=== PATIENT | female | born 1940 | race African-American/Black ===

== ENCOUNTER 2022-04-05 06:38 | Emergency (ER) | payer MEDICARE, OTHER ==
[~2022-04-05] VITALS: Ht 165.1 cm; Wt 64.0 kg
[2022-04-05] MEDS ORDERED: SODIUM CHLORIDE 0.9% 1,000 ML IV ONE (09:00)
[2022-04-05] MEDS ORDERED: NEOMYCIN-BACITRACIN-POLYM UNITDOSE PKG TOP OINT TOP ONE (09:00)
[2022-04-05] MEDS ORDERED: LIDOCAINE 2%HCL (LOCAL ANESTH.) INJ 20ML MDV ID ONE (09:00)
[2022-04-05 09:55] LABS: Basophils # (auto) 0 10 ^3/uL (0-0.2); Eosinophils # (auto) 0.2 10 ^3/uL (0-0.8); Eosinophils % (auto) 4.8 % (0.0-7.0); Hematocrit 29.6 % (36.0-46.0); Hemoglobin 9.8 g/dL (12.2-16.2); Lymphocytes # (auto) 0.9 10 ^3/uL (0.4-5.4); Lymphocytes % (auto) 20.7 % (10.0-50.0); Mean Corpuscular Hemoglobin 32.5 pg (28.0-32.0); Mean Corpuscular Hgb Conc. 33.2 g/dL (32.0-36.0); Monocytes # (auto) 0.3 10 ^3/uL (0-1.3); Monocytes % (auto) 6.9 % (0.0-12.0); Neutrophils # (auto) 2.9 10 ^3/uL (1.6-8.6); Neutrophils % (auto) 66.6 % (37.0-80.0); Nucleated Red Blood Cells % 0.4 %; Red Blood Cells 3.02 10^6/uL (4.0-5.20); Red Cell Distribution Width 16.4 % (11.8-14.3); White Blood Cell 4.4 10^3/uL (4.4-10.8)
[2022-04-05 10:26] LABS: Albumin 2.8 g/dL (3.4-5.0); Calcium 8.2 mg/dL (8.5-10.1); Magnesium 2.5 mg/dL (1.6-2.6); Potassium 4.1 mmol/L (3.5-5.1)
[2022-04-05 10:30] LABS: BUN/Creatinine Ratio 17.4; Bilirubin, Total 0.3 mg/dL (0.2-1.0); Total Protein 5.2 g/dL (6.4-8.2)
[2022-04-05 12:05] VITALS: BP 133/78
[2022-04-05 12:49] LABS: Urine Bacteria NONE SEEN /hpf (None Seen); Urine Blood Negative /uL (Negative); Urine Specific Gravity 1.014 (1.001-1.035); Urine WBC 1 /hpf (0 - 5)
== END 2022-04-05 14:28 | disposition home or self-care (01) ==
LOC: ER 06:38 → EDBD 06:38 → ER 14:13
DX: S01.81XA Laceration without foreign body of other part of head, initial encounter (principal); M47.892 Other spondylosis, cervical region; D64.9 Anemia, unspecified; I10 Essential (primary) hypertension; Z90.710 Acquired absence of both cervix and uterus; W19.XXXA Unspecified fall, initial encounter; Y93.89 Activity, other specified; Y92.89 Other specified places as the place of occurrence of the external cause; Y99.8 Other external cause status
CPT/HCPCS: 36415; 70450; 72125; 80053; 81001; 83735; 84484; 85025; 93005

== ENCOUNTER 2024-10-12 11:37 | Emergency (ER) | payer OTHER ==
[~2024-10-12] VITALS: Ht 160 cm; Wt 60.0 kg
[~2024-10-12 11:37] MED LIST: MELO7.5T7 PO
--- NOTE | 2024-10-12 12:02 | ED.PDOC ---
Tima. trauma (HPI) HPI Comments 84 y/o F, with PMHx of HTN, CALINA presents to the ED for CC of s/p fall injury. EMS reports, patient is coming from home where emergency medical services were called by her home health nurse, d/t patient suffering a ground level fall on Wednesday (10/08/24). Patient states, she accidently fell to the ground landing on her left side on Wednesday (10/11/24). Patient relays, that she has been able to bear weight onto her left leg and walk appropriately without pain. Patient comments on, being able to bend at the hips appropriately states "I was picking weeds yesterday". Patient denies pain, head injury, loss of consciousness, nausea, or vomiting. No other symptoms or modifying factors present at this t anisa. Time Seen by MD: 11:45 Primary Care Provider: GEORGIE Reviewed notes: Nurses Notes, Medications, Allergies Allergies: Coded Allergies: Memantine (Verified Allergy, Severe, 08/20/23) Home Meds Active Scripts Meloxicam (Meloxicam) 7.5 Mg Tab, 7.5 MG PO DAILY PRN, #30 TAB Prov:TATE PATEL [facility] 08/20/23 Information Source: Patient, Emergency Med Personnel Mode of Arrival: EMS Severity: Moderate Timing: Days Duration: Since onset Prehospital treatment: None Location: (L) Ankle, (L) Hip Location of laceration: None Mechanism: Fall Associated signs and symtoms: None Past Medical History PAST MEDICAL HISTORY: HTN Surgical History: Hysterectomy RESIDENTIAL FEE APPRAISER History: Denies all RESIDENTIAL FEE 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 Hx Family History Family History: Reviewed,noncontributory to illness Social History Smoker: Non-Smoker Alcohol: Denies ETOH Use Drugs: Denies Drug Use Lives In: Home Constitutional: denies: chills, diaphoresis, fatigue, fever, malaise, sweats, weakness, others EENTM: denies: blurred vision, double vision, ear bleeding, ear discharge, ear drainage, ear pain, ear ringing, eye pain, eye redness, hearing loss, mouth pain, mouth swelling, nasal discharge, nose bleeding, nose congestion, nose pain, photophobia, tearing, throat pain, throat swelling, voice changes, others Respiratory: denies: cough, hemoptysis, orthopnea, SOB at rest, shortness of breath, SOB with excertion, stridor, wheezing, others Cardiovascular: denies: chest pain, dizzy spells, diaphoresis, Dyspnea on exertion, edema, irregular heart beat, left arm pain, lightheadedness, palpitations, PND, syncope, others Gastrointestinal: denies: abdomen distended, abdominal pain, blood streaked bowels, constipated, diarrhea, dysphagia, difficulty swallowing, hematemesis, melena, nausea, poor appetite, poor fluid intake, rectal bleeding, rectal pain, vomiting, others Genitourinary: denies: abnormal vagina bleeding, burning, dyspareunia, dysuria, flank pain, frequency, hematuria, incontinence, pain, , vagina discharge, urgency, others Neurological: denies: dizziness, fainting, headache, left sided numbness, left sided weakness, numbness, paresthesia, pre-existing deficit, right sided numbness, right sided weakness, seizure, speech problems, tingling, tremors, weakness, others Musculoskeletal: reports: back pain; denies: gout, joint pain, joint swelling, muscle pain, muscle stiffness, neck pain, others Integumetry: denies: bruises, change in color, change in hair/nails, dryness, laceration, lesions, lumps, rash, wounds, others Allergic/Immunocompromised: denies: Difficulty Healing, Frequent Infections, Hives, Itching, others Hematologic/Lymphatic: denies: anemia, blood clots, easy bleeding, easy bruising, swollen glands, others Endocrine: denies: excessive hunger, excessive sweating, excessive thirst, excessive urination, flushing, intolerance to cold, intolerance to heat, unexplained weight gain, unexplained weight loss, others Psychiatric: denies: anxiety, bipolar disorder, depression, hopeless, panic disorder, schizophrenia, sleepless, suicidal, others All Other Systems: Reviewed and Negative Physical Exam General Appearance: Moderate Distress HEENT: Normal ENT Inspection, Pharynx Normal, TMs Normal Neck: Full Range of Motion, Non-Tender, Normal, Normal Inspection Respiratory: Chest Non-Tender, Lungs Clear, No Accessory Muscle Use, No Respiratory Distress, Normal Breath Sounds Cardiovascular: No Edema, No JVD, No Murmur, No Gallop, Normal Peripheral Pulses, Regular Rate/Rhythm Breast Exam: Deferred Gastrointestinal: No Organomegaly, Non Tender, No Pulsatile Mass, Normal Bowel Sounds, Soft Genitalia: Deferred Pelvic: Deferred Rectal: Deferred Extremities: No calf tenderness, Normal capillary refill, Normal inspection, Normal range of motion, Non-tender, No pedal edema Musculoskeletal : Apperance: Normal Neurologic: Alert, financial report service sales agent II-XII nml as Tested, No Motor Deficits, Normal Affect, Normal Mood, No Sensory Deficits Cerebellar Function: NOT DONE Reflexes: NOT DONE Skin: Dry, Normal Color, Warm Peripheral Pulses: 3+ Radial (R), 3+ Radial (L) Lymphatic: No Adenopathy Was a procedure done? Was a procedure done?: No Differential Diagnosis Multiple Trauma: Fractures, Spine Injury X-Ray, Labs, Meds, VS Vital Signs Date Time Temp Pulse Resp B/P (MAP) Pulse Ox O2 Delivery O2 Flow Rate FiO2 10/12/24 12:11 98.3 68 16 114/65 (81) 97 98.3 [place] [address] Ph: [phone] DIAGNOSTIC IMAGING Diagnostic Imaging Report : [id number] Signed PATIENT: KERRY BARRON ACCT: [id number] UNIT: [id number] : 1940 LOC: ER ROOM / BED: / AGE / SEX: 84 / F ADM STATUS: REG ER SERVICE 1143 ORDERING PHYSICIAN: CHAS BONILLA MD PROCEDURE(s): PELVS - PELVIS AP REASON: fall ORDER NUMBER(s): [id number], ACCESSION NUMBER(s): [id number] CLINICAL INDICATION: fall TECHNIQUE: XY PELVIS AP Comparison: CT PELVIS WO CONTRAST on DOS: 08/20/23. For reasons unknown, left hip and femur radiographs dated 09/25/2024 were not made available on the PACS system for viewing. FINDINGS/IMPRESSION: : 1. No acute fracture of the pelvis or hips. 2. Postoperative changes of left proximal femoral trochanteric nail fixation. T he femoral stem is not fully imaged here. Please correlate with left hip and left femur radiographs dated 09/25/2024, as those were not made available for my viewing at the time of this reading. 3. Advanced lower lumbar degenerative disc disease and facet arthropathy, not fully imaged here. ATED BY: SCOTTY WILLINGHAM MD DICTATED DATE/TIME: 10/12/24 1238 SIGNED BY: SCOTTY WILLINGHAM MD SIGNED DATE/TIME: 10/12/24 1238 CC: [place] [address] Ph: [phone] DIAGNOSTIC IMAGING Diagnostic Imaging Report : [id number] Signed PATIENT: KERRY BARRON ACCT: [id number] UNIT: [id number] : 1940 LOC: ER ROOM / BED: / AGE / SEX: 84 / F ADM STATUS: REG ER SERVICE 120 ORDERING PHYSICIAN: CHAS BONILLA MD PROCEDURE(s): LUMB2 - LUMBAR SPINE 3 VIEW REASON: PAIN S/P FALL ORDER NUMBER(s): [id number], ACCESSION NUMBER(s): [id number] INDICATION: PAIN S/P FALL TECHNIQUE: 4 views of the lumbar spine were obtained. COMPARISON: None FINDINGS/IMPRESSION: No acute subluxation. Grade 1 anterolisthesis of L4 on L5. Diffuse osteopenia limits sensitivity of the examination. Age indeterminate likely chronic compression fractures of L5 and L2 vertebral body. Age indeterminate compression deformity, mild of the T12 vertebral body. ATED BY: DEVON CLARK MD DICTATED DATE/TIME: 10/12/24 1248 SIGNED BY: DEVON CLARK MD SIGNED DATE/TIME: 10/12/24 1248 CC: Patient alert. Complaining of hip pain. Vitals stable. Answering questions. She did fall several days ago. Has been ambulating since then. Pristine physical examination. Explained to the patient. Was told to follow up with her primary care physician. Was told to come back if there is any problem. Time of 1ST Reevaluation: 12:15 Reevaluation 1ST: Unchanged Patient Education/Counseling: Diagnosis, Treatment Family Education/Counseling: No Family Present Departure 1 Departure Time of Disposition: 12:42 Impression: Primary Impression: Degenerative disc disease Qualified Codes: M51.369 - Other intervertebral disc degeneration, lumbar region without mention of lumbar back pain or lower extremity pain Disposition: ADMITTED INPATIENT Admit to: Med Surg Condition: Guarded Critical Care Note Critical Care Time?: No Stability Stability form required: No Heart Score Heart Score: Heart Score Response (Comments) Value History N/A 0 EKG N/A 0 Age N/A 0 Risk Factors N/A 0 Troponin N/A 0 Total 0 I personally scribed for CHAS BONILLA MD ([email or web address]) on 10/12/24 at 12:02. Electronically submitted by Marine Washington ([employer] I personally scribed for CHAS BONILLA MD ([email or web address]) on 10/12/24 at 12:09. Electronically submitted by Marine Washington ([employer]). I personally scribed for CHAS BONILLA MD ([email or web address]) on 10/12/24 at 13:39. Electronically submitted by Marine Washington ([employer]). I personally scribed for CHAS BONILLA MD ([email or web address]) on 10/12/24 at 13:40. Electronically submitted by Marine Washington ([employer]). CHAS BONILLA MD October 12, 2024 12:02
--- NOTE | 2024-10-12 12:41 | DVH ---
CLINICAL INDICATION: fall TECHNIQUE: XY PELVIS AP Comparison: CT PELVIS WO CONTRAST on DOS: 08/20/23. For reasons unknown, left hip and femur radiograph s dated 09/25/2024 were not made available on the PACS system for viewing. FINDINGS/IMPRESSION: : 1. No acute fracture of the pelvis or hips. 2. Postoperative changes of left proximal femoral trochanteric nail fixation. The femoral stem is not fully imaged here. Please correlate with left hip and left femur radiographs dated 09/25/2024, as th ose were not made available for my viewing at the time of this reading. 3. Advanced lower lumbar degenerative disc disease and facet arthropathy, not fully imaged here.
--- NOTE | 2024-10-12 12:50 | DVH ---
INDICATION: PAIN S/P FALL TECHNIQUE: 4 views of the lumbar spine were obtained. COMPARISON: None FINDINGS/IMPRESSION: No acute subluxation. Grade 1 anterolisthesis of L4 on L5. Diffuse osteopenia limits sensitivity of the examination. Age indeterminate likely chronic compression fractures of L5 and L2 vertebral body. Age indeterminate compression deformity, mild of the T12 vertebral body.
[2024-10-12 13:42] VITALS: BP 130/73; PULSE 69; RESP 18; TEMP 98.7; O2SAT 97
== END 2024-10-12 14:05 | disposition home or self-care (01) ==
LOC: EDBD 11:37 → ER 11:37 → EDUNIT# 11:37 → ER 14:05
DX: M51.369 Other intervertebral disc degeneration, lumbar region without mention of lumbar back pain or lower extremity pain (principal); I10 Essential (primary) hypertension; Z90.710 Acquired absence of both cervix and uterus; Z79.899 Other long term (current) drug therapy; Z88.8 Allergy status to other drugs, medicaments and biological substances
CPT/HCPCS: 72100; 72170

== ENCOUNTER 2024-11-13 00:01 | Inpatient (IN) | payer OTHER ==
[~2024-11-13] VITALS: Ht 157.5 cm; Wt 73.2 kg
[2024-11-13 00:31] VITALS: PULSE 68; RESP 18; O2SAT 97
[2024-11-13 00:44] LABS: Hematocrit 31.7 % (36.0-46.0); Hemoglobin 10.5 g/dL (12.2-16.2); Mean Corpuscular Hemoglobin 31.6 pg (28.0-32.0); Mean Corpuscular Volume 95.3 fL (80.0-100.0)
[2024-11-13 00:50] LABS: Potassium 4.3 mmol/L (3.5-5.1); Sodium 142 mmol/L (136-145)
[2024-11-13 00:51] LABS: Anion Gap 11 (5-15); Carbon Dioxide 24 mmol/L (20-31)
[2024-11-13 00:56] LABS: BUN/Creatinine Ratio 16.2 (10.0-20.0); Blood Urea Nitrogen 16 mg/dL (9-23); Glucose 96 mg/dL (74-106)
[2024-11-13] MEDS: fentaNYL CITRATE 100 MCG/2 ML VL IV ONE (00:58)
--- NOTE | 2024-11-13 00:58 | DVH ---
CLINICAL INDICATION: injury TECHNIQUE: XY R SHOULDER 2+ VIEW XRAY Comparison: None FINDINGS/IMPRESSION: : There is no evidence of acute fracture or dislocation. The humeral head is moderately high riding. [id number] glenohumeral joint space narrowing and m arginal osteophytosis and moderate hypertrophic acromioclavicular arthropathy and joint space narrowi ng. Soft tissues are unremarkable.
[2024-11-13 01:11] LABS: Calcium 8.7 mg/dL (8.7-10.4); Chloride 107 mmol/L (98-107)
--- NOTE | 2024-11-13 01:30 | ED.PDOC ---
History of Present Illness HPI Comments 84 y/o F is BIBA from home for c/o right hip and shoulder pain s/p mechanical fall and head injury. Per EMS report, patient's daughter called after having an unwitnessed fall. Patient reports on losing her balance, while ambulating with her walker, and falling backwards and hitting her head without lost of c onsciousness, yesterday evening at around 1700. She has a significant history of DJD, DDD, HTN, left hip repair, chronic bilateral ankle swelling - on Lasix, and frequent falls. Vitals were within normal limits. No history of blood thinner use. Patient denies any headache, weakness, dizziness, lightheadedness, additional injuries, or further associated symptoms. Chief Complaint: Fall Injury Time Seen by MD: 00:15 Primary Care Provider: UNKNOWN Reviewed Notes: Nurses Notes, Chief Bank Examiner Notes, Medications, Allergies Allergies: Coded Allergies: Memantine (Verified Allergy, Severe, 08/20/23) Home Meds Active Scripts Meloxicam (Meloxicam) 7.5 Mg Tab, 7.5 MG PO DAILY PRN, #30 TAB Prov:TATE PATEL [facility] 08/20/23 Information Source: Patient, Emergency Med Personnel Mode of Arrival: EMS Severity: Moderate Timing: Hours Duration: Since onset Prehospital treatment: 12 Lead EKG, Accucheck, Broadcast Program Director Past Medical History PAST MEDICAL HISTORY: HTN Past Medical History (Other): DDD DJD frequent falls Surgical History: Hysterectomy Surgical History (Other): left hip repair SH[employer]ILL[employer] History: Denies all [employer] Hx Family History Family History: Reviewed,noncontributory to illness Social History Smoker: Non-Smoker Alcohol: Denies ETOH Use Drugs: Denies Drug Use Lives In: Home All Other Systems: Reviewed and Negative (Comprehensive systems review obtained and negative except for what is stated in the HPI.) Physical Exam General Appearance: No Apparent Distress, Normal HEENT: Normal ENT Inspection, Pharynx Normal, TMs Normal Neck: Full Range of Motion, Non-Tender, Normal, Normal Inspection Respiratory: Chest Non-Tender, Lungs Clear, No Accessory Muscle Use, No Respiratory Distress, Normal Breath Sounds Cardiovascular: No Edema, No JVD, No Murmur, No Gallop, Normal Peripheral Pulses, Regular Rate/Rhythm Breast Exam: Deferred Gastrointestinal: No Organomegaly, Non Tender, No Pulsatile Mass, Normal Bowel Sounds, Soft Genitalia: Deferred Pelvic: Deferred Rectal: Deferred Extremities: Leg edema (3+ bilateral pedal edema ), No calf tenderness, Normal capillary refill, Normal range of motion, No pedal edema, Tender (right shoulder and proxisymal thigh tenderness ) Musculoskeletal : Location: Right Extremity Location: Shoulder, Thigh Apperance: Normal, Tenderness Neurologic: Alert, short range air defense artillery II-XII nml as Tested, No Motor Deficits, Normal Affect, Normal Mood, No Sensory Deficits Cerebellar Function: Normal Reflexes: Normal Skin: Dry, Normal Color, Warm Lymphatic: No Adenopathy Was a procedure done? Was a procedure done?: No Differential Dx Considerations may include: fractures, dislocations, contusions, bruising, closed head injury, sprain, among others X-Ray, Labs, Meds, VS Vital Signs Date Time Temp Pulse Resp B/P (MAP) Pulse Ox O2 Delivery O2 Flow Rate FiO2 11/13/24 00:58 120/78 11/13/24 00:31 98.1 74 18 119/64 (82) 97 98.1 11/13/24 00:31 68 18 97 Room Air* 0 21 11/13/24 00:10 98.4 73 20 98 98.4 Lab Test 11/13/24 00:31 Range/Units White Blood Count 13.1 H 4.4-10.8 10^3/uL Red Blood Count 3.33 L 4.0-5.20 10^6/uL Hemoglobin 10.5 L 12.2-16.2 g/dL Hematocrit 31.7 L 36.0-46.0 % Mean Corpuscular Volume 95.3 80.0-100.0 fL Mean Corpuscular Hemoglobin 31.6 28.0-32.0 pg Mean Corpuscular Hemoglobin Concent 33.2 32.0-36.0 g/dL Red Cell Distribution Width 24.0 H 11.8-14.3 % Platelet Count 383 140-450 10^3/uL Mean Platelet Volume 7.3 6.9-10.8 fL Neutrophils (%) (Auto) 37.0-80.0 % Lymphocytes (%) (Auto) 10.0-50.0 % Monocytes (%) (Auto) 0.0-12.0 % Basophils (%) (Auto) 0.0-2.0 % Neutrophils # (Auto) 1.6-8.6 10 ^3/uL Lymphocytes # (Auto) 0.4-5.4 10 ^3/uL Monocytes # (Auto) 0-1.3 10 ^3/uL Differential Total Cells Counted 100.0 100 Neutrophils % (Manual) 39 37.0-80.0 Band Neutrophils % (Manual) 0 Lymphocytes % (Manual) 36 10.0-50.0 Monocytes % (Manual) 3 0-12 Eosinophils % (Manual) 22 H 0-7 Basophils % (Manual) 0 0.0-2.0 Metamyelocytes % (manual) 0 Myelocytes % (Manual) 0 Promyelocytes % (Manual) 0 Blast Cells % (Manual) 0 Reactive Lymphocytes 0 Platelet Estimate Adequate Anisocytosis (manual) Slight Sodium Level 142 136-145 mmol/L Potassium Level 4.3 3.5-5.1 mmol/L Chloride Level 107 98-107 mmol/L Carbon Dioxide Level 24 20-31 mmol/L Anion Gap 11 5-15 Blood Urea Nitrogen 16 9-23 mg/dL Creatinine 0.99 0.550-1.02 mg/dL Glomerular Filtration Rate Calc 56 >90 mL/min BUN/Creatinine Ratio 16.2 10.0-20.0 Serum Glucose 96 74-106 mg/dL Calcium Level 8.7 8.7-10.4 mg/dL Current Medications Medications (Trade) Dose Ordered Sig/Santiago Route Start Time Stop Time Status Last Admin Fentanyl Citrate 12.5 mcg ONCE ONCE IV 11/13/24 00:30 11/13/24 00:31 DC 11/13/24 00:58 [place] [address] Ph: [phone] DIAGNOSTIC IMAGING Diagnostic Imaging Report : [id number] Signed PATIENT: KERRY BARRON ACCT: [id number] UNIT: [id number] : 1940 LOC: ER ROOM / BED: / AGE / SEX: 84 / F ADM STATUS: REG ER SERVICE 0018 ORDERING PHYSICIAN: KAYLYN ALEX MD PROCEDURE(s): RSHD2 - R SHOULDER 2+ VIEW XRAY REASON: injury ORDER NUMBER(s): [id number], ACCESSION NUMBER(s): [id number] CLINICAL INDICATION: injury TECHNIQUE: XY R SHOULDER 2+ VIEW XRAY Comparison: None FINDINGS/IMPRESSION: : There is no evidence of acute fracture or dislocation. The humeral head is moderately high riding. Xpki-[id number] glenohumeral joint space narrowing and marginal osteophytosis and moderate hypertrophic acromioclavicular arthropathy and joint space narrowing. Soft tissues are unremarkable. ATED BY: JEFF BARRERA MD DICTATED DATE/TIME: 11/13/2455 SIGNED BY: JEFF BARRERA MD SIGNED DATE/TIME: 11/13/2455 CC: Time of 1ST Reevaluation: 00:45 Reevaluation 1ST: Unchanged Time of 2ND Reevaluation: 01:36 Reevaluation 2ND: Unchanged Patient Education/Counseling: Diagnosis, Treatment, Prognosis, Need For Follow Up Family Education/Counseling: No Family Present Comments pt suffered a fall, injuring her right hip, with intractable pain, and inability to bear weight. she will be admitted for pain control and further Evaluation Additional Information Previous visits reviewed: April 05, 2022, August 20, 2023, and October 12, 2024 encounters for fall at home, fracture of finger of right hand, and degenerative disc disease, respectively The following tests were ordered, and results were reviewed by me: manual differentia, BMP, CBC, CT right hip w/o contrast, right shoulder X-ray Additional Information was gathered from interviewing the following independent historians: EMS I reviewed and agreed with the following test results read by other providers: CT right hip w/o contrast, right shoulder X-ray I discussed treatment and results with medical personnel and: patient SEPSIS Sepsis Screen Date sepsis recognized/suspect: Nov 13, 2024 Time Sepsis recognized/suspect: 003 Recent Procedure: No On Antibiotic Therapy: No Respiratory Rate >20: No Heart Rate >90: No Temp<36 C (96.8 F) or >38.3 C: No SBP <90 or MAP <65 mmHG: No New Acute Mental Status Change: No Is the patient on CPAP, BIPAP,: No Physician Orders R Shoulder 2+ View Xray (11/13/24 00:18) Ct R Hip With Out Contrast (11/13/24 00:18) Vital Signs Date Time Temp Pulse Resp B/P (MAP) Pulse Ox O2 Delivery O2 Flow Rate FiO2 11/13/24 00:58 120/78 11/13/24 00:31 98.1 74 18 119/64 (82) 97 98.1 11/13/24 00:31 68 18 97 Room Air* 0 21 11/13/24 00:10 98.4 73 20 98 98.4 Laboratory Tests Test 11/13/24 00:31 White Blood Count 13.1 10^3/uL (4.4-10.8) H Medications Medications Dose Ordered Sig/Santiago Route Start Time Stop Time Status Last Admin Dose Admin Fentanyl Citrate 12.5 mcg ONCE ONCE IV 11/13/24 00:30 11/13/24 00:31 DC 11/13/24 00:58 Departure 1 Departure Time of Disposition: 02:37 Impression: Primary Impression: Pubic ramus fracture Qualified Codes: S32.591A - Other specified fracture of right pubis, initial encounter for closed fracture Additional Impressions: Intractable pain Fall Qualified Codes: W19.XXXA - Unspecified fall, initial encounter Disposition: ADMITTED INPATIENT Admit to: Med Surg Condition: Stable Discharged With: Self Critical Care Note Critical Care Time?: Yes (45 min-critical care time only) Critical care comment: Due to concerns for patients condition deteriorating, the care required my highest level of attention and readiness to intervene. I assessed the patient, reviewed the medical records, ordered the appropriate tests and treatments, then reassessed for results and responsiveness. I communicated with medical personnel and consultants and formulated a plan of care. Total critical care time excludes any procedures Stability Stability form required: No Heart Score Heart Score: Heart Score Response (Comments) Value History N/A 0 EKG N/A 0 Age N/A 0 Risk Factors N/A 0 Troponin N/A 0 Total 0 I personally scribed for KAYLYN ALEX MD ([email or web address]) on 11/13/24 at 01:30. Electronically submitted by Primitivo Bell ([email or web address]). I personally scribed for KAYLYN ALEX MD ([email or web address]) on 11/13/24 at 02:01. Electronically submitted by Primitivo Bell ([email or web address]). KAYLYN ALEX MD Nov 13, 2024 01:30
[2024-11-13 01:45] LABS: Anisocytosis Slight; Total Cells Counted 100.0 (100)
--- NOTE | 2024-11-13 02:17 | DVH ---
INDICATION: injury COMPARISON: None TECHNIQUE: CT of the rightleft was performed without contrast. Volume transverse images were obtain ed and reconstructed in multiple planes using bone and soft tissue algorithms. Radiation Dose Information: CT Dose: CTDI volume is 16.39 mGy. Dose-length product is 480.37 mGy*cm FINDINGS: Faint irregular linear lucency within the medial aspect of the superior right pubic ramus best visual ized on image 69 of series 601 and image 70 of series 602, consistent with acute to subacute nondis placed fracture. Moderate osteoarthritic degenerative change of the right hip includes joint space narrowing, marginal osteophytosis and acetabular subchondral sclerosis. The alignment is otherwise normal. The joint spaces are normal. There is no joint effusion. The soft tissues are normal status post hysterectomy. IMPRESSION: 1. Acute to subacute nondisplaced fracture of the medial right superior pubic ramus. 2. Degenerative change of the right hip. 3. All CT scans at this medical facility are performed using dose modulation techniques as appropriat e to a performed exam including the following: Automated exposure control was utilized; adjustment of the MA and/or KV according to patient size; and use of iterative reconstruction technique.
[2024-11-13 07:30] VITALS: PULSE 82; RESP 20; O2SAT 97
--- NOTE | 2024-11-13 07:57 | DVHHP2 ---
History of Present Illness Reason for Visit: Fall with injury History of Present Illness Gabriela Lunsford is an 84-year-old female with past medical history of hypertension, and DJD who came to the hospital S/P fall. Patient ambulates with a walker. She states she was walking and her slipper slipped, she lost her footing and fell back. She complains of shoulder and hip pain. Cardiovascular: HTN Musculoskeletal: Other (DDD) Past Surgical History: Hysterectomy, Total hip replacement (left) Smoke: No ALCOHOL: none Drugs: None Lives: with Family Domestic Violence: Neg Review of Systems Constitutional: No: Fever, Chills, Sweats, Weakness, Malaise, Other Eyes: No: Pain, Vision change, Conjunctivae inflammation, Eyelid inflammation, Other, Redness ENT: No: Ear pain, Ear discharge, Nose pain, Nose discharge, Nose congestion, Mouth pain, Mouth swelling, Throat pain, Throat swelling, Other Respiratory: No: Cough, Dry, Shortness of breath, SOB with excertion, Wheezing, Hemoptysis, Pleuritic Pain, Sputum, Wheezing, Other Cardiovascular: No: Chest Pain, Palpitations, Orthopnea, Paroxysmal Noc. Dyspnea, Edema, Lt Headedness, Other Gastrointestinal: No: Nausea, Vomiting, Abdominal Pain, Diarrhea, Constipation, Melena, Hematochezia, Other Genitourinary: No Dysuria, No Frequency, No Incontinence, No Hematuria, No Retention, No Other Musculoskeletal: shoulder pain (right), leg pain (right hip); No: other, neck pain, arm pain, back pain, hand pain, foot pain Skin: No: Rash, Lesions, Jaundice, Bruising, Other Neurological: No: Weakness, Numbness, Incoordination, Change in speech, Confusion, Seizures, Other Allergies: Coded Allergies: Memantine (Verified Allergy, Severe, 08/20/23) Exam Vital Signs Vital Signs Date Time Temp Pulse Resp B/P (MAP) Pulse Ox O2 Delivery O2 Flow Rate FiO2 11/13/24 05:49 98.1 67 18 129/67 (87) 99 98.1 11/13/24 00:31 Room Air* 0 21 General Appearance: Alert, Oriented X3, Cooperative, mild distress HEENT: Atraumatic, PERRLA Respiratory: Clear to auscultation, Normal air movement Cardiovascular: Normal S1, Normal S2, Other (SB-SR) Abdominal: Normal bowel sounds, Soft, No tenderness Extremities: No clubbing, No cyanosis, Other (right shoulder pain, right hip pain) Skin: No rashes, No breakdown, No significant lesion Neuro: Normal speech, Other (Difficulty ambulation due to pain) Psych/Mental Status: Mental status NL, Mood NL Labs/Xrays Labs Test 11/13/24 00:31 Range/Units White Blood Count 13.1 H 4.4-10.8 10^3/uL Red Blood Count 3.33 L 4.0-5.20 10^6/uL Hemoglobin 10.5 L 12.2-16.2 g/dL Hematocrit 31.7 L 36.0-46.0 % Mean Corpuscular Volume 95.3 80.0-100.0 fL Mean Corpuscular Hemoglobin 31.6 28.0-32.0 pg Mean Corpuscular Hemoglobin Concent 33.2 32.0-36.0 g/dL Red Cell Distribution Width 24.0 H 11.8-14.3 % Platelet Count 383 140-450 10^3/uL Mean Platelet Volume 7.3 6.9-10.8 fL Neutrophils (%) (Auto) 37.0-80.0 % Lymphocytes (%) (Auto) 10.0-50.0 % Monocytes (%) (Auto) 0.0-12.0 % Basophils (%) (Auto) 0.0-2.0 % Neutrophils # (Auto) 1.6-8.6 10 ^3/uL Lymphocytes # (Auto) 0.4-5.4 10 ^3/uL Monocytes # (Auto) 0-1.3 10 ^3/uL Differential Total Cells Counted 100.0 100 Neutrophils % (Manual) 39 37.0-80.0 Band Neutrophils % (Manual) 0 Lymphocytes % (Manual) 36 10.0-50.0 Monocytes % (Manual) 3 0-12 Eosinophils % (Manual) 22 H 0-7 Basophils % (Manual) 0 0.0-2.0 Metamyelocytes % (manual) 0 Myelocytes % (Manual) 0 Promyelocytes % (Manual) 0 Blast Cells % (Manual) 0 Reactive Lymphocytes 0 Platelet Estimate Adequate Anisocytosis (manual) Slight Sodium Level 142 136-145 mmol/L Potassium Level 4.3 3.5-5.1 mmol/L Chloride Level 107 98-107 mmol/L Carbon Dioxide Level 24 20-31 mmol/L Anion Gap 11 5-15 Blood Urea Nitrogen 16 9-23 mg/dL Creatinine 0.99 0.550-1.02 mg/dL Glomerular Filtration Rate Calc 56 >90 mL/min BUN/Creatinine Ratio 16.2 10.0-20.0 Serum Glucose 96 74-106 mg/dL Calcium Level 8.7 8.7-10.4 mg/dL CT of the right hip was performed without contrast. FINDINGS: Faint irregular linear lucency within the medial aspect of the superior right pubic ramus best visualized on image 69 of series 601 and image 70 of series 602, consistent with acute to subacute nondisplaced fracture. Moderate osteoarthritic degenerative change of the right hip includes joint space narrowing, marginal osteophytosis and acetabular subchondral sclerosis. The alignment is otherwise normal. The joint spaces are normal. There is no joint effusion. The soft tissues are normal status post hysterectomy. IMPRESSION: 1. Acute to subacute nondisplaced fracture of the medial right superior pubic ramus. 2. Degenerative change of the right hip. Shoulder X-Ray FINDINGS/IMPRESSION: : There is no evidence of acute fracture or dislocation. The humeral head is moderately high riding. [id number] glenohumeral joint space narrowing and marginal osteophytosis and moderate hypertrophic acromioclavicular arthropathy and joint space narrowing. Soft tissues are unremarkable. Assessment/Plan Assessment/Plan Assessment: Pubic ramus fracture, Fall with injury, Hypertension, DDD, Plan: Admit to Med-Surg, Orthopedic surgery consult, Pain management, Fall precautions, Physical therapy evaluation, Home medications reconciled, Plan discussed with: Patient My Orders Orders - CLOTILDE VIDAL Procedure Category Date Status Time Admit ADMIT 11/13/24 Verified 07:53 Code Status CODE 11/13/24 Verified 07:53 2 Gm Sodium Diet DIET 11/13/24 Verified Breakfast Hydrocodone-Acet PHA 11/13/24 Verified 5/325mg Tab ([place] 08:00 Ondansetron Hcl PHA 11/13/24 Verified (Zofran) 08:00 Docusate Sodium PHA 11/13/24 Verified Capsule (Colace 08:00 Fall Risk Precautions PRAVEEN 11/13/[address] 07:53 Complete Blood Count LAB 11/14/24 Verified 04:00 Comprehensive LAB 11/14/24 Verified Metabolic Panel 04:00 Pt Request For Service PT 11/13/24 Verified 07:53 Condition: Serious PRAVEEN 11/13/24 Verified 07:53 Acetaminophen Tablet PHA 11/13/24 Verified (Tylenol Tablet) 08:00 Date of Service: Nov 13, 2024 Billing Provider: CLOTILDE VIDAL Common Visit Codes: [id number] INP/OBS CARE (MOD) CLOTILDE VIDAL Nov 13, 2024 07:57
[2024-11-13] MEDS ORDERED: DOCUSATE SOD 100 MG CAP PO PRN (08:00)
[2024-11-13] MEDS ORDERED: ONDANSETRON HCL 4 MG/2 ML VIAL IV PRN (08:00)
[2024-11-13] MEDS ORDERED: ACETAMINOPHEN 325 MG TAB PO PRN (08:00)
[2024-11-13 14:30] VITALS: BP 111/64; PULSE 76; RESP 18; TEMP 98.7; O2SAT 98
[2024-11-13 14:43] VITALS: PULSE 76; RESP 18; O2SAT 98
[2024-11-13 16:44] VITALS: BP 111/72; PULSE 77; RESP 18; TEMP 99.5; O2SAT 93
[2024-11-13] MEDS: diphenhdrAMINE HCL 50 MG/1 ML VL IV PRN (17:50)
[2024-11-13] MEDS ORDERED: BUME1TAB3 PO (18:14)
[2024-11-13] MEDS ORDERED: AMLO1TAB23 PO (18:14)
[2024-11-13] MEDS ORDERED: ALEN70TA74 PO (18:14)
[2024-11-13] MEDS ORDERED: HYDR-3682 PO (18:14)
[2024-11-13] MEDS ORDERED: PRE5T PO (18:14)
[2024-11-13] MEDS: HYDROcodone-ACET 5/325MG TAB PO PRN (19:38)
[2024-11-13] MEDS: hydrOXYzine 25 MG TAB or CAP PO SCH (21:21)
[2024-11-14] VITALS (7 sets, daily range): BP systolic 97–129; BP diastolic 60–71; PULSE 76–88; RESP 16–19; TEMP 97.7–99.3; O2SAT 92–100
[2024-11-14] MEDS: BUMETANIDE 1 MG TAB PO SCH (05:42)
[2024-11-14] MEDS ORDERED: ALENDRONATE 70 MG PO SCH (06:00)
[2024-11-14 06:10] LABS: Hematocrit 28.3 % (36.0-46.0); Hemoglobin 9.6 g/dL (12.2-16.2)
[2024-11-14 06:12] LABS: Mean Corpuscular Hemoglobin 31.9 pg (28.0-32.0); Mean Corpuscular Volume 94.6 fL (80.0-100.0)
[2024-11-14 06:39] LABS: Alkaline Phosphatase 75 U/L (46-116); BUN/Creatinine Ratio 19.8 (10.0-20.0); Bilirubin, Total 0.4 mg/dL (0.2-1.0); Blood Urea Nitrogen 17 mg/dL (9-23); Glucose 84 mg/dL (74-106); Potassium 4.0 mmol/L (3.5-5.1); Sodium 142 mmol/L (136-145)
[2024-11-14 06:55] LABS: Alanine Aminotransferase 9 U/L (7-40); Albumin 2.9 g/dL (3.2-4.8); Calcium 8.3 mg/dL (8.7-10.4); Chloride 109 mmol/L (98-107); Total Protein 4.8 g/dL (5.7-8.2)
[2024-11-14 06:58] LABS: Anion Gap 8 (5-15); Anisocytosis Slight; Carbon Dioxide 25 mmol/L (20-31); Total Cells Counted 100.0 (100)
--- NOTE | 2024-11-14 19:01 | DVHPN2 ---
Subjective Seen in bed and doing well Reviewed: H&P, Labs Changes from previous H/P or p: No Changes Eyes: No Pain, No Vision change, No Conjunctivae inflammation, No Eyelid inflammation, No Other, No Redness ENT: No Ear pain, No Ear discharge, No Nose pain, No Nose discharge, No Nose congestion, No Mouth pain, No Mouth swelling, No Throat pain, No Throat swelling, No Other Cardiovascular: No Chest Pain, No Palpitations, No Orthopnea, No Paroxysmal Noc. Dyspnea, No Edema, No Lt Headedness, No Other Respiratory: No Cough, No Dry, No Shortness of breath, No SOB with excertion, No Wheezing, No Hemoptysis, No Pleuritic Pain, No Sputum, No Other Gastrointestinal: No Nausea, No Vomiting, No Abdominal Pain, No Diarrhea, No Constipation, No Melena, No Hematochezia, No Other Genitourinary: No Dysuria, No Frequency, No Incontinence, No Hematuria, No Retention, No Other Musculoskeletal: No other, No neck pain; shoulder pain (right); No arm pain, No back pain, No hand pain; leg pain (right hip); No foot pain Skin: No Rash, No Lesions, No Jaundice, No Bruising, No Other Objective Vitals Vital Signs Date Time Temp Pulse Resp B/P (MAP) Pulse Ox O2 Delivery O2 Flow Rate FiO2 11/14/24 17:00 97.9 77 19 103/68 (80) 92 97.9 11/14/24 08:00 Room Air* 0 21 Intake/Output Intake and Output 11/14/24 07:00 Intake Total 925 ml Output Total 1250 ml Balance -325 ml Intake Oral 925 ml Output Urine Total 1250 ml General Appearance: Alert, Oriented X3 HEENT: Atraumatic Lungs: Clear to auscultation Cardiovascular: Regular rate, Normal S1, Normal S2 Abdomen: Normal bowel sounds Medications Current Medications Medications Dose Ordered Sig/[place] Route Start Time Stop Time Status Last Admin Dose Admin Acetaminophen/ Hydrocodone Bitart 1 tab Q4HP PRN PO 11/13/24 08:00 11/13/24 19:38 1 TAB Ondansetron HCl 4 mg Q4HP PRN IV 11/13/24 08:00 Docusate Sodium 100 mg BIDPRN PRN PO 11/13/24 08:00 Acetaminophen 650 mg Q6HP PRN PO 11/13/24 08:00 Diphenhydramine HCl 50 mg Q6HP PRN IV 11/13/24 17:30 11/14/24 15:23 50 MG Bumetanide 1 mg BIDD PO 11/14/24 06:00 11/14/24 09:03 1 MG Prednisone 5 mg DAILY PO 11/14/24 10:00 11/14/24 09:03 5 MG Patient Own Medication 1 tab QWEEKLY PO 11/14/24 06:00 Amlodipine Besylate 10 mg DAILY PO 11/14/24 10:00 Hydroxyzine Pamoate 25 mg HS PO 11/13/24 22:00 11/13/24 21:21 25 MG Laboratory Results Laboratory Tests 11/14/24 05:29 Chemistry Test 11/14/24 05:29 Albumin 2.9 g/dL (3.2-4.8) L Calcium Level 8.3 mg/dL (8.7-10.4) L Total Protein 4.8 g/dL (5.7-8.2) L LFT Test 11/14/24 05:29 Alanine Aminotransferase (ALT) 9 U/L (7-40) Alkaline Phosphatase 75 U/L (46-116) Aspartate Amino Transferase (AST) 18 U/L (13-40) Total Bilirubin 0.4 mg/dL (0.2-1.0) Assessment/Plan Assessment/Plan Pubic ramus fracture, Fall with injury, Hypertension, DDD, Pending ortho consult PT eval Pain control Plan discussed with: Patient My Orders Orders - HUMBERTO ALCOCER MD Procedure Category Date Status Time Pt Request For Service PT 11/14/24 Logged 18:38 Date of Service: Nov 14, 2024 Billing Provider: HUMBERTO ALCOCER MD Common Visit Codes: [id number] INP/OBS CARE(HIGH) HUMBERTO ALCOCER MD Nov 14, 2024 19:01
--- NOTE | 2024-11-14 19:32 | DVHINCON2 ---
Consult Note Consult Consult Note ORTHOPEDIC CONSULT NOTE Requesting Service: Hospitalist Team Reason for Consult: Evaluation of right hip pain following a ground-level fall --- HISTORY OF PRESENT ILLNESS The patient is an 84-year-old female admitted following a ground-level fall, evaluated by the hospitalist service for right hip pain. A CT scan of the pelvis revealed a non-displaced fracture of the right medial superior pubic ramus. The patient denies left hip pain despite a remote history of intramedullary nailing of the left hip. However, she now reports deep right hip pain, particularly with movement and weight-bearing, but no groin pain. She also reports chronic right shoulder pain without recent trauma or worsening since the fall. Uses wheel chair vs walker in daily life for ambulation per pt. --- PAST MEDICAL/SURGICAL HISTORY HTN well controlled Intramedullary nail to left hip (asymptomatic currently) Jun 2024 Chronic right shoulder pain No history of anticoagulant-related bleeding --- PHYSICAL EXAM General: Alert, cooperative, mild distress due to hip pain Right Hip: Deep tenderness with palpation Pain with passive ROM and weight-bearing No groin tenderness No visible deformity or leg-length discrepancy No ecchymosis or open wounds Grossly neurovascularly intact Right Shoulder: Forward flexion: 150, abduction: 150 mild painful, chronic, no new pain per patient Pain with overhead activity Positive Neer and Barron impingement tests Positive Domingo OBriens test for pain and mild weakness Weakness with resisted forward elevation No AC joint or clavicle tenderness Gross neurovascular status intact --- IMAGING REVIEW Pelvic CT: Non-displaced right medial superior pubic ramus fracture Right Shoulder X-ray: No acute bony abnormality, high riding humeral head, GH and AC OA --- ASSESSMENT 1. Non-displaced right medial superior pubic ramus fracture, with associated deep right hip pain, Pain with WB 2. History of left hip IM nail, currently asymptomatic 3. Chronic right shoulder pain with impingement and possible rotator cuff/labral/OA pathology --- PLAN Right Hip: Non-operative management Weight-bearing as tolerated (WBAT) with walker Pain management per hospitalist (acetaminophen, consider short-course NSAID if no contraindication) Initiate PT for safe ambulation, balance, and fall prevention DVT prophylaxis per hospitalist protocol Follow-up in orthopedic clinic in 2 weeks with repeat pelvic X-ray Continue WBAT with walker for 6 weeks unless pain worsens Right Shoulder: Continue conservative management for chronic pain If symptoms worsen or affect function, outpatient orthopedic follow-up with possible MRI to assess for rotator cuff tear or labral injury Return Precautions: Worsening pain, inability to ambulate, fever, or new neurologic deficits MEDICINE/HOSPITALIST TEAM PLEASE NOTE: RIGHT HIP AND LEFT HIP XRAY ORDERED TODAY, RIGHT HIP XRAY ORDERED FOR FUTURE FOLLOWUP XRAY COMPARISONS AND LEFT HIP XRAY ORDERED TO RULE OUT ANY WARE RDWARE(CMN) OR FRACTURE TO LEFT HIP CONCERNS, MEDICINE TEAM TO DISCHARGE PATIENT ONLY WHEN RIGHT HIP AND LEFT HIP XRAYS ARE COMPLATED AND REVIEWED, IF ANY FRACTURE OTHER THAN ABOVE MENTION RIGHT PUBIC RAMI NON DISPLACED FRACTURE IS NOTED PLEASE CONTACT ORTHOPEDICS AND DO NOT DISCHARGE PATIENT. --- All questions answered. Patient and bedside Nurse in agreement with plan Above plan was made with recommendation of oncall Ortho Surgeon Dr. Haile Plan discussed with: Patient, Other (BEDSIDE NURSE) Visit Coding Surgery Date of Service if different f: Nov 14, 2024 Billing Provider: KARSON CALABRESE Surgery Visit Codes: 86255 - INP CONSULT <55 MIN KARSON CALABRESE Nov 14, 2024 19:32
[2024-11-15] VITALS (7 sets, daily range): BP systolic 113–123; BP diastolic 69–80; PULSE 78–89; RESP 16–17; TEMP 97.6–98.9; O2SAT 91–94
--- NOTE | 2024-11-15 02:05 | DVH ---
CLINICAL INDICATION: status post fall TECHNIQUE: XY R HIP COMPLETE XRAY Comparison: None FINDINGS/IMPRESSION: : There is no evidence of acute fracture or dislocation. Mild osteoarthritic degenerative change of the right hip includes joint space narrowing, marginal ost eophytosis and acetabular and femoral subchondral sclerosis. Soft tissues are unremarkable.
--- NOTE | 2024-11-15 02:05 | DVH ---
CLINICAL INDICATION: reaasess hardware TECHNIQUE: XY L HIP COMPLETE XRAY Comparison: None FINDINGS/IMPRESSION: : There is no evidence of acute fracture or dislocation. Hardware within the proximal left femur and femoral neck without evidence of complication. Soft tissues are unremarkable.
--- NOTE | 2024-11-15 20:37 | DVHDS2 ---
Discharge Summary Date of Admission Nov 13, 2024 at 07:53 Date of Discharge: Nov 15, 2024 Labs/Diagnostic Data: Laboratory Results Test 11/14/24 05:29 White Blood Count 11.0 10^3/uL (4.4-10.8) Red Blood Count 3.00 10^6/uL (4.0-5.20) Hemoglobin 9.6 g/dL (12.2-16.2) Hematocrit 28.3 % (36.0-46.0) Mean Corpuscular Volume 94.6 fL (80.0-100.0) Mean Corpuscular Hemoglobin 31.9 pg (28.0-32.0) Mean Corpuscular Hemoglobin Concent 33.8 g/dL (32.0-36.0) Red Cell Distribution Width 23.9 % (11.8-14.3) Platelet Count 467 10^3/uL (140-450) Mean Platelet Volume 7.3 fL (6.9-10.8) Neutrophils (%) (Auto) % (37.0-80.0) Lymphocytes (%) (Auto) % (10.0-50.0) Monocytes (%) (Auto) % (0.0-12.0) Basophils (%) (Auto) % (0.0-2.0) Neutrophils # (Auto) 10 ^3/uL (1.6-8.6) Lymphocytes # (Auto) 10 ^3/uL (0.4-5.4) Monocytes # (Auto) 10 ^3/uL (0-1.3) Differential Total Cells Counted 100.0 (100) Neutrophils % (Manual) 43 (37.0-80.0) Band Neutrophils % (Manual) 0 Lymphocytes % (Manual) 23 (10.0-50.0) Monocytes % (Manual) 2 (0-12) Eosinophils % (Manual) 28 (0-7) Basophils % (Manual) 0 (0.0-2.0) Metamyelocytes % (manual) 0 Myelocytes % (Manual) 0 Promyelocytes % (Manual) 0 Blast Cells % (Manual) 4 Reactive Lymphocytes 0 Platelet Estimate Increased Anisocytosis (manual) Slight Sodium Level 142 mmol/L (136-145) Potassium Level 4.0 mmol/L (3.5-5.1) Chloride Level 109 mmol/L (98-107) Carbon Dioxide Level 25 mmol/L (20-31) Anion Gap 8 (5-15) Blood Urea Nitrogen 17 mg/dL (9-23) Creatinine 0.86 mg/dL (0.550-1.02) Glomerular Filtration Rate Calc 66 mL/min (>90) BUN/Creatinine Ratio 19.8 (10.0-20.0) Serum Glucose 84 mg/dL (74-106) Calcium Level 8.3 mg/dL (8.7-10.4) Total Bilirubin 0.4 mg/dL (0.2-1.0) Aspartate Amino Transferase (AST) 18 U/L (13-40) Alanine Aminotransferase (ALT) 9 U/L (7-40) Alkaline Phosphatase 75 U/L (46-116) Total Protein 4.8 g/dL (5.7-8.2) Albumin 2.9 g/dL (3.2-4.8) Other Laboratory Tests 11/14/24 05:29 Brief Hx & Hospital Course: 84-year-old female with past medical history of hypertension, and DJD who came to the hospital S/P fall. Patient ambulates with a walker. She states she was walking and her slipper slipped, she lost her footing and fell back. She complains of shoulder and hip pain Sustained Acute to subacute nondisplaced fracture of the medial right superior pubic ramus. Seen by ortho Follow-up in orthopedic clinic in 2 weeks with repeat pelvic X-ray Continue WBAT with walker for 6 weeks unless pain worsens Condition at Discharge: Good Final Diagnosis/Problems List PUBIC RAMI FRACTURE Discharge Disposition: Home Discharge Instruct/Medications Diet: Regular Activity: No Restrictions, As Tolerated Follow Up/Referral: PCP and ortho in 2 weeks Medications: same home medications Scheduled Alendronate Sodium (Alendronate Sodium), 1 TAB PO QWEEKLY, (Reported) Amlodipine Besylate (Amlodipine Besylate), 1 TAB PO DAILY, (Reported) Bumetanide (Bumetanide), 1 TAB PO BID, (Reported) Hydroxyzine Hcl (Hydroxyzine Hcl), 1 TAB PO HS, (Reported) Prednisone (Prednisone), 1 TAB PO DAILY, (Reported) Scheduled PRN Meloxicam (Meloxicam), 7.5 MG PO DAILY PRN Discharge Statement: "Patient was advised to return to the ER or call 911 if any headaches, dizziness, shortness of breath, chest pain, abdominal pain, bleeding, fevers, or worsening of medical condition. Patient was counseled about treatment plan, medications, possible side effects, patientverbalized understanding. All questions were answered to the best of my ability. This discharge took greater then 30 minutes in planning, reviewing documentation, counseling the patient, and discussing with other team members." DME: Diagnosis: pubic rami fracture ASSESSMENT ASSESSMENT Assessment PUBIC RAMI FRACTURE Date of Service: Nov 15, 2024 Billing Provider: HUMBERTO ALCOCER MD Common Visit Codes: [id number] DISCH DAY >30min HUMBERTO ALCOCER MD Nov 15, 2024 20:37
== END 2024-11-15 19:45 | disposition home or self-care (01) | DRG 536 ==
LOC: EDBD 00:01 → ER 00:01 → OVERFLOW 07:53 → CENTRAL 14:39
PROVIDERS: ADMIT Hospitalist; ATTEND Hospitalist
DX: S32.591A Other specified fracture of right pubis, initial encounter for closed fracture (principal); I10 Essential (primary) hypertension; G89.29 Other chronic pain; M25.472 Effusion, left ankle; M25.471 Effusion, right ankle; M25.511 Pain in right shoulder; Z96.642 Presence of left artificial hip joint; R29.6 Repeated falls; Z90.710 Acquired absence of both cervix and uterus; Z88.8 Allergy status to other drugs, medicaments and biological substances; W01.0XXA Fall on same level from slipping, tripping and stumbling without subsequent striking against object, initial encounter; Y93.89 Activity, other specified; Y99.8 Other external cause status; Y92.89 Other specified places as the place of occurrence of the external cause
CPT/HCPCS: 36415; 73030; 73502; 73700; 80048; 80053; 85007; 85027; 96374; 96375; 97110; 97116; 97163; 97530; 99291; G0378

== ENCOUNTER 2024-12-03 22:37 | Inpatient (IN) | payer OTHER ==
[~2024-12-03] VITALS: Ht 160 cm; Wt 64.0 kg
[~2024-12-03 22:37] MED LIST changes: +ALEN70TA74 PO; +AMLO1TAB23 PO; +BUME1TAB3 PO; +HYDR-3682 PO; +PRE5T PO
--- NOTE | 2024-12-03 23:38 | ED.PDOC ---
History of Present Illness HPI Comments 84 y/o F, with a history of DDD and HTN, is BIBA from private residence for c/c of back pain s/p mechanical fall and injury. Patient reports losing her balance and falling backwards from ground level when attempting to change a light fixture switch. No lost of consciousness or additional injuries endorsed. P atient states on being unable to assist herself up from the floor following fall then. Denies any weakness, numbness, tingling, headache, or further associated symptoms. Chief Complaint: Fall Injury Time Seen by MD: 23:30 Primary Care Provider: UNKNOWN Reviewed Notes: Nurses Notes, Medications, Allergies Allergies: Coded Allergies: Memantine (Verified Allergy, Severe, 08/20/23) Home Meds Active Scripts Meloxicam (Meloxicam) 7.5 Mg Tab, 7.5 MG PO DAILY PRN, #30 TAB Prov:TATE PATEL MECHANICAL METER TESTER 08/20/23 Reported Medications Amlodipine Besylate (Amlodipine Besylate) 10 Mg Tab, 1 TAB PO DAILY 11/13/24 Hydroxyzine Hcl (Hydroxyzine Hcl) 25 Mg Tab, 1 TAB PO HS 11/13/24 Bumetanide (Bumetanide) 1 Mg Tab, 1 TAB PO BID 11/13/24 Alendronate Sodium (Alendronate Sodium) 70 Mg Tab, 1 TAB PO QWEEKLY 11/13/24 Prednisone (Prednisone) 5 Mg Tab, 1 TAB PO DAILY 11/13/24 Information Source: Patient, Emergency Med Personnel Mode of Arrival: EMS Severity: Moderate Timing: Hours Duration: Since onset Prehospital treatment: 12 Lead EKG, Accucheck, Chemical Manager, Pain Meds (IV), Other (IV access) Past Medical History PAST MEDICAL HISTORY: HTN Past Medical History (Other): DDD Surgical History: Hysterectomy ELECTROMECHANICAL TECHNOLOGIST History: Denies all ELECTROMECHANICAL TECHNOLOGIST Hx Family History Family History: Reviewed,noncontributory to illness Social History Smoker: Non-Smoker Alcohol: Denies ETOH Use Drugs: Denies Drug Use Lives In: Home All Other Systems: Reviewed and Negative (Comprehensive systems review obtained and negative except for what is stated in the HPI.) Physical Exam General Appearance: No Apparent Distress, Normal HEENT: Normal ENT Inspection, Pharynx Normal, TMs Normal Neck: Full Range of Motion, Non-Tender, Normal, Normal Inspection Respiratory: Chest Non-Tender, Lungs Clear, No Accessory Muscle Use, No Respiratory Distress, Normal Breath Sounds Cardiovascular: No Edema, No JVD, No Murmur, No Gallop, Normal Peripheral Pulses, Regular Rate/Rhythm Breast Exam: Deferred Gastrointestinal: No Organomegaly, Non Tender, No Pulsatile Mass, Normal Bowel Sounds, Soft Genitalia: Deferred Pelvic: Deferred Rectal: Deferred Extremities: No calf tenderness, Normal capillary refill, Normal inspection, Normal range of motion, Non-tender, No pedal edema Musculoskeletal : Extremity Location: Back (lumbar region ) Apperance: Normal, Tenderness Neurologic: Alert, server programmer II-XII nml as Tested, No Motor Deficits, Normal Affect, Normal Mood, No Sensory Deficits Cerebellar Function: Normal Reflexes: Normal Skin: Dry, Normal Color, Warm Lymphatic: No Adenopathy Was a procedure done? Was a procedure done?: No Differential Dx Considerations may include: musculoskeletal pain, fractures, dislocations, contusions, DDD, among others X-Ray, Labs, Meds, VS Vital Signs Date Time Temp Pulse Resp B/P (MAP) Pulse Ox O2 Delivery O2 Flow Rate FiO2 12/03/24 22:44 98.6 73 20 115/71 (86) 95 98.6 [place] [address] Ph: [phone] DIAGNOSTIC IMAGING Diagnostic Imaging Report : [id number] Signed PATIENT: KERRY BARRON ACCT: [id number] UNIT: [id number] : 1940 LOC: ER ROOM / BED: / AGE / SEX: 84 / F ADM STATUS: REG ER SERVICE 2330 ORDERING PHYSICIAN: JAZ DOUGLAS MD PROCEDURE(s): PELVS - PELVIS AP REASON: fall ORDER NUMBER(s): [id number], ACCESSION NUMBER(s): [id number] CLINICAL INDICATION: fall TECHNIQUE: XY PELVIS AP Comparison: XY PELVIS AP on DOS: 10/12/24, CT PELVIS WO CONTRAST on DOS: 08/20/23 FINDINGS/IMPRESSION: : Diffuse generalized osseous demineralization. Hardware within the proximal left femur status post ORIF without evidence of complication. There is no evidence of acute fracture or dislocation. Soft tissues are unremarkable. ATED BY: JEFF BARRERA MD DICTATED DATE/TIME: 12/04/2429 SIGNED BY: JEFF BARRERA MD SIGNED DATE/TIME: 12/04/2429 CC: [place] [address] Ph: [phone] DIAGNOSTIC IMAGING Diagnostic Imaging Report : [id number] Signed PATIENT: KERRY BARRON ACCT: [id number] UNIT: [id number] : 1940 LOC: ER ROOM / BED: / AGE / SEX: 84 / F ADM STATUS: REG ER SERVICE 29 ORDERING PHYSICIAN: JAZ DOUGLAS MD PROCEDURE(s): LUMB2 - LUMBAR SPINE 3 VIEW REASON: fall ORDER NUMBER(s): [id number], ACCESSION NUMBER(s): [id number] INDICATION: fall COMPARISON: XY LUMBAR SPINE 3 VIEW on DOS: 10/12/24 TECHNIQUE: 2 views of the lumbar spine were obtained. FINDINGS: Diffuse generalized osseous demineralization. Age-indeterminate compression fracture deformities of the L1 and L3 vertebral bodies have resulted in less than 25% height loss at each level. The lumbar vertebral alignment is normal. The intervertebral disc spaces are well-maintained. No significant facet arthropathy is noted. No aggressive osseous lesions. The paravertebral soft tissues are grossly unremarkable. IMPRESSION: 1. Age-indeterminate compression fractures of the L1 and L3 vertebral bodies. 2. Diffuse generalized osseous demineralization. ATED BY: JEFF BARRERA MD DICTATED DATE/TIME: 12/04/2455 SIGNED BY: JEFF BARRERA MD SIGNED DATE/TIME: 12/04/2455 CC: [address] [address] Ph: [phone] DIAGNOSTIC IMAGING Diagnostic Imaging Report : [id number] Signed PATIENT: KERRY BARRON ACCT: [id number] UNIT: [id number] : 1940 LOC: ER ROOM / BED: / AGE / SEX: 84 / F ADM STATUS: REG ER SERVICE 29 ORDERING PHYSICIAN: JAZ DOUGLAS MD PROCEDURE(s): CXRP - CHEST PORTABLE REASON: fall ORDER NUMBER(s): [id number], ACCESSION NUMBER(s): [id number] CHEST RADIOGRAPH Indication: fall Technique: Single frontal view of the chest was obtained COMPARISON: None FINDINGS: Lines and Tubes: None Lungs: Clear Pleura: No effusion. No pneumothorax. Cardiomediastinal contours: Cardiomegaly. Bones: Unremarkable. Bilateral axillary surgical clips. IMPRESSION: 1. Cardiomegaly. No acute disease. ATED BY: JEFF BARRERA MD DICTATED DATE/TIME: 12/04/2423 SIGNED BY: JEFF BARRERA MD SIGNED DATE/TIME: 12/04/2423 CC: Time of 1ST Reevaluation: 00:00 Reevaluation 1ST: Unchanged Patient Education/Counseling: Diagnosis, Treatment Family Education/Counseling: No Family Present Additional Information Previous visits reviewed: November 13, 2024 encounter for pubic ramus fracture The following tests were ordered, and results were reviewed by me: chest, lumbar, and pelvic X-ray Additional Information was gathered from interviewing the following independent historians: EMS I reviewed and agreed with the following test results read by other providers: chest, lumbar, and pelvic X-ray I discussed treatment and results with medical personnel and: patient SEPSIS Sepsis Screen Date sepsis recognized/suspect: Dec 03, 2024 Time Sepsis recognized/suspect: 2236 Recent Procedure: No On Antibiotic Therapy: No Respiratory Rate >20: No Heart Rate >90: No Temp<36 C (96.8 F) or >38.3 C: No SBP <90 or MAP <65 mmHG: No New Acute Mental Status Change: No Is the patient on CPAP, BIPAP,: No Physician Orders Lumbar Spine 3 View (12/03/24 23:30) Chest Portable (12/03/24 23:30) Pelvis Ap (12/03/24 23:30) Basic Metabolic Panel (12/04/24 01:20) Complete Blood Count (12/04/24 01:20) Ondansetron Hcl (Zofran) (12/04/24 01:30) Morphine Sulfate Injection (12/04/24 01:30) Vital Signs Date Time Temp Pulse Resp B/P (MAP) Pulse Ox O2 Delivery O2 Flow Rate FiO2 12/03/24 22:44 98.6 73 20 115/71 (86) 95 98.6 Departure 1 Departure Time of Disposition: 01:24 (Patient with a fallen L1 and L3 fracture. Patient with intractable pain and difficulty ambulating. We will admit patient for further workup and expert consultation) Impression: Primary Impression: L1 vertebral fracture Qualified Codes: S32.018A - Other fracture of first lumbar vertebra, initial encounter for closed fracture Additional Impressions: L3 vertebral fracture Qualified Codes: S32.038A - Other fracture of third lumbar vertebra, initial encounter for closed fracture Fall Qualified Codes: W19.XXXA - Unspecified fall, initial encounter Difficulty in walking Disposition: ADMITTED INPATIENT Admit to: Med Surg Condition: Serious Critical Care Note Critical Care Time?: No Stability Stability form required: No Heart Score Heart Score: Heart Score Response (Comments) Value History N/A 0 EKG N/A 0 Age N/A 0 Risk Factors N/A 0 Troponin N/A 0 Total 0 I personally scribed for JAZ DOUGLAS MD ([email or web address]) on 12/03/24 at 23:38. Electronically submitted by Primitivo Bell ([email or web address]). I personally scribed for JAZ DOUGLAS MD ([email or web address]) on 12/04/24 at 01:22. Electronically submitted by Primitivo Bell ([email or web address]). JAZ DOUGLAS MD Dec 03, 2024 23:38
--- NOTE | 2024-12-04 00:27 | DVH ---
CHEST RADIOGRAPH Indication: fall Technique: Single frontal view of the chest was obtained COMPARISON: None FINDINGS: Lines and Tubes: None Lungs: Clear Pleura: No effusion. No pneumothorax. Cardiomediastinal contours: Cardiomegaly. Bones: Unremarkable. Bilateral axillary surgical clips. IMPRESSION: 1. Cardiomegaly. No acute disease.
--- NOTE | 2024-12-04 00:32 | DVH ---
CLINICAL INDICATION: fall TECHNIQUE: XY PELVIS AP Comparison: XY PELVIS AP on DOS: 10/12/24, CT PELVIS WO CONTRAST on DOS: 08/20/23 FINDINGS/IMPRESSION: : Diffuse generalized osseous demineralization. Hardware within the proximal left femur status post ORIF without evidence of complication. There is no evidence of acute fracture or dislocation. Soft tissues are unremarkable.
--- NOTE | 2024-12-04 00:59 | DVH ---
INDICATION: fall COMPARISON: XY LUMBAR SPINE 3 VIEW on DOS: 10/12/24 TECHNIQUE: 2 views of the lumbar spine were obtained. FINDINGS: Diffuse generalized osseous demineralization. Age-indeterminate compression fracture deformities of the L1 and L3 vertebral bodies have resulted in less than 25% height loss at each level. The lumbar vertebral alignment is normal. The intervertebral disc spaces are well-maintained. No significant facet arthropathy is noted. No aggressive osseous lesions. The paravertebral soft tissues are grossly unremarkable. IMPRESSION: 1. Age-indeterminate compression fractures of the L1 and L3 vertebral bodies. 2. Diffuse generalized osseous demineralization.
[2024-12-04 02:11] LABS: Potassium 4.7 mmol/L (3.5-5.1); Sodium 141 mmol/L (136-145)
[2024-12-04 02:12] LABS: Anion Gap 8 (5-15); Calcium 8.8 mg/dL (8.7-10.4); Carbon Dioxide 24 mmol/L (20-31)
[2024-12-04 02:17] LABS: BUN/Creatinine Ratio 23.2 (10.0-20.0); Glucose 90 mg/dL (74-106)
[2024-12-04 02:18] LABS: Blood Urea Nitrogen 23 mg/dL (9-23); Chloride 109 mmol/L (98-107)
[2024-12-04 02:46] LABS: Hematocrit 31.7 % (36.0-46.0); Hemoglobin 10.4 g/dL (12.2-16.2); Mean Corpuscular Hemoglobin 31.0 pg (28.0-32.0); Mean Corpuscular Volume 94.7 fL (80.0-100.0)
[2024-12-04 03:07] LABS: Total Cells Counted 100.0 (100)
[2024-12-04 03:09] LABS: Anisocytosis Slight
[2024-12-04] MEDS ORDERED: ACETAMINOPHEN 325 MG TAB PO PRN (04:15)
--- NOTE | 2024-12-04 04:16 | DVHHP2 ---
History of Present Illness History of Present Illness Patient is 86 years old female with a past medical history of hypertension, degenerative joint disease, recurrent fall was brought in by EMS due to status post fall. As per patient she was trying to reach out to a electric switch and she fell backward and hurt her back, denied hitting her head. Patient reported back pain is sharp, 9/10, constant, aggravated with movement, some relief with pain medication. Patient also reported her both legs are swollen for a while. Patient denied any chest pain, shortness of breath, fever, cough, diarrhea, d ysarthria or change in vision. Initial lab workup revealed leukocytosis with WBC 14.1, hemoglobin 10.4, neutrophils 29%, platelet 628, eosinophil 29. Chest x-ray cardiomegaly, x-ray lumbar [id number] compression fractures of the L1 and L3 vertebral bodies.Diffuse generalized osseous demineralization. X-ray pelvis- Diffuse generalized osseous demineralization. Hardware within the proximal left femur status post ORIF without evidence of complication. There is no evidence of acute fracture or dislocation. Past Medical History Hypertension, degenerative joint disease Past Surgical History Left hip ORIF Past Social History Denies Smoking/alcoholism/drug abuse Review of Systems Review of Systems Allergy- memantine Cardiovascular- deny acute chest pain or shortness of breath or cough or palpitation Respiratory denies cough or short of breath or wheezing Gastrointestinal- denies any rectal bleeding, nausea or vomiting Musculoskeletal-denies acute joint swelling or tenderness or redness Neurological- denies acute dysarthria, dysphagia, change in vision Psychiatry- denies depression or SI or HI Skin- denies acute rash or purpura Allergies: Coded Allergies: Memantine (Verified Allergy, Severe, 08/20/23) Exam Vital Signs Vital Signs Date Time Temp Pulse Resp B/P (MAP) Pulse Ox O2 Delivery O2 Flow Rate FiO2 12/04/24 01:55 98.4 68 16 127/75 (92) 95 98.4 Exam General examination- awake, alert, oriented HEENT- PEERLA, no acute nasal discharge Cardiovascular- S1-S2 audible, rate and rhythm regular, no murmur Respiratory- CTAB, no wheeze or rhonchi Gastrointestinal-nontender, bowel sound+. Nondistended Musculoskeletal-no acute joint swelling or tenderness or redness Lower extremity- bilateral leg edema++ Neurological- cranial nerves intact, no acute dysarthria or dysphagia Psychiatry- denies depression or SI or HI Skin- no acute rash or purpura Labs/Xrays Labs Test 12/04/24 01:42 Range/Units White Blood Count 14.1 H 4.4-10.8 10^3/uL Red Blood Count 3.35 L 4.0-5.20 10^6/uL Hemoglobin 10.4 L 12.2-16.2 g/dL Hematocrit 31.7 L 36.0-46.0 % Mean Corpuscular Volume 94.7 80.0-100.0 fL Mean Corpuscular Hemoglobin 31.0 28.0-32.0 pg Mean Corpuscular Hemoglobin Concent 32.7 32.0-36.0 g/dL Red Cell Distribution Width 23.5 H 11.8-14.3 % Platelet Count 628 H 140-450 10^3/uL Mean Platelet Volume 7.5 6.9-10.8 fL Neutrophils (%) (Auto) 37.0-80.0 % Lymphocytes (%) (Auto) 10.0-50.0 % Monocytes (%) (Auto) 0.0-12.0 % Basophils (%) (Auto) 0.0-2.0 % Neutrophils # (Auto) 1.6-8.6 10 ^3/uL Lymphocytes # (Auto) 0.4-5.4 10 ^3/uL Monocytes # (Auto) 0-1.3 10 ^3/uL Differential Total Cells Counted 100.0 100 Neutrophils % (Manual) 29 L 37.0-80.0 Band Neutrophils % (Manual) 0 Lymphocytes % (Manual) 38 10.0-50.0 Monocytes % (Manual) 4 0-12 Eosinophils % (Manual) 29 H 0-7 Basophils % (Manual) 0 0.0-2.0 Metamyelocytes % (manual) 0 Myelocytes % (Manual) 0 Promyelocytes % (Manual) 0 Blast Cells % (Manual) 0 Reactive Lymphocytes 0 Platelet Estimate Increased Anisocytosis (manual) Slight Sodium Level 141 136-145 mmol/L Potassium Level 4.7 3.5-5.1 mmol/L Chloride Level 109 H 98-107 mmol/L Carbon Dioxide Level 24 20-31 mmol/L Anion Gap 8 5-15 Blood Urea Nitrogen 23 9-23 mg/dL Creatinine 0.99 0.550-1.02 mg/dL Glomerular Filtration Rate Calc 56 >90 mL/min BUN/Creatinine Ratio 23.2 H 10.0-20.0 Serum Glucose 90 74-106 mg/dL Calcium Level 8.8 8.7-10.4 mg/dL SEPSIS Sepsis Screen Date sepsis recognized/suspect: Dec 03, 2024 Time Sepsis recognized/suspect: 2236 Recent Procedure: No On Antibiotic Therapy: No Respiratory Rate >20: No Heart Rate >90: No Temp<36 C (96.8 F) or >38.3 C: No SBP <90 or MAP <65 mmHG: No New Acute Mental Status Change: No Is the patient on CPAP, BIPAP,: No Physician Orders Lumbar Spine 3 View (12/03/24 23:30) Chest Portable (12/03/24 23:30) Pelvis Ap (12/03/24 23:30) Admit (12/04/24 04:12) Code Status (12/04/24 04:12) Enoxaparin Sodium (Lovenox) (12/04/24 10:00) Complete Blood Count (12/05/24 04:00) Comprehensive Metabolic Panel (12/05/24 04:00) Cardiac Diet-2gna,Lofat,Lochol (12/04/24 Breakfast) Acetaminophen Tablet (Tylenol Tablet) (12/04/24 04:15) Vital Signs Date Time Temp Pulse Resp B/P (MAP) Pulse Ox O2 Delivery O2 Flow Rate FiO2 12/04/24 01:55 98.4 68 16 127/75 (92) 95 98.4 12/03/24 22:44 98.6 73 20 115/71 (86) 95 98.6 Laboratory Tests Test 12/04/24 01:42 White Blood Count 14.1 10^3/uL (4.4-10.8) H Assessment/Plan Assessment/Plan # Intractable low back pain -status post fall, rule out fracture/musculoskeletal pain # fall # history of recurrent fall -x-ray lumbar [id number]-Nud-qanzohrtkqmwp compression fractures of the L1 and L3 vertebral bodies. Diffuse generalized osseous demineralization -. X-ray pelvis- Diffuse generalized osseous demineralization. Hardware within the proximal left femur status post ORIF without evidence of complication. There is no evidence of acute fracture or dislocation. -continue pain medication as prescribed # bilateral leg edema- ? Amlodipine induced, rule out DVT -Doppler study of the lower extremity- negative for DVT -discontinued amlodipine # leukocytosis under evaluation -pending urinalysis to rule out UTI # hypertension -discontinued amlodipine -continue losartan 25 mg p.o. daily -monitor blood pressure Diet-cardiac diet Goals of care, Code status full code ; discussed with >15 minutes PUD prophylaxis: Pantoprazole DVT prophylaxis: Lovenox Plan discussed with Dr. Blackwell , nursing staff, Total time spent on patient evaluation, chart review, assessment and plan, discussion discussion >35 minutes Plan discussed with: Patient, Other (RN) My Orders Orders - TEJINDER LOW Procedure Category Date Status Time Admit ADMIT 12/04/24 Verified 04:12 Code Status CODE 12/04/24 Verified 04:12 Enoxaparin Sodium PHA 12/04/24 Verified (Lovenox) 10:00 Complete Blood Count LAB 12/05/24 Verified 04:00 Comprehensive LAB 12/05/24 Verified Metabolic Panel 04:00 Cardiac DIET 12/04/24 Verified Diet-2gna,Lofat,Lochol Breakfast Acetaminophen Tablet PHA 12/04/24 Verified (Tylenol Tablet) 04:15 Date of Service: Dec 04, 2024 Billing Provider: RYAN BLACKWELL MD Common Visit Codes: [id number] INP/OBS CARE (HIGH) TEJINDER LOW RESIDENT Dec 04, 2024 04:15
[2024-12-04] MEDS ORDERED: ALENDRONATE SODIUM 70 MG PO SCH (04:30)
[2024-12-04] MEDS: ONDANSETRON HCL 4 MG/2 ML VIAL IV ONE (04:52)
[2024-12-04] MEDS: MORPHINE SULFATE 4 MG/ML SYR/VIAL IV ONE (04:53)
[2024-12-04 05:16] VITALS: RESP 18; O2SAT 97
[2024-12-04 05:38] LABS: Alanine Aminotransferase 15.0 U/L (7-40); Magnesium 2.2 mg/dL (1.6-2.6); Total Protein 6.2 g/dL (5.7-8.2)
[2024-12-04 05:39] LABS: Albumin 4.0 g/dL (3.2-4.8); Alkaline Phosphatase 117.0 U/L (46-116); Bilirubin, Direct 0.1 mg/dL (<0.3); Bilirubin, Total 0.4 mg/dL (0.2-1.0)
[2024-12-04] MEDS: PANTOPRAZOLE 40 MG TAB PO ONE (06:28)
--- NOTE | 2024-12-04 07:52 | DVH ---
Bilateral lower extremity venous duplex Clinical History: BILATERAL LEG SWELLING Comparison: None Technique: Duplex Doppler evaluation of the deep venous systems of both lower extremities from the common femora l veins to the popliteal veins including color Doppler and spectral/pulsed waveform analysis was perf ormed. Findings: RIGHT SIDE: The common femoral vein demonstrates appropriate compressibility and waveform variability. There is compressibility/patency of the great saphenous vein at the proximal thigh. The femoral vein demonstrates appropriate compressibility and waveform variability. The deep femoral vein demonstrates appropriate compressibility and waveform variability. The popliteal vein demonstrates appropriate compressibility and waveform variability. There is normal compressibility at the tibioperoneal trunk. LEFT SIDE: The common femoral vein demonstrates appropriate compressibility and waveform variability. There is compressibility/patency of the great saphenous vein at the proximal thigh. The femoral vein demonstrates appropriate compressibility and waveform variability. The deep femoral vein demonstrates appropriate compressibility and waveform variability. The popliteal vein demonstrates appropriate compressibility and waveform variability. There is normal compressibility at the tibioperoneal trunk. Impression: No right or left femoropopliteal venous thrombosis.
[2024-12-04 08:00] VITALS: PULSE 64; RESP 18; O2SAT 95
[2024-12-04 09:29] LABS: INR 1.08 (0.9-1.15); Partial Thromboplastin Time 27.9 SEC (24.5-34.5); Prothrombin Time 11.4 sec (9.3-11.8)
--- NOTE | 2024-12-04 10:00 | DVHPNRES ---
Progress Note Date Seen: Dec 04, 2024 Resident Creating Document: LILYLYNDA Pearl RESIDENT Medical Necessity Reason Pt with a Central, PICC or Fol: No Subjective Review of Systems History of Present Illness Patient is 86 years old female with a past medical history of hypertension, degenerative joint disease, recurrent fall was brought in by EMS due to status post fall. As per patient she was trying to reach out to a electric switch and she fell backward and hurt her back, denied hitting her head. Patient reported back pain is sharp, 9/10, constant, aggravated with movement, some relief with pain medication. Patient also reported her both legs are swollen for a while. Patient denied any chest pain, shortness of breath, fever, cough, diarrhea, dysarthria or change in vision. Initial lab workup revealed leukocytosis with WBC 14.1, hemoglobin 10.4, neutrophils 29%, platelet 628, eosinophil 29. Chest x-ray cardiomegaly, x-ray lumbar zvgei-Kvr-hjhxyfrhgpadx compression fractures of the L1 and L3 vertebral bodies.Diffuse generalized osseous demineralization. X-ray pelvis- Diffuse generalized osseous demineralization. Hardware within the proximal left femur status post ORIF without evidence of complication. There is no evidence of acute fracture or dislocation. She complains of a chronic low back pain for last few months, she could not specify the duration. Reports having shortness of breath while climbing stairs. Lying down does not make the breathing worse, sitting up does not improve the SOB. She is concerned about her recurrent falls, she believes it is her new slippers that is causing her to fall or when she tries to do things hurriedly. She denies any dizziness, procedures, or lightheadedness before fall. She experiences no confusion after the fall. She complains of bilateral painful leg swellings. She denies using any zdmy-ozd-uiobbpk medicines except her regular vitamin-D. She reports admitting to the hospital due to fall previously as well. Past Medical History Hypertension, degenerative joint disease Past Surgical History Left hip ORIF Past Social History Drinks socially couple of glasses of beer, her last drink was in June 2024. She denies smoking or drugs. Lives with daughter and grandchildren. 12/04 interval events: The patient was seen and examined at the bedside. Overnight events were reviewed. She complains of right lateral chest pain rating 9/10 were movement. Rest of the ROS is negative. Objective vital signs Vital Sign Date Time Temp Pulse Resp B/P (MAP) Pulse Ox O2 Delivery O2 Flow Rate FiO2 12/04/24 09:19 67 12/04/24 08:00 18 95 Room Air* 0 21 12/04/24 08:00 98.2 110/72 (85) 98.2 medications Current Medications Medications Dose Ordered Sig/Santiago Route Start Time Stop Time Status Last Admin Dose Admin Enoxaparin Sodium 40 mg DAILY SC 12/04/24 10:00 Acetaminophen 650 mg Q6HP PRN PO 12/04/24 04:15 Hydromorphone HCl 0.5 mg Q4HPRN PRN IV 12/04/24 04:30 Bumetanide 1 mg BID PO 12/04/24 10:00 Patient Own Medication 1 tab QWEEKLY PO 12/04/24 04:30 Losartan Potassium 25 mg DAILY PO 12/04/24 10:00 Pantoprazole Sodium 40 mg DAILY@0600 PO 12/05/24 06:00 Examination Pt is lying on bed General Appearance: Alert, Oriented X3, Cooperative, Mild distress HEENT: Atraumatic, Mucous membranes moist/pink Respiratory: Clear to auscultation, Normal air movement, No added sounds Cardiovascular: Regular rate, Normal S1, Normal S2, No murmurs Abdominal/ : Active bowel sounds, Soft, no distention, no tenderness Extremities: Bilateral tender leg edema, Normal pulses, No tenderness/swelling Musculoskeletal: Right lateral chest wall tenderness, spine tenderness Skin: No Significant rash, except past surgical scars Neuro: Normal speech, sensorimotor deficits none Psych/Mental Status: Mental status NL, Mood NL Nurse was there as job site supervisor during examination laboratory and microbiology Laboratory Tests 12/04/24 01:42 Test 12/04/24 01:42 Range/Units Serum Glucose 90 74-106 mg/dL Labs and/or images reviewed: Labs reviewed by me, Image(s) reviewed by me Problem List/Assessment/Plan Problem List/Assessment/Plan # Intractable low back pain -status post fall, # Compression fractures of the L1 and L3 vertebral bodies # Mechanical fall without LOC # history of recurrent falls -x-ray lumbar klopl-Daz-osaxtsllcmhcm compression fractures of the L1 and L3 vertebral bodies. Diffuse generalized osseous demineralization -X-ray pelvis- Diffuse generalized osseous demineralization. Hardware within the proximal left femur status post ORIF without evidence of complication. There is no evidence of acute fracture or dislocation. -continue pain medication as prescribed -ordered CT lumbosacral without contrast, pending -consult spine surgeon -supportive management # shortness of breaths due to questionable CHF # bilateral leg edema- ? Amlodipine induced,/rule out DVT/CHF # ruled out DVT -BNP 115 -CXR cardiomegaly -Pending echocardiogram -Currently on bumetanide -discontinued amlodipine # leukocytosis under evaluation -pending urinalysis to rule out UTI # hypertension -discontinued amlodipine -continue losartan 25 mg p.o. daily -monitor blood pressure PUD prophylaxis: Pantoprazole DVT prophylaxis: Lovenox Diet-cardiac diet Goals of care discussed with the patient for more than 27 minutes: Full code status Case discussed with Dr. Anthony , patient and RN Plan discussed with: Patient, Other (RN) My Orders My Orders Orders - LYNDA BAUTISTA RESIDENT Procedure Category Date Status Time Drug Screen LAB 12/04/24 Logged 08:28 Blood Culture MARVIN 12/04/24 In Process 08:28 Date of Service: Dec 04, 2024 Billing Provider: HOMER ANTHONY MD Common Visit Codes: [id number] INP/OBS CARE(HIGH) YLNDA BAUTISTA RESIDENT Dec 04, 2024 10:00 MANA LUX RESIDENT Dec 04, 2024 15:38 HOMER ANTHONY MD Dec 04, 2024 22:44
[2024-12-04] MEDS: BUMETANIDE 1 MG TAB PO SCH (10:46)
[2024-12-04] MEDS: LOSARTAN POTASSIUM 25 MG TAB PO SCH (10:46)
[2024-12-04] MEDS: ENOXAPARIN SOD 40 MG/0.4 ML SYRINGE SC SCH (10:46)
[2024-12-04] MEDS ORDERED: HYDROcodone-ACET 5/325MG TAB PO PRN (13:30)
[2024-12-04 15:14] LABS: Opiate Scree,Urine Neg (NEGATIVE)
[2024-12-04 15:19] LABS: Urine Protein, UAD Negative (Negative)
[2024-12-04 15:23] LABS: Amphetamine Screen, Urine Neg (NEGATIVE); Barbiturate Scree,Urine Neg (NEGATIVE); Benzodiazephine Screen, Urine Neg (NEGATIVE); Cannabinoid Screen, Urine Neg (NEGATIVE); Cocaine Screen, Urine Neg (NEGATIVE); Phencyclidine Screen, Urine Neg (NEGATIVE)
--- NOTE | 2024-12-04 16:34 | DVH ---
EXAM: CT LS SPINE WO CONTRAST HISTORY: Fracture COMPARISON: None CTDIvol 16 mGy, DLP 74 mGy*cm. TECHNIQUE: Multiple axial CT images of the spine were obtained using bone algorithm. Axial and madera l reformatting was done. Bone and soft tissue windows were reviewed. FINDINGS: No evidence of definite acute fracture, spinal dislocation, or significant appearing acute subluxatio n is seen. Diffuse osteopenia. Multilevel degenerative changes of the spine. Age indeterminate, like ly chronic mild compression deformities of L5, L2 and T12. IMPRESSION: No definite CT evidence of acute fracture or dislocation of the bony lumbar spine.
[2024-12-04 22:00] VITALS: PULSE 60; RESP 16; O2SAT 96
[2024-12-04 23:38] VITALS: BP 134/74; PULSE 70; RESP 17; RESP 18; TEMP 98.2; O2SAT 91
[2024-12-05] MEDS: PANTOPRAZOLE 40 MG TAB PO SCH (05:59)
[2024-12-05 07:17] LABS: Hemoglobin 9.8 g/dL (12.2-16.2)
[2024-12-05 07:19] LABS: Hematocrit 28.7 % (36.0-46.0); Mean Corpuscular Hemoglobin 32.2 pg (28.0-32.0); Mean Corpuscular Volume 94.6 fL (80.0-100.0)
[2024-12-05 07:42] LABS: Alanine Aminotransferase 10 U/L (7-40); Alkaline Phosphatase 95 U/L (46-116); Anion Gap 9 (5-15); BUN/Creatinine Ratio 19.4 (10.0-20.0); Blood Urea Nitrogen 20 mg/dL (9-23); Calcium 9.3 mg/dL (8.7-10.4); Carbon Dioxide 30 mmol/L (20-31); Chloride 104 mmol/L (98-107); Glucose 86 mg/dL (74-106); Potassium 3.8 mmol/L (3.5-5.1); Sodium 143 mmol/L (136-145)
[2024-12-05 07:43] LABS: Bilirubin, Total 0.4 mg/dL (0.2-1.0)
[2024-12-05 07:44] LABS: Albumin 3.2 g/dL (3.2-4.8); Total Protein 5.2 g/dL (5.7-8.2)
[2024-12-05 08:00] VITALS: PULSE 72; RESP 15; O2SAT 92
[2024-12-05 09:00] VITALS: BP 140/74; PULSE 72; RESP 15; TEMP 98.1; O2SAT 92
[2024-12-05 09:47] LABS: Total Cells Counted 100.0 (100)
[2024-12-05 09:48] LABS: Anisocytosis Slight
[2024-12-05] MEDS: HYDROmorphone HCL 2 MG/ML VL/or syr IV PRN (11:42)
[2024-12-05 12:33] VITALS: BP 118/79; PULSE 86; RESP 15; TEMP 98.3; O2SAT 95
[2024-12-05 16:39] VITALS: BP 111/67; PULSE 78; RESP 15; TEMP 97.8; O2SAT 93
--- NOTE | 2024-12-05 17:56 | DVHDSRES ---
Discharge Summary Date of Admission Resident Creating Document: LYNDA BAUTISTA Dec 04, 2024 at 04:12 Date of Discharge: Dec 05, 2024 Admitting Diagnosis Back pain followed by fall Labs/Diagnostic Data: Laboratory Results Test 12/05/24 06:20 12/04/24 09:55 12/04/24 08:40 12/04/24 08:28 White Blood Count 13.1 10^3/uL (4.4-10.8) Red Blood Count 3.04 10^6/uL (4.0-5.20) Hemoglobin 9.8 g/dL (12.2-16.2) Hematocrit 28.7 % (36.0-46.0) Mean Corpuscular Volume 94.6 fL (80.0-100.0) Mean Corpuscular Hemoglobin 32.2 pg (28.0-32.0) Mean Corpuscular Hemoglobin Concent 34.0 g/dL (32.0-36.0) Red Cell Distribution Width 23.6 % (11.8-14.3) Platelet Count 520 10^3/uL (140-450) Mean Platelet Volume 7.0 fL (6.9-10.8) Neutrophils (%) (Auto) % (37.0-80.0) Lymphocytes (%) (Auto) % (10.0-50.0) Monocytes (%) (Auto) % (0.0-12.0) Eosinophils (%) (Auto) % (0.0-7.0) Basophils (%) (Auto) % (0.0-2.0) Neutrophils # (Auto) 10 ^3/uL (1.6-8.6) Lymphocytes # (Auto) 10 ^3/uL (0.4-5.4) Monocytes # (Auto) 10 ^3/uL (0-1.3) Differential Total Cells Counted 100.0 (100) Neutrophils % (Manual) 36 (37.0-80.0) Band Neutrophils % (Manual) 0 Lymphocytes % (Manual) 14 (10.0-50.0) Monocytes % (Manual) 8 (0-12) Eosinophils % (Manual) 42 (0-7) Basophils % (Manual) 0 (0.0-2.0) Metamyelocytes % (manual) 0 Myelocytes % (Manual) 0 Promyelocytes % (Manual) 0 Blast Cells % (Manual) 0 Reactive Lymphocytes 0 Platelet Estimate Increased Anisocytosis (manual) Slight Sodium Level 143 mmol/L (136-145) Potassium Level 3.8 mmol/L (3.5-5.1) Chloride Level 104 mmol/L (98-107) Carbon Dioxide Level 30 mmol/L (20-31) Anion Gap 9 (5-15) Blood Urea Nitrogen 20 mg/dL (9-23) Creatinine 1.03 mg/dL (0.550-1.02) Glomerular Filtration Rate Calc 53 mL/min (>90) BUN/Creatinine Ratio 19.4 (10.0-20.0) Serum Glucose 86 mg/dL (74-106) Calcium Level 9.3 mg/dL (8.7-10.4) Total Bilirubin 0.4 mg/dL (0.2-1.0) Aspartate Amino Transferase (AST) 21 U/L (13-40) Alanine Aminotransferase (ALT) 10 U/L (7-40) Alkaline Phosphatase 95 U/L (46-116) Total Protein 5.2 g/dL (5.7-8.2) Albumin 3.2 g/dL (3.2-4.8) Urine Color Colorless (Yellow) Urine Clarity Clear (Clear) Urine pH 5.0 (5.0-9.0) Urine Specific [place] 1.006 (1.001-1.035) Urine Protein Negative (Negative) Urine Ketones Negative (Negative) Urine Blood Negative /uL (Negative) Urine Nitrite Negative (Negative) Urine Bilirubin Negative (Negative) Urine Urobilinogen Normal mg/dL (Negative) Urine Leukocyte Esterase Negative /uL (Negative) Urine RBC <1 /hpf (0 - 4) Urine Microscopic WBC < 1 /HPF (0-5) Urine Squamous Epithelial Cells Few /hpf (<5) Urine Bacteria Few /hpf (None Seen) Urine Glucose Normal mg/dL (Normal) Urine Opiates Screen Neg (NEGATIVE) Urine Fentanyl Screen Neg (NEGATIVE) Urine Barbiturates Screen Neg (NEGATIVE) Urine Phencyclidine Screen Neg (NEGATIVE) Urine Amphetamines Screen Neg (NEGATIVE) Urine Benzodiazepines Screen Neg (NEGATIVE) Urine Cocaine Screen Neg (NEGATIVE) Urine Cannabinoids Screen Neg (NEGATIVE) Hemoglobin A1c 5.9 % A1C (<5.7) Vitamin B12 Level 485 pg/mL (211-911) Vitamin D 25-Hydroxy 38.4 ng/mL (30.0-100) Folic Acid 16.88 ng/mL (>5.38) Prothrombin Time 11.4 sec (9.3-11.8) Prothrombin Time INR 1.08 (0.9-1.15) Activated Partial Thromboplast Time 27.9 SEC (24.5-34.5) Test 12/04/24 01:42 Magnesium Level 2.2 mg/dL (1.6-2.6) Direct Bilirubin 0.1 mg/dL (<0.3) B-Type Natriuretic Peptide 115.53 pg/mL (0-100) Thyroid Stimulating Hormone (TSH) 0.91 uIU/mL (0.55-4.78) Other Laboratory Tests 12/05/24 06:20 Brief Hx & Hospital Course: Patient is 86 years old female with a past medical history of hypertension, degenerative joint disease, recurrent fall was brought in by EMS due to status post fall. As per patient she was trying to reach out to a electric switch and she fell backward and hurt her back, denied hitting her head. Patient reported back pain is sharp, 9/10, constant, aggravated with movement, some relief with pain medication. Patient also reported her both legs are swollen for a while. Patient denied any chest pain, shortness of breath, fever, cough, diarrhea, dysarthria or change in vision. Initial lab workup revealed leukocytosis with WBC 14.1, hemoglobin 10.4, neutrophils 29%, platelet 628, eosinophil 29. Chest x-ray cardiomegaly, x-ray lumbar ohbnj-Thy-sboarwhcijedj compression fractures of the L1 and L3 vertebral bodies. Diffuse generalized osseous demineralization. X-ray pelvis- Diffuse generalized osseous demineralization. Hardware within the proximal left femur status post ORIF without evidence of complication. There is no evidence of acute fracture or dislocation. She complains of a chronic low back pain for last few months, she could not specify the duration. Reports having shortness of breath while climbing stairs. Lying down does not make the breathing worse, sitting up does not improve the SOB. She is concerned about her recurrent falls, she believes it is her new slippers that is causing her to fall or when she tries to do things hurriedly. She denies any dizziness, procedures, or lightheadedness before fall. She experiences no confusion after the fall. She complains of bilateral painful leg swellings. She denies using any atos-pvn-prfatme medicines except her regular vitamin-D. She reports admitting to the hospital due to fall previously as well. Past Medical History Hypertension, degenerative joint disease Past Surgical History Left hip ORIF Past Social History Drinks socially couple of glasses of beer, her last drink was in June 2024. She denies smoking or drugs. Lives with daughter and grandchildren. X-ray lumbar spine revealed age indeterminate compression fractures of the L1-L2 vertebral bodies diffusion dialysis is demineralization. Hardware within the proximal left femur status post ORIF without evidence of complication. There is no evidence of acute fracture or dislocation. Being managed with morphine and Polvadera. The patient's hypertension has managed with losartan 25 mg and bumetanide. Her amlodipine was discontinued due to leg swelling. DVT was ruled out by U/S Doppler are study of extremities. Chest x-ray revealed cardiomegaly. Her BNP was normal. Echocardiography was done. She was given pantoprazole for GI prophylaxis and Lovenox for DVT prophylaxis. She was on cardiac diet. During the time of discharge the patient acute pain was improved, the patient was hemodynamically stable and was able to take oral fluids. The patient agreed with the discharge plan after discussion. The patient was advised to follow up with PCP after 1 week. General Appearance: Alert, Oriented X3, Cooperative, Mild distress HEENT: Atraumatic, Mucous membranes moist/pink Respiratory: Clear to auscultation, Normal air movement, No added sounds Cardiovascular: Regular rate, Normal S1, Normal S2, No murmurs Abdominal/ : Active bowel sounds, Soft, no distention, no tenderness Extremities: Bilateral tender leg edema, Normal pulses, No tenderness/swelling Musculoskeletal: Right lateral chest wall tenderness, spine tenderness Skin: No Significant rash, except past surgical scars Neuro: Normal speech, sensorimotor deficits none Psych/Mental Status: Mental status NL, Mood NL Nurse was there as mothercraft nurse during examination Operations or Procedures CT lumbosacral without contrast,No evidence of definite acute fracture, spinal dislocation, or significant appearing acute subluxation is seen. Diffuse osteopenia. Multilevel degenerative changes of the spine. Age indeterminate, likely chronic mild compression deformities of L5, L2 and T12. Duplex Doppler evaluation of the deep venous systems of both lower extremities from the common # XY PELVIS AP: Diffuse generalized osseous demineralization. Hardware within the proximal left femur status post ORIF without evidence of complication. There is no evidence of acute fracture or dislocation. Condition at Discharge: Stable Final Diagnosis/Problems List History of recurrent falls Lumbar spine compression fractures L1 and L3 Shortness of breath due to CHF Bilateral leg edema Leukocytosis Hypertension Discharge Disposition: Home Discharge Instruct/Medications Scheduled Alendronate Sodium (Alendronate Sodium), 1 TAB PO QWEEKLY, (Reported) Amlodipine Besylate (Amlodipine Besylate), 1 TAB PO DAILY, (Reported) Bumetanide (Bumetanide), 1 TAB PO BID, (Reported) Hydroxyzine Hcl (Hydroxyzine Hcl), 1 TAB PO HS, (Reported) Prednisone (Prednisone), 1 TAB PO DAILY, (Reported) Scheduled PRN Meloxicam (Meloxicam), 7.5 MG PO DAILY PRN Discharge Statement: "Patient was advised to return to the ER or call 911 if any headaches, dizziness, shortness of breath, chest pain, abdominal pain, bleeding, fevers, or worsening of medical condition. Patient was counseled about treatment plan, medications, possible side effects, patientverbalized understanding. All questions were answered to the best of my ability. This discharge took greater then 30 minutes in planning, reviewing documentation, counseling the patient, and discussing with other team members." ASSESSMENT ASSESSMENT Assessment Date of Service: Dec 05, 2024 Billing Provider: HOMER ANTHONY MD Common Visit Codes: [id number]/OBS DISCH DAY >30min LYNDA BAUTISTA Dec 05, 2024 17:56 HOMER ANTHONY MD Dec 05, 2024 21:44
[2024-12-05 21:00] VITALS: BP 98/58; PULSE 80; RESP 18; TEMP 98.7; O2SAT 95
[2024-12-05 21:44] VITALS: BP 104/65
[2024-12-06] VITALS (8 sets, daily range): BP systolic 94–128; BP diastolic 56–78; PULSE 69–100; RESP 17–20; TEMP 97.9–98.2; O2SAT 93–100
--- NOTE | 2024-12-06 10:41 | DVHSR ---
APPROVED REPORT EXAM: Two-dimensional and M-mode echocardiogram with Doppler and color Doppler. Blood Pressure: 106/66 mmHg INDICATION Dyspnea CHF? RISK FACTORS Height: 63, Weight: 136 DIMENSIONS LVDd4.2 (3.8-5.7cm)LA (2D)3.9 (1.9-4.0cm)Aortic Root3.2 (2.0-3.7cm) LVDs2.6 (2.5-4.0cm)LA (MM) (1.9-4.0cm)Aortic Cusp Exc1.8 (1.5-2.0cm) EF (%) 71.0 (55-70%)Rt. Atrium4.0 (1.9-4.0cm)Asc. Aorta cm IVSd1.1 (0.7-1.1cm)RV (D) (1.8-2.4cm) PWd1.1 (0.7-1.1cm) Mitral Valve MitralMitral Stenosis E wave0.75m/sMV Mean GR.mmHg A wave1.06m/sMV Peak GR.mmHg E/A ratio0.72D MVAcm2 DECEL [id number] 1/2 Xtrv52dk IVRTmsDop MVA3.06cm2 Aortic Valve Aortic ValveAortic Stenosis V11.19m/Mary Mean GR.6mmHg V21.71m/Mary Peak GR.12mmHg LVOT Diameter1.9 (1.8-2.4cm)Doppler AVA1.97cm2 AI P 1/2 Usrc214.58ms Pulmonic Valve V20.89m/s Tricuspid Valve TR Velocity3.31m/s [id number] Other Information Quality : Technically LimitedRhythm : Conclusion LVEF 55-60%, mild LVH. Mild diastolic dysfunction Right ventricle mildly dilated with normal functionl Moderate tricuspid regurgitation and moderate pulmonary hypertension, RVSP 55-60mmgh
[2024-12-06] MEDS ORDERED: CALALOT EX (15:56)
--- NOTE | 2024-12-06 16:42 | DVHPNRES ---
Progress Note Date Seen: Dec 06, 2024 Resident Creating Document: LILYLYNDA Pearl RESIDENT Medical Necessity Reason Pt with a Central, PICC or Fol: No Subjective Review of Systems Patient is 86 years old female with a past medical history of hypertension, degenerative joint disease, recurrent fall was brought in by EMS due to status post fall. As per patient she was trying to reach out to a electric switch and she fell backward and hurt her back, denied hitting her head. Patient reported back pain is sharp, 9/10, constant, aggravated with movement, some relief with pain medication. Patient also reported her both legs are swollen for a while. Patient denied any chest pain, shortness of breath, fever, cough, diarrhea, dysarthria or change in vision. Initial lab workup revealed leukocytosis with WBC 14.1, hemoglobin 10.4, neutrophils 29%, platelet 628, eosinophil 29. Chest x-ray cardiomegaly, x-ray lumbar cishd-Uel-kjnhjhgybunca compression fractures of the L1 and L3 vertebral bodies. Diffuse generalized osseous demineralization. X-ray pelvis- Diffuse generalized osseous demineralization. Hardware within the proximal left femur status post ORIF without evidence of complication. There is no evidence of acute fracture or dislocation. She complains of a chronic low back pain for last few months, she could not specify the duration. Reports having shortness of breath while climbing stairs. Lying down does not make the breathing worse, sitting up does not improve the SOB. She is concerned about her recurrent falls, she believes it is her new slippers that is causing her to fall or when she tries to do things hurriedly. She denies any dizziness, procedures, or lightheadedness before fall. She experiences no confusion after the fall. She complains of bilateral painful leg swellings. She denies using any fymj-zyz-cdmjxzw medicines except her regular vitamin-D. She reports admitting to the hospital due to fall previously as well. Past Medical History Hypertension, degenerative joint disease Past Surgical History Left hip ORIF Past Social History Drinks socially couple of glasses of beer, her last drink was in June 2024. She denies smoking or drugs. Lives with daughter and grandchildren. 12/06 interval events: The patient was seen and examined at the bedside. Overnight events were reviewed. She reports improvements in her back and chest wall pain. She reports having iching in the interdigital spaces and thighs. Rest of the ROS is negative. Patient is discharged with home health services after PT evaluation. Objective vital signs Vital Sign Date Time Temp Pulse Resp B/P (MAP) Pulse Ox O2 Delivery O2 Flow Rate FiO2 12/06/24 13:00 98.1 100 17 104/72 (83) 96 98.1 12/06/24 08:00 Room Air* 0 21 Total Intake and Output 12/05/24 12/05/24 12/06/24 15:00 23:00 07:00 Intake Total 1000 ml 400 ml Balance 1000 ml 400 ml medications Current Medications Medications Dose Ordered Sig/Santiago Route Start Time Stop Time Status Last Admin Dose Admin Enoxaparin Sodium 40 mg DAILY SC 12/04/24 10:00 12/06/24 10:17 40 MG Acetaminophen 650 mg Q6HP PRN PO 12/04/24 04:15 Hydromorphone HCl 0.5 mg Q4HPRN PRN IV 12/04/24 04:30 12/05/24 11:42 0.5 MG Bumetanide 1 mg BID PO 12/04/24 10:00 12/06/24 10:17 1 MG Patient Own Medication 1 tab QWEEKLY PO 12/04/24 04:30 Hold Losartan Potassium 25 mg DAILY PO 12/04/24 10:00 12/06/24 10:17 25 MG Pantoprazole Sodium 40 mg DAILY@0600 PO 12/05/24 06:00 12/06/24 05:41 40 MG Acetaminophen/ Hydrocodone Bitart 1 tab Q6HPRN PRN PO 12/04/24 13:30 Examination General Appearance: Alert, Oriented X3, Cooperative, Mild distress HEENT: Atraumatic, Mucous membranes moist/pink Respiratory: Clear to auscultation, Normal air movement, No added sounds Cardiovascular: Regular rate, Normal S1, Normal S2, No murmurs Abdominal/ : Active bowel sounds, Soft, no distention, no tenderness Extremities: Bilateral tender leg edema, Normal pulses, No tenderness/swelling Musculoskeletal: Right lateral chest wall tenderness, spine tenderness Skin: dry skin, Scratch antolin on the hands and thighs Neuro: Normal speech, sensorimotor deficits none Psych/Mental Status: Mental status NL, Mood NL Nurse was there as cooker helper during examination laboratory and microbiology Laboratory Tests 12/05/24 06:20 Test 12/05/24 06:20 Range/Units Serum Glucose 86 74-106 mg/dL Microbiology Date/Time Source Procedure Growth Status 12/05/24 01:34 Nose MRSA Screen - Final Complete 12/04/24 09:49 Blood Blood Culture - Preliminary NO GROWTH AFTER 48 HOURS OF INCUBATION. Resulted Labs and/or images reviewed: Labs reviewed by me, Image(s) reviewed by me Problem List/Assessment/Plan Problem List/Assessment/Plan # Intractable low back pain -status post fall, rule out fracture/musculoskeletal pain # fall # history of recurrent fall -x-ray lumbar dlbqw-Orf-svkslcxuzeiyq compression fractures of the L1 and L3 vertebral bodies. Diffuse generalized osseous demineralization -. X-ray pelvis- Diffuse generalized osseous demineralization. Hardware within the proximal left femur status post ORIF without evidence of complication. There is no evidence of acute fracture or dislocation. -continue pain medication as prescribed # shortness of breaths due to questionable CHF BNP 115 CXR cardiomegaly Echocardiography ? Cardiology consult # bilateral leg edema- ? Amlodipine induced, rule out DVT -Doppler study of the lower extremity- negative for DVT -discontinued amlodipine # leukocytosis under evaluation -pending urinalysis to rule out UTI # hypertension -discontinued amlodipine -continue losartan 25 mg p.o. daily -monitor blood pressure # itching due to dry skin Calamine lotion prescribed outpatient during discharge. Diet-cardiac diet Goals of care, Code status full code ; discussed with >15 minutes PUD prophylaxis: Pantoprazole DVT prophylaxis: Lovenox Goals of care discussed with the patient for more than 27 minutes: Full code status Case discussed with Dr. Hernandez , patient and RN Plan discussed with: Patient, Other (RN) My Orders My Orders Orders - LYNDA BAUTISTA Procedure Category Date Status Time * Floor Finisher Helper CONS 12/06/24 Transmitted Consult Discharge DISCHARGE 12/06/24 Transmitted 06:44 Date of Service: Dec 06, 2024 Billing Provider: HOMER HERNANDEZ MD Common Visit Codes: [id number] INP/OBS CARE(HIGH) LYNDA BAUTISTA RESIDENT Dec 06, 2024 16:42 HOMER HERNANDEZ MD Dec 06, 2024 23:48
[2024-12-07 01:00] VITALS: BP 113/59; PULSE 83; RESP 18; TEMP 98.2; O2SAT 91
[2024-12-07 05:00] VITALS: BP 116/78; PULSE 81; RESP 16; TEMP 99.8; O2SAT 95
[2024-12-07 08:00] VITALS: PULSE 77; RESP 16; O2SAT 95
[2024-12-07 08:43] VITALS: BP 118/90; PULSE 77; RESP 16; TEMP 98.1; O2SAT 95
[2024-12-07 13:00] VITALS: BP 122/87; PULSE 68; RESP 16; TEMP 98.1; O2SAT 96
--- NOTE | 2024-12-07 15:48 | DVHPNRES ---
Progress Note Date Seen: Dec 07, 2024 Resident Creating Document: LILYLYNDA RESIDENT Medical Necessity Reason Pt with a Central, PICC or Fol: No Subjective Review of Systems atient is 86 years old female with a past medical history of hypertension, degenerative joint disease, recurrent fall was brought in by EMS due to status post fall. As per patient she was trying to reach out to a electric switch and she fell backward and hurt her back, denied hitting her head. Patient reported back pain is sharp, 9/10, constant, aggravated with movement, some relief with pain medication. Patient also reported her both legs are swollen for a while. Patient denied any chest pain, shortness of breath, fever, cough, diarrhea, dysarthria or change in vision. Initial lab workup revealed leukocytosis with WBC 14.1, hemoglobin 10.4, neutrophils 29%, platelet 628, eosinophil 29. Chest x-ray cardiomegaly, x-ray lumbar kkbjg-Ndr-kcmpbqrtdbzkv compression fractures of the L1 and L3 vertebral bodies. Diffuse generalized osseous demineralization. X-ray pelvis- Diffuse generalized osseous demineralization. Hardware within the proximal left femur status post ORIF without evidence of complication. There is no evidence of acute fracture or dislocation. She complains of a chronic low back pain for last few months, she could not specify the duration. Reports having shortness of breath while climbing stairs. Lying down does not make the breathing worse, sitting up does not improve the SOB. She is concerned about her recurrent falls, she believes it is her new slippers that is causing her to fall or when she tries to do things hurriedly. She denies any dizziness, procedures, or lightheadedness before fall. She experiences no confusion after the fall. She complains of bilateral painful leg swellings. She denies using any ygem-oua-srvvcon medicines except her regular vitamin-D. She reports admitting to the hospital due to fall previously as well. Past Medical History Hypertension, degenerative joint disease Past Surgical History Left hip ORIF Past Social History Drinks socially couple of glasses of beer, her last drink was in June 2024. She denies smoking or drugs. Lives with daughter and grandchildren. 12/07 interval events: The patient was seen and examined at the bedside. Overnight events were reviewed. She reports improvements in her back and chest wall pain. She reports having iching in the interdigital spaces and thighs. Rest of the ROS is negative. Patient is discharged with home health services after PT evaluation. Patient's daughter contacted and will go home today. Objective vital signs Vital Sign Date Time Temp Pulse Resp B/P (MAP) Pulse Ox O2 Delivery O2 Flow Rate FiO2 12/07/24 13:00 98.1 68 16 122/87 (99) 96 98.1 12/07/24 08:00 Room Air* 0 21 Total Intake and Output 12/06/24 12/06/24 12/07/24 15:00 23:00 07:00 Intake Total 500 ml 240 ml Balance 500 ml 240 ml medications Current Medications Medications Dose Ordered Sig/Santiago Route Start Time Stop Time Status Last Admin Dose Admin Enoxaparin Sodium 40 mg DAILY SC 12/04/24 10:00 12/06/24 10:17 40 MG Acetaminophen 650 mg Q6HP PRN PO 12/04/24 04:15 Hydromorphone HCl 0.5 mg Q4HPRN PRN IV 12/04/24 04:30 12/05/24 11:42 0.5 MG Bumetanide 1 mg BID PO 12/04/24 10:00 12/06/24 10:17 1 MG Patient Own Medication 1 tab QWEEKLY PO 12/04/24 04:30 Hold Losartan Potassium 25 mg DAILY PO 12/04/24 10:00 12/06/24 10:17 25 MG Pantoprazole Sodium 40 mg DAILY@0600 PO 12/05/24 06:00 12/07/24 06:13 40 MG Acetaminophen/ Hydrocodone Bitart 1 tab Q6HPRN PRN PO 12/04/24 13:30 Examination General Appearance: Alert, Oriented X3, Cooperative, Mild distress HEENT: Atraumatic, Mucous membranes moist/pink Respiratory: Clear to auscultation, Normal air movement, No added sounds Cardiovascular: Regular rate, Normal S1, Normal S2, No murmurs Abdominal/ : Active bowel sounds, Soft, no distention, no tenderness Extremities: Bilateral tender leg edema, Normal pulses, No tenderness/swelling Musculoskeletal: Right lateral chest wall tenderness, spine tenderness Skin: dry skin, Scratch antolin on the hands and thighs Neuro: Normal speech, sensorimotor deficits none Psych/Mental Status: Mental status NL, Mood NL 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 Resulted Problem List/Assessment/Plan Problem List/Assessment/Plan # Intractable low back pain -status post fall, rule out fracture/musculoskeletal pain # fall # history of recurrent fall -x-ray lumbar dhpky-Ouk-avpwzqioeptja compression fractures of the L1 and L3 vertebral bodies. Diffuse generalized osseous demineralization -. X-ray pelvis- Diffuse generalized osseous demineralization. Hardware within the proximal left femur status post ORIF without evidence of complication. There is no evidence of acute fracture or dislocation. -continue pain medication as prescribed # shortness of breaths due to questionable CHF BNP 115 CXR cardiomegaly Echocardiography ? Cardiology consult # bilateral leg edema- ? Amlodipine induced, rule out DVT -Doppler study of the lower extremity- negative for DVT -discontinued amlodipine # leukocytosis under evaluation -pending urinalysis to rule out UTI # hypertension -discontinued amlodipine -continue losartan 25 mg p.o. daily -monitor blood pressure # itching due to dry skin Calamine lotion prescribed outpatient during discharge. Diet-cardiac diet Goals of care, Code status full code ; discussed with >15 minutes PUD prophylaxis: Pantoprazole DVT prophylaxis: Lovenox Goals of care discussed with the patient for more than 27 minutes: Full code status Case discussed with Dr. Hernandez , patient and RN Plan discussed with: Patient, Other (RN) Date of Service: Dec 07, 2024 Billing Provider: HOMER HERNANDEZ MD Common Visit Codes: 00127-AMM/OBS DISCH DAY >30min LYNDA BAUTISTA RESIDENT Dec 07, 2024 15:48 HOMER HERNANDEZ MD Dec 08, 2024 23:46
== END 2024-12-07 16:25 | disposition home health service (06) | DRG 552 ==
LOC: EDUNIT# 22:37 → EDBD 22:37 → ER 22:37 → OVERFLOW 12-04 04:12 → WEST WING 12-04 23:31
PROVIDERS: ADMIT Internal Medicine; ATTEND Emergency Medicine
DX: S32.018A Other fracture of first lumbar vertebra, initial encounter for closed fracture (principal); I11.0 Hypertensive heart disease with heart failure; I50.9 Heart failure, unspecified; D72.829 Elevated white blood cell count, unspecified; I11.9 Hypertensive heart disease without heart failure; Z88.8 Allergy status to other drugs, medicaments and biological substances; S32.038A Other fracture of third lumbar vertebra, initial encounter for closed fracture; Z90.710 Acquired absence of both cervix and uterus; Z79.899 Other long term (current) drug therapy; W01.0XXA Fall on same level from slipping, tripping and stumbling without subsequent striking against object, initial encounter; Y93.89 Activity, other specified; Y99.8 Other external cause status; Y92.89 Other specified places as the place of occurrence of the external cause
CPT/HCPCS: 36415; 72131; 80048; 80053; 80076; 80307; 81001; 82306; 82607; 82746; 83036; 83735; 83880; 84443; 85007; 85027; 85610; 85730; 87040; 87081; 93306; 93970; 97163; G0378; J2405

== ENCOUNTER 2025-04-21 12:36 | Inpatient (IN) | payer OTHER ==
[~2025-04-21] VITALS: Ht 157.5 cm; Wt 70.5 kg
[~2025-04-21 12:36] MED LIST changes: +CALALOT EX; +CLOB0.055 TOP; +DOCU-265 PO; +LATA0.008 EACHEYE; +PREG25CA28 PO; +RIVA2.5T PO; +TACR0.1O7 TOP
--- NOTE | 2025-04-21 13:08 | ED.PDOC ---
History of Present Illness HPI Comments 85 y.o female presents to the ED for medical clearance. Patient BIB daughter, presents to be admitted for right sided hip surgery on Wednesday04/23/25 s/p falling.Patient had emergency surgery. Patient was sent by Dr. Gandhi for the hip replacement. She denies any new symptoms. She is not ambulatory at this time and gets around via wheelchair. Chief Complaint: Medical Clearance Time Seen by MD: 14:35 Primary Care Provider: UNKNOWN Reviewed Notes: Nurses Notes, Medications, Allergies Allergies: Coded Allergies: Memantine (Verified Allergy, Severe, 08/20/23) Home Meds Active Scripts Calamine (Calamine) 1 Lot Lot, 1 LOT EX BIDPRN PRN for 10 Days, #1 BOTTLE Prov:MANA LUX RESIDENT 12/06/24 Meloxicam (Meloxicam) 7.5 Mg Tab, 7.5 MG PO DAILY PRN, #30 TAB Prov:TATE PATEL CUFF MAKER 08/20/23 Reported Medications Amlodipine Besylate (Amlodipine Besylate) 10 Mg Tab, 1 TAB PO DAILY 11/13/24 Hydroxyzine Hcl (Hydroxyzine Hcl) 25 Mg Tab, 1 TAB PO HS 11/13/24 Bumetanide (Bumetanide) 1 Mg Tab, 1 TAB PO BID 11/13/24 Alendronate Sodium (Alendronate Sodium) 70 Mg Tab, 1 TAB PO QWEEKLY 11/13/24 Prednisone (Prednisone) 5 Mg Tab, 1 TAB PO DAILY 11/13/24 Information Source: Patient Mode of Arrival: Ambulatory Severity: None Timing: Came on: Gradually Duration: Since onset Past Medical History PAST MEDICAL HISTORY: HTN Surgical History: Hysterectomy GLUE BONE CRUSHER History: Denies all GLUE BONE CRUSHER Hx Family History Family History: Reviewed,noncontributory to illness Social History Smoker: Non-Smoker Alcohol: Denies ETOH Use Drugs: Denies Drug Use Lives In: Home Constitutional: denies: chills, diaphoresis, fatigue, fever, malaise, sweats, weakness, others EENTM: denies: blurred vision, double vision, ear bleeding, ear discharge, ear drainage, ear pain, ear ringing, eye pain, eye redness, hearing loss, mouth pain, mouth swelling, nasal discharge, nose bleeding, nose congestion, nose pain, photophobia, tearing, throat pain, throat swelling, voice changes, others Respiratory: denies: cough, hemoptysis, orthopnea, SOB at rest, shortness of breath, SOB with excertion, stridor, wheezing, others Cardiovascular: denies: chest pain, dizzy spells, diaphoresis, Dyspnea on exertion, edema, irregular heart beat, left arm pain, lightheadedness, palpitations, PND, syncope, others Gastrointestinal: denies: abdomen distended, abdominal pain, blood streaked bowels, constipated, diarrhea, dysphagia, difficulty swallowing, hematemesis, melena, nausea, poor appetite, poor fluid intake, rectal bleeding, rectal pain, vomiting, others Genitourinary: denies: abnormal vagina bleeding, burning, dyspareunia, dysuria, flank pain, frequency, hematuria, incontinence, pain, , vagina discharge , urgency, others Neurological: denies: dizziness, fainting, headache, left sided numbness, left sided weakness, numbness, paresthesia, pre-existing deficit, right sided numbness, right sided weakness, seizure, speech problems, tingling, tremors, weakness, others Musculoskeletal: denies: back pain, gout, joint pain, joint swelling, muscle pain, muscle stiffness, neck pain, others Integumetry: denies: bruises, change in color, change in hair/nails, dryness, laceration, lesions, lumps, rash, wounds, others Allergic/Immunocompromised: denies: Difficulty Healing, Frequent Infections, Hives, Itching, others Hematologic/Lymphatic: denies: anemia, blood clots, easy bleeding, easy bruising, swollen glands, others Endocrine: denies: excessive hunger, excessive sweating, excessive thirst, excessive urination, flushing, intolerance to cold, intolerance to heat, unexplained weight gain, unexplained weight loss, others Psychiatric: denies: anxiety, bipolar disorder, depression, hopeless, panic di sorder, schizophrenia, sleepless, suicidal, others All Other Systems: Reviewed and Negative Physical Exam Exam Comments Sitting in a wheelchair General Appearance: No Apparent Distress, Normal HEENT: Normal ENT Inspection, Pharynx Normal, TMs Normal Neck: Full Range of Motion, Non-Tender, Normal, Normal Inspection Respiratory: Chest Non-Tender, Lungs Clear, No Accessory Muscle Use, No Respiratory Distress, Normal Breath Sounds Cardiovascular: No Edema, No JVD, No Murmur, No Gallop, Normal Peripheral Pulses, Regular Rate/Rhythm Breast Exam: Deferred Gastrointestinal: No Organomegaly, Non Tender, No Pulsatile Mass, Normal Bowel Sounds, Soft Genitalia: Deferred Pelvic: Deferred Rectal: Deferred Extremities: No calf tenderness, Normal capillary refill, Normal inspection, Normal range of motion, Non-tender, No pedal edema Musculoskeletal : Apperance: Normal Neurologic: Alert, No Motor Deficits, Normal Affect, Normal Mood, No Sensory Deficits Cerebellar Function: Normal Reflexes: Normal Skin: Dry, Normal Color, Warm Lymphatic: No Adenopathy Was a procedure done? Was a procedure done?: No Differential Dx Considerations may include: preoperation prep, medical clearance. X-Ray, Labs, Meds, VS Vital Signs Date Time Temp Pulse Resp B/P (MAP) Pulse Ox O2 Delivery O2 Flow Rate FiO2 04/21/25 12:46 97.2 62 18 94/56 100 97.2 Lab Test 04/21/25 14:06 04/21/25 13:08 Range/Units Troponin I High Sensitivity Pending 6 </=34 ng/L White Blood Count 10.1 4.4-10.8 10^3/uL Red Blood Count 3.13 L 4.0-5.20 10^6/uL Hemoglobin 9.5 L 12.2-16.2 g/dL Hematocrit 29.4 L 36.0-46.0 % Mean Corpuscular Volume 93.7 80.0-100.0 fL Mean Corpuscular Hemoglobin 30.4 28.0-32.0 pg Mean Corpuscular Hemoglobin Concent 32.5 32.0-36.0 g/dL Red Cell Distribution Width 31.6 H 11.8-14.3 % Platelet Count 592 H 140-450 10^3/uL Mean Platelet Volume 7.7 6.9-10.8 fL Neutrophils (%) (Auto) 37.0-80.0 % Lymphocytes (%) (Auto) 10.0-50.0 % Monocytes (%) (Auto) 0.0-12.0 % Eosinophils (%) (Auto) 0.0-7.0 % Basophils (%) (Auto) 0.0-2.0 % Neutrophils # (Auto) 1.6-8.6 10 ^3/uL Lymphocytes # (Auto) 0.4-5.4 10 ^3/uL Monocytes # (Auto) 0-1.3 10 ^3/uL Differential Total Cells Counted Pending Neutrophils % (Manual) Pending Band Neutrophils % (Manual) Pending Lymphocytes % (Manual) Pending Monocytes % (Manual) Pending Eosinophils % (Manual) Pending Basophils % (Manual) Pending Metamyelocytes % (manual) Pending Myelocytes % (Manual) Pending Promyelocytes % (Manual) Pending Blast Cells % (Manual) Pending Reactive Lymphocytes Pending Platelet Estimate Pending Sodium Level 144 136-145 mmol/L Potassium Level 4.4 3.5-5.1 mmol/L Chloride Level 105 98-107 mmol/L Carbon Dioxide Level 29 20-31 mmol/L Anion Gap 10 5-15 Blood Urea Nitrogen 34 H 9-23 mg/dL Creatinine 1.10 H 0.550-1.02 mg/dL Glomerular Filtration Rate Calc 49 >90 mL/min BUN/Creatinine Ratio 30.9 H 10.0-20.0 Serum Glucose 100 74-106 mg/dL Calcium Level 9.6 8.7-10.4 mg/dL 85-year-old female presents here for hip replacement to be done in 1-05/[address] Francisco Haile will be performing the surgery. He asked her to come to the ER today for medical clearance and to be admitted. This time patient has no complaints. She is unable to ambulate due to her hip. At this time hospitalist team has been contacted for admission. I have ordered basic labs including a CBC and BMP which are largely within normal limits except for slightly high BUN and creatinine for her age. Time of 1ST Reevaluation: 14:41 Reevaluation 1ST: Unchanged Patient Education/Counseling: Diagnosis, Treatment, Prognosis Family Education/Counseling: Diagnosis, Treatment, Prognosis SEPSIS Sepsis Screen Date sepsis recognized/suspect: Apr 21, 2025 Time Sepsis recognized/suspect: 1249 Recent Procedure: No On Antibiotic Therapy: No Respiratory Rate >20: No Heart Rate >90: No Temp<36 C (96.8 F) or >38.3 C: No SBP <90 or MAP <65 mmHG: No New Acute Mental Status Change: No Is the patient on CPAP, BIPAP,: No Physician Orders Complete Blood Count (04/21/25 12:53) Electrocardigram (04/21/25 12:53) Troponin-I Hs (04/21/25 13:53) Manual Differential (04/21/25 13:08) Vital Signs Date Time Temp Pulse Resp B/P (MAP) Pulse Ox O2 Delivery O2 Flow Rate FiO2 04/21/25 12:46 97.2 62 18 94/56 100 97.2 Laboratory Tests Test 04/21/25 13:08 White Blood Count 10.1 10^3/uL (4.4-10.8) Departure 1 Departure Time of Disposition: 14:42 Impression: Primary Impression: Hip pain, right Additional Impression: Hip fracture, right Qualified Codes: S72.001A - Fracture of unspecified part of neck of right femur, initial encounter for closed fracture Disposition: ADMITTED INPATIENT Condition: Fair Critical Care Note Critical Care Time?: No Stability Stability form required: No I personally scribed for BRANDON ROQUE MD ([email or web address]) on 04/21/25 at 13:08. Electronically submitted by Sandhya Yanes ([facility]). I personally scribed for BRANDON ROQUE MD ([email or web address]) on 04/21/25 at 14:41. Electronically submitted by Sandhya Yanes ([facility]). BRANDON ROQUE MD Apr 21, 2025 13:08
[2025-04-21 13:27] LABS: Hematocrit 29.4 % (36.0-46.0); Mean Corpuscular Hemoglobin 30.4 pg (28.0-32.0)
[2025-04-21 13:29] LABS: Chloride 105 mmol/L (98-107); Hemoglobin 9.5 g/dL (12.2-16.2); Mean Corpuscular Volume 93.7 fL (80.0-100.0); Potassium 4.4 mmol/L (3.5-5.1); Sodium 144 mmol/L (136-145)
[2025-04-21 13:30] LABS: Anion Gap 10 (5-15); Carbon Dioxide 29 mmol/L (20-31)
[2025-04-21 13:31] LABS: Calcium 9.6 mg/dL (8.7-10.4)
[2025-04-21 13:35] LABS: BUN/Creatinine Ratio 30.9 (10.0-20.0); Glucose 100 mg/dL (74-106)
[2025-04-21 13:53] LABS: Blood Urea Nitrogen 34 mg/dL (9-23)
[2025-04-21 14:49] LABS: Anisocytosis Marked; Nucleated Red Blood Cells % 2.0 %; Total Cells Counted 100.0 (100)
[2025-04-21 15:02] LABS: Ovalocytes MODERATE
[2025-04-21] MEDS ORDERED: DOCUSATE SOD 100 MG CAP PO PRN (21:15)
[2025-04-21] MEDS ORDERED: NITROGLYCERIN 0.4 MG SL TAB SL PRN (21:15)
[2025-04-21] MEDS ORDERED: ONDANSETRON HCL 4 MG/2 ML VIAL IV PRN (21:15)
[2025-04-21] MEDS ORDERED: MORPHINE SULFATE INJ 2 MG/ml SYRG IV PRN (21:15)
--- NOTE | 2025-04-21 21:17 | DVHHP2 ---
History of Present Illness Reason for Visit: Hip pain, right History of Present Illness The patient is a 85-year-old female with past medical history of hypertension presented to [facility] ED for evaluation of medical clearance. As reported by daughter, patient is to be admitted for right sided hip surgery on Wednesday April 23, 2025 status post mechanical fall at home, sent by Dr. Gandhi for the hip replacement. Patient was seen and evaluated in the ED, laboratory data shows WBC 10.1, hemoglobin 9.5, hematocrit 29.4, platelets 592, sodium 144, potassium 4.4, BUN 34, creatinine 0.10, GFR 49, glucose 100, calcium 9.6, troponin six, blood pressure 113/75, heart rate 78, temperature 98.2 F, O2 saturation 95% on room air. Please see medication orders section in the computer. On my assessment, patient denied chest pain, no headache, dizziness, diaphoresis, shortness of breaths, no abdominal pain, diarrhea, nausea, vomiting, fever, no chills. Patient was admitted for further evaluation and medical management. Past Medical History Hypertension Past Surgical History Hysterectomy Family History Reviewed, noncontributory to the management of this case. Past Social History The patient lives at home, denies smoking, alcohol or illicit drugs abuse. Review of Systems Constitutional: Yes: Weakness; No: Fever, Chills, Sweats, Malaise, Other Eyes: No: Pain, Vision change, Conjunctivae inflammation, Eyelid inflammation, Other, Redness ENT: No: Ear pain, Ear discharge, Nose pain, Nose discharge, Nose congestion, Mouth pain, Mouth swelling, Throat pain, Throat swelling, Other Respiratory: No: Cough, Dry, Shortness of breath, SOB with excertion, Wheezing, Hemoptysis, Pleuritic Pain, Sputum, Wheezing, Other Cardiovascular: No: Chest Pain, Palpitations, Orthopnea, Paroxysmal Noc. Dyspnea, Edema, Lt Headedness, Other Gastrointestinal: No: Nausea, Vomiting, Abdominal Pain, Diarrhea, Constipation, Melena, Hematochezia, Other Genitourinary: No Dysuria, No Frequency, No Incontinence, No Hematuria, No Retention, No Other Musculoskeletal: other (Hip pain); No: neck pain, shoulder pain, arm pain, back pain, hand pain, leg pain, foot pain Skin: No: Rash, Lesions, Jaundice, Bruising, Other Neurological: No: Weakness, Numbness, Incoordination, Change in speech, Confusion, Seizures, Other Allergies: Coded Allergies: Memantine (Verified Allergy, Severe, 08/20/23) Exam Vital Signs Vital Signs Date Time Temp Pulse Resp B/P (MAP) Pulse Ox O2 Delivery O2 Flow Rate FiO2 04/21/25 17:46 98.2 78 16 113/75 (88) 95 98.2 General Appearance: Alert, Oriented X3, Cooperative, No acute distress HEENT: Atraumatic, PERRLA, EOMI, Mucous membr. moist/pink Respiratory: Normal air movement Cardiovascular: Regular rate, Normal S1, Normal S2, No murmurs Abdominal: Normal bowel sounds, Soft, No tenderness, No hepatospenomegaly, No masses Extremities: No clubbing, No cyanosis, No edema, Normal pulses, No tenderness/swelling Skin: No rashes, No significant lesion Neuro: Normal speech, Normal tone, Sensation intact, Cranial nerves 3-12 NL, Reflexes 2+, Other (Generalized weakness) Psych/Mental Status: Mental status NL, Mood NL Labs/Xrays Labs Test 04/21/25 14:06 04/21/25 13:08 Range/Units Troponin I High Sensitivity 5 </=34 ng/L White Blood Count 10.1 4.4-10.8 10^3/uL Red Blood Count 3.13 L 4.0-5.20 10^6/uL Hemoglobin 9.5 L 12.2-16.2 g/dL Hematocrit 29.4 L 36.0-46.0 % Mean Corpuscular Volume 93.7 80.0-100.0 fL Mean Corpuscular Hemoglobin 30.4 28.0-32.0 pg Mean Corpuscular Hemoglobin Concent 32.5 32.0-36.0 g/dL Red Cell Distribution Width 31.6 H 11.8-14.3 % Platelet Count 592 H 140-450 10^3/uL Mean Platelet Volume 7.7 6.9-10.8 fL Neutrophils (%) (Auto) 37.0-80.0 % Lymphocytes (%) (Auto) 10.0-50.0 % Monocytes (%) (Auto) 0.0-12.0 % Eosinophils (%) (Auto) 0.0-7.0 % Basophils (%) (Auto) 0.0-2.0 % Neutrophils # (Auto) 1.6-8.6 10 ^3/uL Lymphocytes # (Auto) 0.4-5.4 10 ^3/uL Monocytes # (Auto) 0-1.3 10 ^3/uL Differential Total Cells Counted 100.0 100 Neutrophils % (Manual) 37 37.0-80.0 Band Neutrophils % (Manual) 2 Lymphocytes % (Manual) 9 L 10.0-50.0 Monocytes % (Manual) 1 0-12 Eosinophils % (Manual) 51 H 0-7 Basophils % (Manual) 0 0.0-2.0 Metamyelocytes % (manual) 0 Myelocytes % (Manual) 0 Promyelocytes % (Manual) 0 Blast Cells % (Manual) 0 Nucleated Red Blood Cells 2.0 % Reactive Lymphocytes 0 Platelet Estimate Increased Poikilocytosis (manual) Slight Anisocytosis (manual) Marked Target Cells Few Ovalocytes Moderate Schistocytes Moderate Sodium Level 144 136-145 mmol/L Potassium Level 4.4 3.5-5.1 mmol/L Chloride Level 105 98-107 mmol/L Carbon Dioxide Level 29 20-31 mmol/L Anion Gap 10 5-15 Blood Urea Nitrogen 34 H 9-23 mg/dL Creatinine 1.10 H 0.550-1.02 mg/dL Glomerular Filtration Rate Calc 49 >90 mL/min BUN/Creatinine Ratio 30.9 H 10.0-20.0 Serum Glucose 100 74-106 mg/dL Calcium Level 9.6 8.7-10.4 mg/dL SEPSIS Sepsis Screen Date sepsis recognized/suspect: Apr 21, 2025 Time Sepsis recognized/suspect: 1249 Recent Procedure: No On Antibiotic Therapy: No Respiratory Rate >20: No Heart Rate >90: No Temp<36 C (96.8 F) or >38.3 C: No SBP <90 or MAP <65 mmHG: No New Acute Mental Status Change: No Is the patient on CPAP, BIPAP,: No Physician Orders Amlodipine Tablet (Norvasc Tablet) (04/22/25 10:00) Admit (04/21/25 21:11) Allergies (04/21/25 21:11) Code Status (04/21/25 21:11) Sodium Chloride Lock (Saline Lock Ns) (04/21/25 22:00) Oxygen Per Hour (04/21/25 21:11) Hydrocodone-Acet 5/325mg Tab ([place] 5/32 (04/21/25 21:15) Ondansetron Hcl (Zofran) (04/21/25 21:15) Docusate Sodium Capsule (Colace Capsule) (04/21/25 21:15) Fall Risk Precautions In Place QSHIFT (04/21/25 21:11) Complete Blood Count (04/22/25 04:00) Comprehensive Metabolic Panel (04/22/25 04:00) Cardiac Diet-2gna,Lofat,Lochol (04/22/25 Breakfast) Condition: Serious (04/21/25 21:11) Acetaminophen Tablet (Tylenol Tablet) (04/21/25 21:15) Maintain Bed Rest (04/21/25 21:11) Sequential Compression Device (04/21/25 ) Nitroglycerin Sublingual (Ntrostat Subli (04/21/25 21:15) Morphine Sulfate Injection (04/21/25 21:15) Stat Ekg For Chest Pain (04/21/25 21:11) Notify Md Of Changes From Base (04/21/25 21:11) Cold Storage Superintendent For 24 Hours (04/21/25 21:11) Emergency Dysrhythmia Protocol (04/21/25 21:11) Rhythm Strips Once Every Shift (04/21/25 21:11) Oxygen By Nasal Cannula (04/21/25 21:11) Vital Signs Date Time Temp Pulse Resp B/P (MAP) Pulse Ox O2 Delivery O2 Flow Rate FiO2 04/21/25 17:46 98.2 78 16 113/75 (88) 95 98.2 Laboratory Tests Test 04/21/25 13:08 White Blood Count 10.1 10^3/uL (4.4-10.8) Assessment/Plan Assessment/Plan Hip pain, right Hip fracture, right Thrombocytosis Fracture of unspecified part of neck of right femur, initial encounter for closed fracture Generalized weakness Plan 1. Admit to telemetry unit 2. Breathing treatment 3. Pain control management 4. Management of fluids and electrolytes 5. Consultation for orthopedic surgery 6. Diagnostic tests chest x-ray 7. DVT prophylaxis-on SCDs 8. Repeat labs CBC, CMP in a.m. 9. Continue with current medical management 10. Treatment plan discussed with patient and RN. Patient verbalized understanding. Plan discussed with: Patient, Other (RN) My Orders Orders - GISELL ALVARADO DNP Procedure Category Date Status Time Amlodipine Tablet PHA 04/22/25 Transmitted (Norvasc Tablet) 10:00 Admit ADMIT 04/21/25 Transmitted 21:11 Allergies PRAVEEN 04/21/25 In Process 21:11 Code Status CODE 04/21/25 Transmitted 21:11 Sodium Chloride Lock PHA 04/21/25 Transmitted (Saline Lock Ns) 22:00 Oxygen Per Hour RT 04/21/25 Transmitted 21:11 Hydrocodone-Acet PHA 04/21/25 Transmitted 5/325mg Tab ([place] 21:15 Ondansetron Hcl PHA 04/21/25 Transmitted (Zofran) 21:15 Docusate Sodium PHA 04/21/25 Transmitted Capsule (Colace 21:15 Fall Risk Precautions PRAVEEN 04/21/[address] 21:11 Complete Blood Count LAB 04/22/25 Verified 04:00 Comprehensive LAB 04/22/25 Verified Metabolic Panel 04:00 Cardiac DIET 04/22/25 Transmitted Diet-2gna,Lofat,Lochol Breakfast Condition: Serious PRAVEEN 04/21/25 In Process 21:11 Acetaminophen Tablet PHA 04/21/25 Transmitted (Tylenol Tablet) 21:15 Maintain Bed Rest PRAVEEN 04/21/25 In Process 21:11 Sequential PRAVEEN 04/21/25 In Process Compression Device Nitroglycerin [facility] 04/21/25 Transmitted Sublingual (Ntrostat 21:15 Morphine Sulfate PHA 04/21/25 Transmitted Injection 21:15 Stat Ekg For Chest PRAVEEN 04/21/25 In Process Pain 21:11 Notify Md Of Changes [facility] 04/21/25 In Process From Base 21:11 Cold Storage Superintendent For PRAVEEN 04/21/25 In Process 24 Hours 21:11 Emergency Dysrhythmia [facility] 04/21/25 In Process Protocol 21:11 Rhythm Strips Once [facility] 04/21/25 In Process Every Shift 21:11 Oxygen By Nasal RT 04/21/25 Transmitted Cannula 21:11 Problem List: (1) Hip pain, right (2) Hip fracture, right (3) Thrombocytosis (4) Fracture of unspecified part of neck of right femur, initial encounter for closed fracture (5) Generalized weakness Date of Service: Apr 21, 2025 Billing Provider: GISELL ALVARADO DNP Common Visit Codes: [id number] INP/OBS CARE (HIGH) GISELL ALVARADO DNP Apr 21, 2025 21:17
[2025-04-21 22:32] VITALS: RESP 19; O2SAT 98
[2025-04-21] MEDS: SODIUM CHLOR 0.9% PF (SALINE LOCK) 10ML VIAL/SYR IV SCH (22:49)
[2025-04-21] MEDS ORDERED: SILD50TA PO (23:40)
[2025-04-21] MEDS ORDERED: CARV3.1240 PO (23:40)
[2025-04-21] MEDS ORDERED: RIVA20TA PO (23:41)
[2025-04-21] MEDS ORDERED: POTA-180 PO (23:42)
[2025-04-21] MEDS ORDERED: FER325T PO (23:42)
[2025-04-21] MEDS ORDERED: CHOL20007 PO (23:44)
[2025-04-21] MEDS ORDERED: ASPI81CH59 PO (23:45)
[2025-04-21] MEDS ORDERED: ACET300T51 PO (23:46)
[2025-04-21] MEDS ORDERED: PRE1T PO (23:46)
[2025-04-22] VITALS (7 sets, daily range): BP systolic 101–132; BP diastolic 63–86; PULSE 80–93; RESP 14–17; TEMP 97.7–98.8; O2SAT 91–98
[2025-04-22] MEDS: HYDROcodone-ACET 5/325MG TAB PO PRN (00:21)
[2025-04-22 05:58] LABS: Hematocrit 27.2 % (36.0-46.0); Hemoglobin 9.0 g/dL (12.2-16.2); Mean Corpuscular Hemoglobin 30.5 pg (28.0-32.0); Mean Corpuscular Volume 91.9 fL (80.0-100.0)
[2025-04-22 05:59] LABS: Alanine Aminotransferase 12 U/L (7-40); Albumin 3.4 g/dL (3.2-4.8); Alkaline Phosphatase 81 U/L (46-116); Anion Gap 11 (5-15); BUN/Creatinine Ratio 36.7 (10.0-20.0); Calcium 8.9 mg/dL (8.7-10.4); Carbon Dioxide 27 mmol/L (20-31); Chloride 106 mmol/L (98-107); Glucose 83 mg/dL (74-106); Potassium 3.9 mmol/L (3.5-5.1); Sodium 144 mmol/L (136-145); Total Protein 6.1 g/dL (5.7-8.2)
[2025-04-22 06:00] LABS: Bilirubin, Total 0.5 mg/dL (0.2-1.0); Blood Urea Nitrogen 36 mg/dL (9-23)
[2025-04-22 07:39] LABS: Anisocytosis Marked; Nucleated Red Blood Cells % 5.0 %; Total Cells Counted 100.0 (100)
[2025-04-22 07:49] LABS: Tear Drop Cells FEW
[2025-04-22 07:50] LABS: Ovalocytes MODERATE
[2025-04-22] MEDS: ACETAMINOPHEN 325 MG TAB PO PRN (08:49)
[2025-04-22] MEDS: ENOXAPARIN SOD 40 MG/0.4 ML SYRINGE SC SCH (10:00)
[2025-04-22] MEDS: FERROUS SULFATE 325mg EC TAB PO SCH (10:00)
[2025-04-22 10:07] LABS: Magnesium 2.3 mg/dL (1.6-2.6)
--- NOTE | 2025-04-22 11:21 | DVH ---
vilateral HIP RADIOGRAPH. CLINICAL INDICATION: Hip fracture TECHNIQUE: 4 views of the bilatearl hip were obtained. FINDINGS: Post surgical changes bilateral femurs with 3 surgical screws right proximal femur and intramedullar savanna and screws in left femur. There is no evidence of fracture, subluxation or dislocation.The alignment is within normal limits.The bony mineralization is normal.No radiopaque foreign body is identified. IMPRESSION: 1. No evidence of acute bony injury.
[2025-04-22 11:34] LABS: INR 1.09 (0.9-1.15); Partial Thromboplastin Time 26.8 SEC (24.5-34.5); Prothrombin Time 11.5 sec (9.3-11.8)
--- NOTE | 2025-04-22 12:03 | DVH ---
CLINICAL INDICATION: HIP FX TECHNIQUE: XY R KNEE 3V XRAY Comparison: XR KNEE LEFT 3 VIEW on DOS: 11/08/24 FINDINGS: XR KNEE LEFT 3 VIEW on DOS Bones: Joint space chondrocalcinosis is present. Alignment: No acute fracture or dislocation. Joint Spaces: Moderate to severe lateral degenerative joint space narrowing. Moderate patellofemoral degenerative joint space narrowing. Soft Tissues: No significant soft tissue abnormality. IMPRESSION: 1. No acute fracture or dislocation. 2. Degenerative changes.
--- NOTE | 2025-04-22 12:43 | DVH ---
CLINICAL INFORMATION: Coronary artery disease. TECHNIQUE: Single AP portable chest radiograph was obtained. COMPARISON: XY CHEST PORTABLE on DOS: 12/03/24, XR CHEST 1 VIEW on DOS: 08/11/24, XR CHEST 1 VIEW on DOS: 06/24/24 FINDINGS: Lungs: Scattered areas of subsegmental atelectasis. No focal consolidation. No pneumothorax or pleural effusion. Cardiac: Mild cardiomegaly. Pulmonary vasculature: Unremarkable. Mediastinum/alexandra: Unremarkable. Bones: No acute osseous abnormality identified. Other: No other significant findings. IMPRESSION: Mild cardiomegaly. Otherwise, no evidence of acute disease in the chest.
--- NOTE | 2025-04-22 16:18 | DVHPNRES ---
Progress Note Date Seen: Apr 22, 2025 Resident Creating Document: PETE ESCOBEDO Medical Necessity Reason Pt with a Central, PICC or Fol: No Subjective Review of Systems Gabriela Lunsford is a 85-year-old female patient who presents to the ED with chief complaint of requirement of admission due to elective right total hip replacement surgery (patient has rods placed which have to be exchange) with previous medical clearance. Patient was seen the outpatient clinic by Dr. Gaspar who completed stress test. Patient denies any symptoms. Past medical history: Hypertension, bilateral hip fracture secondary to mechanical fall status postop. Surgical history: Bilateral hip fracture repair with rods Family history: Noncontributory Social history: Lives in [place] with family (next of kin is daughter Frida). Denies tobacco, alcohol and other drug abuse Allergies: Memantine Home medication: Patient seen and examined at bedside. Currently has no new complaints. Obtain pelvis, right hip and knee x-ray which showed no acute findings. Dr. Trammell consulted Cardiology, changed consult to Dr. Gaspar since he has the access registrar as follows patient as outpatient in completed stress test recently. Objective vital signs Vital Sign Date Time Temp Pulse Resp B/P (MAP) Pulse Ox O2 Delivery O2 Flow Rate FiO2 04/22/25 07:30 90 17 94 Nasal Cannula* 2 28 04/22/25 04:12 98.6 104/63 (77) 98.6 Total Intake and Output 04/21/25 04/21/25 04/22/25 15:00 23:00 07:00 Intake Total 250 ml Output Total 0 ml Balance 250 ml medications Current Medications Medications Dose Ordered Sig/Santiago Route Start Time Stop Time Status Last Admin Dose Admin Amlodipine Besylate 5 mg DAILY PO 04/22/25 10:00 Sodium Chloride 10 ml Q8HR IV 04/21/25 22:00 04/22/25 06:55 10 ML Acetaminophen/ Hydrocodone Bitart 1 tab Q4HP PRN PO 04/21/25 21:15 04/22/25 00:21 1 TAB Ondansetron HCl 4 mg Q4HP PRN IV 04/21/25 21:15 Docusate Sodium 100 mg BIDPRN PRN PO 04/21/25 21:15 Acetaminophen 650 mg Q6HP PRN PO 04/21/25 21:15 04/22/25 08:49 650 MG Enoxaparin Sodium 40 mg DAILY SC 04/22/25 10:00 Ferrous Sulfate 325 mg DAILY PO 04/22/25 10:00 Examination Patient lying in bed, in no acute distress General: Lucid, frail, afebrile, mucosae are moist Cardiovascular: Normal S1 and S2. No murmurs, gallops or rubs Respiratory: Normal ventilation mechanics. Clear lung sounds on auscultation Abdomen: Soft, nontender, no organomegaly, normal bowel sounds MSK/skin: Mobilizes 4 limbs. Skin is dry and warm Neurological: Oriented in 3 spheres. No motor no sensitive deficits. 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 Troponin negative x2 (6-5) Last echocardiogram completed was on 11/2024 which showed LVEF 55-60%, mild LVH, mild diastolic dysfunction, RV mildly dilated with normal function, moderate TR and moderate pulmonary hypertension (RVSP 55-60 mmHg) Ordered and a complement, HIV, hepatitis panel, stool studies and ova/parasites. Cardiology consulted (Dr Gaspar), patient had completed stress test in the outpatient setting, pending results. 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 Alcocer, patient and nurses: Admitted to telemetry. Pending cardiac clearance (Dr. Gaspar completed stress test as outpatient). Ordered complementary workup for hypereosinophilia. Plan discussed with: Patient, Other (Nurses) My Orders My Orders Orders - PETE ESCOBEDO Procedure Category Date Status Time Enoxaparin Sodium PHA 04/22/25 In Process (Lovenox) 10:00 Ferrous Sulfate Tablet PHA 04/22/25 In Process 10:00 L Hip Complete Xray XY 04/22/25 Resulted 09:39 Ova & Parasite Exam MARVIN 04/22/25 Uncollected 09:44 Urinalysis LAB 04/22/25 Logged 09:46 Drug Screen LAB 04/22/25 Logged 09:46 R Hip Complete Xray XY 04/22/25 Resulted 09:39 R Knee 3v Xray XY 04/22/25 Resulted 11:16 * Cardiology Consult CONS 04/22/25 Transmitted 14:47 Visit Coding STANDARD RES Billing Provider: HUMBERTO ALCOCER MD Date of Service if different f: Apr 22, 2025 Common Visit Codes: [id number] INP/OBS CARE(HIGH) Secondary Visit Codes: [id number] CARE PLAN 30 MINUTES PETE ESCOBEDO RESIDENT Apr 22, 2025 16:18
[2025-04-22 23:41] LABS: Urine Protein, UAD Negative (Negative)
[2025-04-22 23:47] LABS: Amphetamine Screen, Urine Neg (NEGATIVE); Barbiturate Scree,Urine Neg (NEGATIVE); Benzodiazephine Screen, Urine Neg (NEGATIVE); Cannabinoid Screen, Urine Neg (NEGATIVE); Cocaine Screen, Urine Neg (NEGATIVE); Opiate Scree,Urine Neg (NEGATIVE); Phencyclidine Screen, Urine Neg (NEGATIVE)
[2025-04-23] VITALS (8 sets, daily range): BP systolic 91–125; BP diastolic 52–83; PULSE 73–104; RESP 16–19; TEMP 97–98.4; O2SAT 96–99
[2025-04-23] MEDS: LORATADINE 10 MG TAB PO ONE (05:15)
[2025-04-23 07:04] LABS: Hematocrit 30.9 % (36.0-46.0); Hemoglobin 10.0 g/dL (12.2-16.2); Mean Corpuscular Hemoglobin 30.4 pg (28.0-32.0); Mean Corpuscular Volume 94.4 fL (80.0-100.0)
[2025-04-23 07:15] LABS: Potassium 4.8 mmol/L (3.5-5.1); Sodium 141 mmol/L (136-145)
[2025-04-23 07:16] LABS: Anion Gap 8 (5-15); Calcium 9.2 mg/dL (8.7-10.4); Carbon Dioxide 25 mmol/L (20-31)
[2025-04-23 07:21] LABS: BUN/Creatinine Ratio 32.0 (10.0-20.0); Glucose 84 mg/dL (74-106)
[2025-04-23 07:22] LABS: Blood Urea Nitrogen 31 mg/dL (9-23); Chloride 108 mmol/L (98-107)
--- NOTE | 2025-04-23 08:18 | DVHINCON2 ---
Date of service: Apr 22, 2025 Reason for Consultation Right hip pain , hx of ORIF with outside provider History of Present Illness 85 yo F sp ORIF right hip a few months ago with outside provider with continued pain/swelling/inability to bear weight on right leg. Patient unable to bear weight onto that side. No cp/sob/abd pain/nausea/vomiting. Past Medical History osteoporosis Family History: Patient reports no known family medical history. Allergies: Coded Allergies: Memantine (Verified Allergy, Severe, 08/20/23) Home Meds Active Scripts Calamine (Calamine) 1 Lot Lot, 1 LOT EX BIDPRN PRN for 10 Days, #1 BOTTLE Prov:MANA LUX RESIDENT 12/06/24 Meloxicam (Meloxicam) 7.5 Mg Tab, 7.5 MG PO DAILY PRN, #30 TAB Prov:TATE PATEL MIXER DIAMOND POWDER 08/20/23 Reported Medications Acetaminophen W/ Codeine (Acetaminophen/Codeine) 1 Tab Tab, 1 TAB PO TID, #90 TAB 04/21/25 Prednisone (PREDNISONE) 1 Mg Tb, 5 MG PO DAILY, TAB 04/21/25 Aspirin (Aspirin Low Dose) 81 Mg Chw, 1 TAB PO DAILY, #30 TAB 3 Refills 04/21/25 Cholecalciferol (VITAMIN D3) 2,000 Unit Tab, 50 MCG PO DAILY, TAB 04/21/25 Ferrous Sulfate (FERROUS SULFATE) 325 Mg Tb, 1 TAB PO DAILY, #30 TAB 3 Refills 04/21/25 Potassium Chloride (Potassium Chloride ER) 20 Meq Tab, 20 MEQ PO DAILY, TAB 04/21/25 Rivaroxaban (XARELTO) 20 Mg Tab, 2.5 MG PO BID, TAB 04/21/25 Carvedilol (Carvedilol) 3.125 Mg Tab, 1 TAB PO BID, #60 TAB 3 Refills 04/21/25 Sildenafil Citrate (Viagra) 50 Mg Tab, 25 MG PO BID, TAB 04/21/25 Amlodipine Besylate (Amlodipine Besylate) 10 Mg Tab, 1 TAB PO DAILY 11/13/24 Hydroxyzine Hcl (Hydroxyzine Hcl) 25 Mg Tab, 1 TAB PO HS 11/13/24 Bumetanide (Bumetanide) 1 Mg Tab, 1 TAB PO BID 11/13/24 Alendronate Sodium (Alendronate Sodium) 70 Mg Tab, 1 TAB PO QWEEKLY 11/13/24 Prednisone (Prednisone) 5 Mg Tab, 1 TAB PO DAILY 11/13/24 Current Medications Current Medications Medications (Trade) Dose Ordered Sig/Santiago Route PRN Reason Start Time Stop Time Status Last Admin Amlodipine Besylate (Norvasc Tablet) 5 mg DAILY PO 04/22/25 10:00 Enoxaparin Sodium (Lovenox) 40 mg DAILY SC 04/22/25 10:00 04/22/25 10:00 Ferrous Sulfate 325 mg DAILY PO 04/22/25 10:00 04/22/25 10:00 Vital Signs Vital Signs Date Time Temp Pulse Resp B/P (MAP) Pulse Ox O2 Delivery O2 Flow Rate FiO2 04/23/25 05:00 98.4 85 19 125/83 (97) 96 98.4 04/22/25 20:00 Room Air* 0 21 Labs/Diagnostic Data Labs Test 04/23/25 06:46 04/22/25 23:10 04/22/25 20:57 04/22/25 20:17 Range/Units White Blood Count 12.4 #H 4.4-10.8 10^3/uL Red Blood Count 3.27 L 4.0-5.20 10^6/uL Hemoglobin 10.0 L 12.2-16.2 g/dL Hematocrit 30.9 #L 36.0-46.0 % Mean Corpuscular Volume 94.4 80.0-100.0 fL Mean Corpuscular Hemoglobin 30.4 28.0-32.0 pg Mean Corpuscular Hemoglobin Concent 32.2 32.0-36.0 g/dL Red Cell Distribution Width 31.0 H 11.8-14.3 % Platelet Count 294 140-450 10^3/uL Mean Platelet Volume 6.8 L 6.9-10.8 fL Neutrophils (%) (Auto) 37.0-80.0 % Lymphocytes (%) (Auto) 10.0-50.0 % Monocytes (%) (Auto) 0.0-12.0 % Eosinophils (%) (Auto) 0.0-7.0 % Basophils (%) (Auto) 0.0-2.0 % Neutrophils # (Auto) 1.6-8.6 10 ^3/uL Lymphocytes # (Auto) 0.4-5.4 10 ^3/uL Monocytes # (Auto) 0-1.3 10 ^3/uL Sodium Level 141 136-145 mmol/L Potassium Level 4.8 3.5-5.1 mmol/L Chloride Level 108 H 98-107 mmol/L Carbon Dioxide Level 25 20-31 mmol/L Anion Gap 8 5-15 Blood Urea Nitrogen 31 H 9-23 mg/dL Creatinine 0.97 0.550-1.02 mg/dL Glomerular Filtration Rate Calc 57 >90 mL/min BUN/Creatinine Ratio 32.0 H 10.0-20.0 Serum Glucose 84 74-106 mg/dL Calcium Level 9.2 8.7-10.4 mg/dL Urine Color Light-yellow Yellow Urine Clarity Clear Clear Urine pH 6.5 5.0-9.0 Urine Specific Edwards 1.024 1.001-1.035 Urine Protein Negative Negative Urine Ketones Negative Negative Urine Blood Negative Negative /uL Urine Nitrite Negative Negative Urine Bilirubin Negative Negative Urine Urobilinogen Normal Negative mg/dL Urine Leukocyte Esterase 1+ Negative /uL Urine RBC None seen 0 - 4 /hpf Urine Microscopic WBC 7 H 0-5 /HPF Urine Squamous Epithelial Cells Few <5 /hpf Urine Bacteria None seen None Seen /hpf Urine Glucose Normal Normal mg/dL Urine Opiates Screen Neg NEGATIVE Urine Fentanyl Screen Neg NEGATIVE Urine Barbiturates Screen Neg NEGATIVE Urine Phencyclidine Screen Neg NEGATIVE Urine Amphetamines Screen Neg NEGATIVE Urine Benzodiazepines Screen Neg NEGATIVE Urine Cocaine Screen Neg NEGATIVE Urine Cannabinoids Screen Neg NEGATIVE Stool for White Cells None seen HIV (1&2) Antibody Negative Negative Test 04/22/25 10:45 04/22/25 05:13 04/21/25 14:06 Range/Units Prothrombin Time 11.5 9.3-11.8 sec Prothrombin Time INR 1.09 0.9-1.15 Activated Partial Thromboplast Time 26.8 24.5-34.5 SEC Nucleated Red Blood Cells 5.0 % Poikilocytosis (manual) Slight Anisocytosis (manual) Marked Target Cells Few Tear Drop Cells Few Ovalocytes Moderate Schistocytes Moderate Hemoglobin A1c 6.1 H <5.7 % A1C Phosphorus Level 4.2 2.4-5.1 mg/dL Magnesium Level 2.3 1.6-2.6 mg/dL Total Bilirubin 0.5 0.2-1.0 mg/dL Aspartate Amino Transferase (AST) 25 13-40 U/L Alanine Aminotransferase (ALT) 12 7-40 U/L Alkaline Phosphatase 81 46-116 U/L Total Protein 6.1 5.7-8.2 g/dL Albumin 3.4 3.2-4.8 g/dL Vitamin B12 Level 539 211-911 pg/mL Vitamin D 25-Hydroxy 52.2 30.0-100 ng/mL Thyroid Stimulating Hormone (TSH) 1.76 0.55-4.78 uIU/mL Troponin I High Sensitivity 5 </=34 ng/L Plan/Recommendation 85 yo F with failed ORIF right hip with right hip femoral neck fracture 1. Discussed hardware removal with conversion to right total hip arthroplasty as patient continues to be wheelchair bound and losing quality of life - Failed CRPP of hip -- patient will require arthroplasty surgery 2. Risk benefits options and alternatives reviewed in depth. RIsks include but not exclusive to bleeding infection nerve injury hardware failure leg length discrepancy blood clots cardiac and pulmonary complications dislocation amputation and . Patient and family understand the morbidity and mortality of surgery and wish to proceed plan for right hip arthroplasty, hardware removal with Dr. Hernandez/Lazara 3. npo/ivf 4. pain control Plan discussed with: Patient, Daughter YOBANI COTA MD Apr 23, 2025 08:18
[2025-04-23] MEDS: VANCOMYCIN HCL 1000 MG VL ONE (09:08)
[2025-04-23 09:14] LABS: Anisocytosis Marked; Total Cells Counted 100.0 (100)
[2025-04-23] MEDS: TETRACAINE 1% INJ 2 ML VIAL IJ ONE (09:24)
[2025-04-23] MEDS ORDERED: MIDAZOLAM HCL 2MG/2ML 2ml VIAL (1mg/ml) ONE (09:27)
[2025-04-23] MEDS ORDERED: fentaNYL CITRATE 100 MCG/2 ML VL ONE (09:27)
[2025-04-23] MEDS ORDERED: METOCLOPRAMIDE HCL 5MG/ml INJ 2ml VIAL ONE (09:29)
[2025-04-23] MEDS ORDERED: ONDANSETRON HCL 4 MG/2 ML VIAL ONE (09:29)
[2025-04-23] MEDS ORDERED: PROPOFOL 10 MG/ML 20 ML IV ONE (09:30)
--- NOTE | 2025-04-23 09:38 | DVHSR ---
APPROVED REPORT EXAM: Two-dimensional and M-mode echocardiogram with Doppler and color Doppler. Blood Pressure: 125/83 mmHg INDICATION CAD RISK FACTORS Height: 5'2, Weight: 139 DIMENSIONS LVDd 4.7 (3.8-5.7cm) LA (2D) 3.8 (1.9-4.0cm) Aortic Root 2.5 (2.0-3.7cm) LVDs 3.3 (2.5-4.0cm) LA (MM) (1.9-4.0cm) Aortic Cusp Exc 1.8 (1.5-2.0cm) EF (%) 56.0 (55-70%) Rt. Atrium 4.3 (1.9-4.0cm) Asc. Aorta 3.1 cm IVSd 1.0 (0.7-1.1cm) RV (D) (1.8-2.4cm) PWd 1.1 (0.7-1.1cm) Mitral Valve Mitral Mitral Stenosis E wave 0.89m/s MV Mean GR. mmHg A wave 0.97m/s MV Peak GR. mmHg E/A ratio 0.9 2D MVA cm2 DECEL Time 172ms PRESS 1/2 Time ms Aortic Valve Aortic Valve Aortic Stenosis V1 1.36m/s AO Mean GR. 4mmHg V2 1.51m/s AO Peak GR. 9mmHg LVOT Diameter 1.9 (1.8-2.4cm) Doppler ELIZA 2.55cm2 Pulmonic Valve V2 0.93m/s Tricuspid Valve TR Velocity 2.78m/s RVSP 31mmHg Conclusion lvef 60% mild LVH RV enlarged biatrial enlargement moderate to severe tricuspid regurg
[2025-04-23 10:12] LABS: Hepatitis B Surface Antigen Negative (Negative)
[2025-04-23] MEDS: ceFAZolin 2 GM/D5W50ml 50 ML IV ONE (10:15)
[2025-04-23 10:18] LABS: Hepatitis C Antibody Negative (Negative)
[2025-04-23] MEDS: BUPIVACAINE 0.25% INJ 50ML VIAL ONE ×2 (10:39→10:56)
[2025-04-23] MEDS: MORPHINE SULF PF 5 MG/10 ML VIAL ONE (10:39)
[2025-04-23] MEDS: KETOROLAC TROMETH 30 MG/ML 1ML VIAL ONE (10:39)
[2025-04-23] MEDS: TRANEXAMIC ACID 20 ML ONE (10:45)
[2025-04-23] MEDS ORDERED: SODIUM CHLORIDE LOCK 10 ML ONE (10:48)
[2025-04-23] MEDS ORDERED: LIDOCAINE W/ EPINEPHRINE 1% 20ML VIAL ONE (10:59)
[2025-04-23] MEDS ORDERED: ALBUTEROL SULFATE 90 MCG MDI IN ONE (12:00)
[2025-04-23] MEDS ORDERED: hydrALAZINE HCL 20 MG/ML VL IV PRN (13:15)
[2025-04-23] MEDS ORDERED: HYDROmorphone HCL 2 MG/ML VL/or syr IV PRN ×2 (13:15)
[2025-04-23] MEDS ORDERED: METOCLOPRAMIDE HCL 5MG/ml INJ 2ml VIAL IV PRN (13:15)
[2025-04-23] MEDS ORDERED: ONDANSETRON HCL 4 MG/2 ML VIAL IV PRN (13:15)
--- NOTE | 2025-04-23 13:43 | ECG ---
[facility] Test Date: 2025-04-23 Test Time: 03:50:42 Pat Name: KERRY BARRON Department: Room: 0278 Gender: F Research/Program Director: GP : 1940 Requested By: PETE ESCOBEDO Order Number: [id number] Reading MD: David Romero Measurements Intervals [place] Rate: 89 P: 52 NE: 141 QRS: -32 QRSD: 94 T: 49 QT: 358 QTc: 436 Interpretive Statements Sinus rhythm Atrial premature complex Left axis deviation Borderline low voltage, extremity leads Electronically Signed On 04-26-2025 18:25:52 PST by David Romero Please click the below link to view image of tracing.
[2025-04-23] MEDS: ACETAMINOPHEN IV 1000 MG/100ML (10MG/ML) IV ONE (13:57)
--- NOTE | 2025-04-23 14:09 | DVHOP2 ---
Operative Report - 2 Report Details Date: 04/23/25 Preop Diagnosis: Failed Right Femoral Neck/basicervical ORIF Postop Diagnosis: Same Surgeon: John Hernandez MD Anesthesiologist: Chaim MESA Anesthesia: Local, Regional Consent: The patient was informed of the risks and benefits of the procedure. These include but are not limited to complications of anesthesia, postoperative infection, incomplete relief of symptoms, recurrence of symptoms, damage to blood vessels, nerves and tendons, deep venous thrombosis, pulmonary embolism and possible need for repeat surgery in the future. Name of Procedure Performed Complex Hip Hemiarthroplasty using a redapt, diaphyseal engaging stem, cable. Removal of hardware, application of wound vac Procedure Details Procedure Details: After preoperative verification and anesthesia induction, the patient was positioned in the lateral decubitus position with appropriate padding. The operative site was prepped and draped in the standard sterile fashion. A new incision was made to optimize exposure, as the previous incision could not be utilized. Dissection was carried through subcutaneous tissue and fascia. A posterior greater trochanter resection osteotomy was performed to facilitate access to the proximal femur and hardware. The three previously placed screws were identified and carefully removed. Attention was then directed to the femur. A cable was placed around the proximal femur to provide additional stability and prevent fracture propagation as she had calcar bone loss from her varus collapse. We then locations and cannulated the femoral canal, which was incrementally reamed up to 17 mm to accommodate the Redapt diaphyseal engaging stem. The stem was trailed and then implanted for stable diaphyseal fixation. . The hip was reduced, and stability and leg length were assessed and confirmed. The wound was irrigated thoroughly and hemostasis was achieved. The capsule and short external rotators were repaired with #5 FiberWire. The fascia was closed with #1 absorbable suture, subcutaneous tissue with 2-0 absorbable suture, and the skin with marco. A wound vacuum-assisted closure (VAC) dressing was applied. The patient was transferred to the recovery room in stable condition. Condition Fair Disposition Still a Patient JOHN HERNANDEZ DO Apr 23, 2025 14:09
[2025-04-23] MEDS: ceFAZolin 1GM/50ML 50 ML IV SCH (14:24)
--- NOTE | 2025-04-23 14:46 | DVH ---
C-ARM FLUOROSCOPY: PROCEDURE: Right hip hemiarthroplasty FLUOROSCOPY TIME: 10.1 sec DAP: 0.75 mgy FINDINGS: Spot intraoperative C arm radiographs demonstrating right hip hemiarthroplasty. IMPRESSION: Please refer to surgical report for detailed findings.
--- NOTE | 2025-04-23 15:47 | DVH ---
CLINICAL INDICATION: postop TECHNIQUE: XYXY R FEMUR XRAY, right Comparison: XY R HIP 1V XRAY on DOS: 04/23/25, XY R HIP COMPLETE XRAY on DOS: 04/22/25, CT HIP RIGHT WO on DOS: 04/05/25, XR HIP RIGHT 2-3 VIEW on DOS: 03/27/25, XR PELVIS 1-2 VIEW on DOS: 03/27/25 FINDINGS/IMPRESSION: : Right hip arthroplasty appears well positioned and aligned. No immediate complications. Expected postsurgical changes including skin marco and soft tissue gas.
--- NOTE | 2025-04-23 18:41 | DVHPNRES ---
Progress Note Date Seen: Apr 23, 2025 Resident Creating Document: TEJINDER LOW Medical Necessity Reason Pt with a Central, PICC or Fol: No Subjective Review of Systems Gabriela Lunsford is a 85-year-old female patient who presents to the ED with chief complaint of requirement of admission due to elective right total hip replacement surgery (patient has rods placed which have to be exchange) with previous medical clearance. Patient was seen the outpatient clinic by Dr. Gaspar who completed stress test. Patient denies any symptoms. Past medical history: Hypertension, bilateral hip fracture secondary to mechanical fall status postop. Surgical history: Bilateral hip fracture repair with rods Family history: Noncontributory Social history: Lives in [place] with family (next of kin is daughter Frida). Denies tobacco, alcohol and other drug abuse Allergies: Memantine Home medication: Patient seen and examined at bedside. Labs and chart reviewed Today Patient had Complex Hip Hemiarthroplasty using a redapt, diaphyseal engaging stem, cable. Removal of hardware, application of wound vac Postoperative C-arm fluoroscopy revealed- Spot intraoperative C arm radiographs demonstrating right hip hemiarthroplasty. Postoperative vitals stable Objective vital signs Vital Sign Date Time Temp Pulse Resp B/P (MAP) Pulse Ox O2 Delivery O2 Flow Rate FiO2 04/23/25 17:00 98.3 83 16 91/52 (65) 98 98.3 04/23/25 13:06 Mask 6.0 04/23/25 08:00 21 Total Intake and Output 04/22/25 04/22/25 04/23/25 15:00 23:00 07:00 Intake Total 900 ml Balance 900 ml medications Current Medications Medications Dose Ordered Sig/Santiago Route Start Time Stop Time Status Last Admin Dose Admin Amlodipine Besylate 5 mg DAILY PO 04/22/25 10:00 Sodium Chloride 10 ml Q8HR IV 04/21/25 22:00 04/23/25 06:00 10 ML Acetaminophen/ Hydrocodone Bitart 1 tab Q4HP PRN PO 04/21/25 21:15 04/23/25 04:01 1 TAB Ondansetron HCl 4 mg Q4HP PRN IV 04/21/25 21:15 Docusate Sodium 100 mg BIDPRN PRN PO 04/21/25 21:15 Acetaminophen 650 mg Q6HP PRN PO 04/21/25 21:15 04/22/25 08:49 650 MG Enoxaparin Sodium 40 mg DAILY SC 04/22/25 10:00 04/22/25 10:00 40 MG Ferrous Sulfate 325 mg DAILY PO 04/22/25 10:00 04/22/25 10:00 325 MG Cefazolin Sodium 50 ml @ 100 mls/hr Q8HR IV 04/23/25 14:00 04/23/25 14:24 100 MLS/HR Examination General examination- awake, alert HEENT- PEERLA, no acute nasal discharge Cardiovascular- S1-S2 audible, rate and rhythm regular, no murmur Respiratory- CTAB, no wheeze or rhonchi Gastrointestinal-nontender, bowel sound+. Nondistended Musculoskeletal-no acute joint swelling or tenderness or redness Lower extremity- right lower extremity hip bandage Neurological- cranial nerves intact, no acute dysarthria or dysphagia Psychiatry- denies depression or SI or HI Skin- no acute rash or purpura laboratory and microbiology Laboratory Tests 04/23/25 06:46 Test 04/23/25 06:46 Range/Units Serum Glucose 84 74-106 mg/dL Problem List/Assessment/Plan Problem List/Assessment/Plan Problem List/Assessment/Plan Elective surgery for right total hip replacement History of bilateral hip repair Multiple mechanical falls with no loss of consciousness Degenerative disc disease History of chronic mild compression fractures of L L2, L5 and T12 History of right 4th digit fracture Osteopenia 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 Removal of hardware, application of wound vac Postoperative C-arm fluoroscopy revealed- Spot intraoperative C arm radiographs demonstrating right hip hemiarthroplasty. Hypereosinophilia Rule out hypereosinophilic syndrome (questionable endomyocardial fibrosis) Chronic diastolic congestive heart failure (HFpEF, LVEF 55-60%) Moderate Pulmonary hypertension (RVSP 55-60 mmHg) Moderate tricuspid regurgitation Patient has above 5000 eosinophils (6039, leukocytes 9.9 and eosinophils 61%). Troponin negative x2 (6-5) Last echocardiogram completed was on 11/2024 which showed LVEF 55-60%, mild LVH, mild diastolic dysfunction, RV mildly dilated with normal function, moderate TR and moderate pulmonary hypertension (RVSP 55-60 mmHg) Ordered and a complement, HIV, hepatitis panel, stool studies and ova/parasites. Cardiology consulted (Dr Gaspar), patient had completed stress test in the outpatient setting, pending results. Hypereosinophilia Thrombocytosis Normocytic anemia Patient may eventually benefit from bone marrow biopsy Probable mild cognitive impairment Follow up as outpatient Patient is allergic to memantine Goals of care discussed with patient for over 27 minutes: Full code status Discussed plan with Dr. Rangel, patient and nurses: Plan discussed with: Patient, Other Visit Coding STANDARD RES Billing Provider: TAVON RANGEL MD Date of Service if different f: Apr 23, 2025 Common Visit Codes: [id number] INP/OBS CARE(HIGH) TEJINDER LOW RESIDENT Apr 23, 2025 18:41
[2025-04-24] VITALS (11 sets, daily range): BP systolic 97–121; BP diastolic 55–69; PULSE 71–116; RESP 16–19; TEMP 97.7–98.4; O2SAT 95–100
[2025-04-24 05:42] LABS: Hematocrit 20.9 % (36.0-46.0); Mean Corpuscular Hemoglobin 29.5 pg (28.0-32.0); Mean Corpuscular Volume 94.4 fL (80.0-100.0); Nucleated Red Blood Cells % 0.4 %
[2025-04-24 05:58] LABS: Anion Gap 8 (5-15); Carbon Dioxide 24 mmol/L (20-31); Potassium 4.9 mmol/L (3.5-5.1); Sodium 139 mmol/L (136-145)
[2025-04-24 06:01] LABS: Calcium 8.6 mg/dL (8.7-10.4); Chloride 107 mmol/L (98-107)
[2025-04-24 06:04] LABS: BUN/Creatinine Ratio 29.9 (10.0-20.0); Hemoglobin 6.5 g/dL (12.2-16.2)
[2025-04-24 06:05] LABS: Magnesium 2.2 mg/dL (1.6-2.6)
[2025-04-24 06:07] LABS: Blood Urea Nitrogen 29 mg/dL (9-23); Glucose 152 mg/dL (74-106)
[2025-04-24 06:43] LABS: Anisocytosis Marked; Ovalocytes FEW
[2025-04-24 07:41] LABS: Hematocrit 20.8 % (36.0-46.0)
[2025-04-24 07:45] LABS: Hemoglobin 6.7 g/dL (12.2-16.2)
[2025-04-24 13:07] LABS: Anti-Centromere B Antibody <0.2 AI (0.0-0.9); Anti-Jo-1 Antibody <0.2 AI (0.0-0.9); Anti-dsDNA Antibody 2 IU/mL (0-9); Antichromatin Antibody <0.2 AI (0.0-0.9); Antiscleroderma-70 Antibody 0.2 AI (0.0-0.9); Sjogren's Anti-SS-A Antibody 3.8 AI (0.0-0.9); Sjogren's Anti-SS-B Antibody <0.2 AI (0.0-0.9)
--- NOTE | 2025-04-24 15:19 | DVHPNRES ---
Progress Note Date Seen: Apr 24, 2025 Resident Creating Document: TEJINDER LOW Medical Necessity Reason Pt with a Central, PICC or Fol: No Subjective Review of Systems Gabriela Lunsford is a 85-year-old female patient who presents to the ED with chief complaint of requirement of admission due to elective right total hip replacement surgery (patient has rods placed which have to be exchange) with previous medical clearance. Patient was seen the outpatient clinic by Dr. Gaspar who completed stress test. Patient denies any symptoms. Past medical history: Hypertension, bilateral hip fracture secondary to mechanical fall status postop. Surgical history: Bilateral hip fracture repair with rods Family history: Noncontributory Social history: Lives in [place] with family (next of kin is daughter Frida). Denies tobacco, alcohol and other drug abuse Allergies: Memantine Home medication: Patient seen and examined at bedside. Labs and chart reviewed Post surgery patient's hemoglobin dropped to 6.7, Patient had 1 unit of blood transfusion today repeat H&H, 8.4/.4 Physical therapy evaluation on board Spoke to patient's daughter Ayde Wiggins, [id number] discussed patient's current medical condition, plan of care and answered her questions Objective vital signs Vital Sign Date Time Temp Pulse Resp B/P (MAP) Pulse Ox O2 Delivery O2 Flow Rate FiO2 04/24/25 15:09 97.9 97 16 97/59 97.9 04/24/25 09:00 98 04/24/25 08:00 Room Air* 0 21 Total Intake and Output 04/23/25 04/23/25 04/24/25 15:00 23:00 07:00 Intake Total 170 ml 400 ml 750 ml Balance 170 ml 400 ml 750 ml medications Current Medications Medications Dose Ordered Sig/Santiago Route Start Time Stop Time Status Last Admin Dose Admin Amlodipine Besylate 5 mg DAILY PO 04/22/25 10:00 04/24/25 10:22 5 MG Sodium Chloride 10 ml Q8HR IV 04/21/25 22:00 04/24/25 05:10 10 ML Acetaminophen/ Hydrocodone Bitart 1 tab Q4HP PRN PO 04/21/25 21:15 04/23/25 04:01 1 TAB Ondansetron HCl 4 mg Q4HP PRN IV 04/21/25 21:15 Docusate Sodium 100 mg BIDPRN PRN PO 04/21/25 21:15 Acetaminophen 650 mg Q6HP PRN PO 04/21/25 21:15 04/22/25 08:49 650 MG Ferrous Sulfate 325 mg DAILY PO 04/22/25 10:00 04/24/25 10:23 325 MG Cefazolin Sodium 50 ml @ 100 mls/hr Q8HR IV 04/23/25 14:00 04/24/25 05:09 100 MLS/HR Examination General examination- awake, alert HEENT- PEERLA, no acute nasal discharge Cardiovascular- S1-S2 audible, rate and rhythm regular, no murmur Respiratory- CTAB, no wheeze or rhonchi Gastrointestinal-nontender, bowel sound+. Nondistended Musculoskeletal-no acute joint swelling or tenderness or redness Lower extremity- right lower extremity hip bandage Neurological- cranial nerves intact, no acute dysarthria or dysphagia Psychiatry- denies depression or SI or HI Skin- no acute rash or purpura laboratory and microbiology Laboratory Tests 04/24/25 06:59 04/24/25 05:07 Test 04/24/25 05:07 Range/Units Serum Glucose 152 H 74-106 mg/dL Problem List/Assessment/Plan Problem List/Assessment/Plan Problem List/Assessment/Plan # Elective surgery for right total hip replacement - completed 04/24/2025 # History of bilateral hip repair # Multiple mechanical falls with no loss of consciousness # Degenerative disc disease # History of chronic mild compression fractures of L L2, L5 and T12 # History of right 4th digit fracture # Osteopenia 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 Removal of hardware, application of wound vac Postoperative C-arm fluoroscopy revealed- Spot intraoperative C arm radiographs demonstrating right hip hemiarthroplasty. PT on board # Hypereosinophilia # Rule out hypereosinophilic syndrome (questionable endomyocardial fibrosis) # Chronic diastolic congestive heart failure (HFpEF, LVEF 55-60%) # Moderate Pulmonary hypertension (RVSP 55-60 mmHg) # Moderate tricuspid regurgitation Patient has above 5000 eosinophils (6039, leukocytes 9.9 and eosinophils 61%). Troponin negative x2 (6-5) Last echocardiogram completed was on 11/2024 which showed LVEF 55-60%, mild LVH, mild diastolic dysfunction, RV mildly dilated with normal function, moderate TR and moderate pulmonary hypertension (RVSP 55-60 mmHg) Ordered and a complement, HIV, hepatitis panel, stool studies and ova/parasites. Cardiology consulted (Dr Gaspar), patient had completed stress test in the outpatient setting, pending results. # Hypereosinophilia # Thrombocytosis # Severe Normocytic anemia - s/p 1 PRBC Patient may eventually benefit from bone marrow biopsy Received 1 PRBC post-op on 04/24/2025. Will repeat CBC Probable mild cognitive impairment Follow up as outpatient Patient is allergic to memantine Goals of care discussed with patient for over 27 minutes: Full code status Discussed plan with Dr. Rangel, patient and nurses Plan discussed with: Patient, Other (RN) Visit Coding STANDARD RES Billing Provider: TAVON RANGEL MD Date of Service if different f: Apr 24, 2025 Common Visit Codes: [id number] INP/OBS CARE(HIGH) TEJINDER LOW RESIDENT Apr 24, 2025 15:19 PETE ESCOBEDO RESIDENT Apr 24, 2025 22:46
[2025-04-24 16:06] LABS: Hemoglobin 8.4 g/dL (12.2-16.2)
[2025-04-24 16:08] LABS: Hematocrit 25.4 % (36.0-46.0)
[2025-04-25] VITALS (7 sets, daily range): BP systolic 100–126; BP diastolic 54–78; PULSE 86–96; RESP 16–18; TEMP 98.1–99.1; O2SAT 95–100
[2025-04-25 07:16] LABS: Hemoglobin 8.3 g/dL (12.2-16.2)
[2025-04-25 07:19] LABS: Hematocrit 25.1 % (36.0-46.0); Mean Corpuscular Hemoglobin 29.4 pg (28.0-32.0); Mean Corpuscular Volume 89.1 fL (80.0-100.0)
[2025-04-25 07:27] LABS: Potassium 4.5 mmol/L (3.5-5.1); Sodium 138 mmol/L (136-145)
[2025-04-25 07:28] LABS: Anion Gap 7 (5-15); Carbon Dioxide 24 mmol/L (20-31)
[2025-04-25 07:31] LABS: Calcium 8.6 mg/dL (8.7-10.4); Chloride 107 mmol/L (98-107)
[2025-04-25 07:33] LABS: BUN/Creatinine Ratio 21.6 (10.0-20.0); Blood Urea Nitrogen 21 mg/dL (9-23); Glucose 89 mg/dL (74-106)
--- NOTE | 2025-04-25 07:44 | DVHPN2 ---
Progress Note Date Seen: Apr 25, 2025 Medical Necessity Reason Pt with a Central, PICC or Fol: No Subjective Patient reports: No new complaints Objective vital signs Vital Sign Date Time Temp Pulse Resp B/P (MAP) Pulse Ox O2 Delivery O2 Flow Rate FiO2 04/25/25 05:00 98.6 89 18 120/55 (76) 100 98.6 04/24/25 20:00 Room Air* 0 21 Total Intake and Output 04/24/25 04/24/25 04/25/25 15:00 23:00 07:00 Intake Total 1770 ml 400 ml Balance 1770 ml 400 ml medications Current Medications Medications Dose Ordered Sig/Santiago Route Start Time Stop Time Status Last Admin Dose Admin Amlodipine Besylate 5 mg DAILY PO 04/22/25 10:00 04/24/25 10:22 5 MG Sodium Chloride 10 ml Q8HR IV 04/21/25 22:00 04/25/25 06:06 10 ML Acetaminophen/ Hydrocodone Bitart 1 tab Q4HP PRN PO 04/21/25 21:15 04/25/25 03:54 1 TAB Ondansetron HCl 4 mg Q4HP PRN IV 04/21/25 21:15 Docusate Sodium 100 mg BIDPRN PRN PO 04/21/25 21:15 Acetaminophen 650 mg Q6HP PRN PO 04/21/25 21:15 04/22/25 08:49 650 MG Ferrous Sulfate 325 mg DAILY PO 04/22/25 10:00 04/24/25 10:23 325 MG Cefazolin Sodium 50 ml @ 100 mls/hr Q8HR IV 04/23/25 14:00 04/25/25 06:05 100 MLS/HR Examination: GENERAL:Normal, MSK:Abnormal laboratory and microbiology Laboratory Tests 04/25/25 06:54 Test 04/25/25 06:54 Range/Units Serum Glucose 89 74-106 mg/dL Problem List/Assessment/Plan Problem List/Assessment/Plan 85 year old female who is s/p Right hip hardware removal with conversion to right total hip arthroplasty POD 2 1. Pain control 2. WBAT 3. PT 4. DVT ppx 5. anemia has improved 6. d/c planning for possible SNF Plan discussed with: Patient Date of Service: Apr 25, 2025 Billing Provider: YOBANI COTA MD Common Visit Codes: NOT BILLABLE LUCIANA RAUSCH NP Apr 25, 2025 07:44
[2025-04-25 09:50] LABS: Anisocytosis Marked; Total Cells Counted 100.0 (100)
[2025-04-25 09:51] LABS: Ovalocytes FEW; Stomatocytes Few
--- NOTE | 2025-04-25 17:36 | DVHDSRES ---
Discharge Summary Date of Admission Resident Creating Document: TEJINDER LOW RESIDENT Apr 21, 2025 at 21:11 Date of Discharge: Apr 25, 2025 Admitting Diagnosis # Elective surgery for right total hip replacement # History of bilateral hip repair # Multiple mechanical falls with no loss of consciousness Labs/Diagnostic Data: Laboratory Results Test 04/25/25 06:54 04/24/25 05:07 04/22/25 23:10 04/22/25 20:57 White Blood Count 13.5 10^3/uL (4.4-10.8) Red Blood Count 2.81 10^6/uL (4.0-5.20) Hemoglobin 8.3 g/dL (12.2-16.2) Hematocrit 25.1 % (36.0-46.0) Mean Corpuscular Volume 89.1 fL (80.0-100.0) Mean Corpuscular Hemoglobin 29.4 pg (28.0-32.0) Mean Corpuscular Hemoglobin Concent 32.9 g/dL (32.0-36.0) Red Cell Distribution Width 30.9 % (11.8-14.3) Platelet Count 463 10^3/uL (140-450) Mean Platelet Volume 7.2 fL (6.9-10.8) Neutrophils (%) (Auto) % (37.0-80.0) Lymphocytes (%) (Auto) % (10.0-50.0) Monocytes (%) (Auto) % (0.0-12.0) Eosinophils (%) (Auto) % (0.0-7.0) Basophils (%) (Auto) % (0.0-2.0) Neutrophils # (Auto) 10 ^3/uL (1.6-8.6) Lymphocytes # (Auto) 10 ^3/uL (0.4-5.4) Monocytes # (Auto) 10 ^3/uL (0-1.3) Differential Total Cells Counted 100.0 (100) Neutrophils % (Manual) 42 (37.0-80.0) Band Neutrophils % (Manual) 1 Lymphocytes % (Manual) 9 (10.0-50.0) Monocytes % (Manual) 8 (0-12) Eosinophils % (Manual) 40 (0-7) Basophils % (Manual) 0 (0.0-2.0) Metamyelocytes % (manual) 0 Myelocytes % (Manual) 0 Promyelocytes % (Manual) 0 Blast Cells % (Manual) 0 Reactive Lymphocytes 0 Platelet Estimate Increased Anisocytosis (manual) Marked Target Cells Few Ovalocytes Few Stomatocytes Few Schistocytes Few Sodium Level 138 mmol/L (136-145) Potassium Level 4.5 mmol/L (3.5-5.1) Chloride Level 107 mmol/L (98-107) Carbon Dioxide Level 24 mmol/L (20-31) Anion Gap 7 (5-15) Blood Urea Nitrogen 21 mg/dL (9-23) Creatinine 0.97 mg/dL (0.550-1.02) Glomerular Filtration Rate Calc 57 mL/min (>90) BUN/Creatinine Ratio 21.6 (10.0-20.0) Serum Glucose 89 mg/dL (74-106) Calcium Level 8.6 mg/dL (8.7-10.4) Eosinophils # (Auto) 0.6 10 ^3/uL (0-0.8) Basophils # (Auto) 0.1 10 ^3/uL (0-0.2) Nucleated Red Blood Cells 0.4 % Poikilocytosis (manual) Slight Magnesium Level 2.2 mg/dL (1.6-2.6) Urine Color Light-yellow (Yellow) Urine Clarity Clear (Clear) Urine pH 6.5 (5.0-9.0) Urine Specific [place] 1.024 (1.001-1.035) Urine Protein Negative (Negative) Urine Ketones Negative (Negative) Urine Blood Negative /uL (Negative) Urine Nitrite Negative (Negative) Urine Bilirubin Negative (Negative) Urine Urobilinogen Normal mg/dL (Negative) Urine Leukocyte Esterase 1+ /uL (Negative) Urine RBC None seen /hpf (0 - 4) Urine Microscopic WBC 7 /HPF (0-5) Urine Squamous Epithelial Cells Few /hpf (<5) Urine Bacteria None seen /hpf (None Seen) Urine Glucose Normal mg/dL (Normal) Urine Opiates Screen Neg (NEGATIVE) Urine Fentanyl Screen Neg (NEGATIVE) Urine Barbiturates Screen Neg (NEGATIVE) Urine Phencyclidine Screen Neg (NEGATIVE) Urine Amphetamines Screen Neg (NEGATIVE) Urine Benzodiazepines Screen Neg (NEGATIVE) Urine Cocaine Screen Neg (NEGATIVE) Urine Cannabinoids Screen Neg (NEGATIVE) Stool for White Cells None seen Test 04/22/25 20:17 04/22/25 10:45 04/22/25 05:13 04/21/25 14:06 Anti-Nuclear Antibody Comment Comment (.) ILAN-1 Antibody <0.2 AI (0.0-0.9) SS-A/Ro Antibody 3.8 AI (0.0-0.9) SS-B/La Antibody <0.2 AI (0.0-0.9) Sm Antibody <0.2 AI (0.0-0.9) LANGUAGE ASSISTANT Antibody 0.8 AI (0.0-0.9) Scl-70 (Scleroderma) Antibody 0.2 AI (0.0-0.9) Anti-Double Strand DNA Antibody 2 IU/mL (0-9) Chromatin Antibody <0.2 AI (0.0-0.9) Centromere B Antibody <0.2 AI (0.0-0.9) HIV (1&2) Antibody Negative (Negative) Prothrombin Time 11.5 sec (9.3-11.8) Prothrombin Time INR 1.09 (0.9-1.15) Activated Partial Thromboplast Time 26.8 SEC (24.5-34.5) Tear Drop Cells Few Hemoglobin A1c 6.1 % A1C (<5.7) Phosphorus Level 4.2 mg/dL (2.4-5.1) Total Bilirubin 0.5 mg/dL (0.2-1.0) Aspartate Amino Transferase (AST) 25 U/L (13-40) Alanine Aminotransferase (ALT) 12 U/L (7-40) Alkaline Phosphatase 81 U/L (46-116) Total Protein 6.1 g/dL (5.7-8.2) Albumin 3.4 g/dL (3.2-4.8) Vitamin B12 Level 539 pg/mL (211-911) Vitamin D 25-Hydroxy 52.2 ng/mL (30.0-100) Thyroid Stimulating Hormone (TSH) 1.76 uIU/mL (0.55-4.78) Hepatitis A IgM Antibody Negative Hepatitis B Surface Antigen Negative (Negative) Hepatitis B Core IgM Antibody Negative (Negative) Hepatitis C Antibody Negative (Negative) Troponin I High Sensitivity 5 ng/L (</=34) Other Laboratory Tests 04/25/25 06:54 Brief Hx & Hospital Course: Kerry Barron is a 85-year-old female patient who presents to the ED with chief complaint of requirement of admission due to elective right total hip replacement surgery (patient has rods placed which have to be exchange) with previous medical clearance. Patient was seen the outpatient clinic by Dr. Gaspar who completed stress test. Patient denies any symptoms. Patient is s/p Right hip hardware removal with conversion to right total hip arthroplasty. Patient had 1 unit of blood transfusion which was expected status post surgical intervention. Hemoglobin stable Hemodynamically stable today. Physical therapy evaluation was done recommended for SNF for physical therapy. Patient is being discharged in hemodynamically stable condition. Patient was advised to follow up with the MD at SNF/PCP/orthopedic surgeon. All questions answered. General examination- awake, alert HEENT- PEERLA, no acute nasal discharge Cardiovascular- S1-S2 audible, rate and rhythm regular, no murmur Respiratory- CTAB, no wheeze or rhonchi Gastrointestinal-nontender, bowel sound+. Nondistended Musculoskeletal-no acute joint swelling or tenderness or redness Lower extremity- right lower extremity hip bandage Neurological- cranial nerves intact, no acute dysarthria or dysphagia Psychiatry- denies depression or SI or HI Skin- no acute rash or purpura Plan of care discussed with Dr. Rangel Consults/Reason for consult Patient: KERRY BARRON Acct: [id number] : 1940 Loc: [facility] Age/Sex: 85/F [id number] Progress Note Date Seen: Apr 25, 2025 Medical Necessity Reason Pt with a Central, PICC or Fol: No Subjective Patient reports: No new complaints Objective vital signs Vital Sign Date Time Temp Pulse Resp B/P (MAP) Pulse Ox O2 Delivery O2 Flow Rate FiO2 04/25/25 05:00 98.6 89 18 120/55 (76) 100 98.6 04/24/25 20:00 Room Air* 0 21 Total Intake and Output 04/24/25 04/24/25 04/25/25 15:00 23:00 07:00 Intake Total 1770 ml 400 ml Balance 1770 ml 400 ml medications Current Medications Medications Dose Ordered Sig/Santiago Route Start Time Stop Time Status Last Admin Dose Admin Amlodipine Besylate 5 mg DAILY PO 04/22/25 10:00 04/24/25 10:22 5 MG Sodium Chloride 10 ml Q8HR IV 04/21/25 22:00 04/25/25 06:06 10 ML Acetaminophen/ Hydrocodone Bitart 1 tab Q4HP PRN PO 04/21/25 21:15 04/25/25 03:54 1 TAB Ondansetron HCl 4 mg Q4HP PRN IV 04/21/25 21:15 Docusate Sodium 100 mg BIDPRN PRN PO 04/21/25 21:15 Acetaminophen 650 mg Q6HP PRN PO 04/21/25 21:15 04/22/25 08:49 650 MG Ferrous Sulfate 325 mg DAILY PO 04/22/25 10:00 04/24/25 10:23 325 MG Cefazolin Sodium 50 ml @ 100 mls/hr Q8HR IV 04/23/25 14:00 04/25/25 06:05 100 MLS/HR Examination: GENERAL:Normal, MSK:Abnormal laboratory and microbiology Laboratory Tests 04/25/25 06:54 Test 04/25/25 06:54 Range/Units Serum Glucose 89 74-106 mg/dL Problem List/Assessment/Plan Problem List/Assessment/Plan 85 year old female who is s/p Right hip hardware removal with conversion to right total hip arthroplasty POD 2 1. Pain control 2. WBAT 3. PT 4. DVT ppx 5. anemia has improved 6. d/c planning for possible SNF Plan discussed with: Patient Date of Service: Apr 25, 2025 Billing Provider: YOBANI COTA MD Common Visit Codes: NOT BILLABLE LUCIANA RAUSCH NP Apr 25, 2025 07:44 E/M VISIT PERFORMED BY: TRANSCRIBED BY:LUCIANA RAUSCH NP TRANSCRIBED DATE/TIME:04/25/25743 ELECTRONICALLY SIGNED BY:LUCIANA RAUSCH NP 04/25/25743 ELECTRONICALLY CO-SIGNED BY: Patient: KERRY BARRON Acct: [id number] : 1940 Loc: [facility] Age/Sex: 85/F [facility] Attending Phy: TEJINDER LOW RESIDENT OPERATIVE REPORT ADDENDUM Name: KERRY BARRON Acct: [id number] Addendum: JUANJOSE JORDAN DO on 04/23/25 @ 14:21 Cirilo was the [employer] for this case _ ____ ADDENDUM ELECTRONICALLY SIGNED BY: Operative Report - 2 Report Details Date: 04/23/25 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 These include but are not limited to complications of anesthesia, postoperative infection, incomplete relief of symptoms, recurrence of symptoms, damage to blood vessels, nerves and tendons, deep venous thrombosis, pulmonary embolism and possible need for repeat surgery in the future. Name of Procedure Performed Complex Hip Hemiarthroplasty using a redapt, diaphyseal engaging stem, cable. Removal of hardware, application of wound vac Procedure Details Procedure Details: After preoperative verification and anesthesia induction, the patient was positioned in the lateral decubitus position with appropriate padding. The operative site was prepped and draped in the standard sterile fashion. A new incision was made to optimize exposure, as the previous incision could not be utilized. Dissection was carried through subcutaneous tissue and fascia. A posterior greater trochanter resection osteotomy was performed to facilitate access to the proximal femur and hardware. The three previously placed screws were identified and carefully removed. Attention was then directed to the femur. A cable was placed around the proximal femur to provide additional stability and prevent fracture propagation as she had calcar bone loss from her varus collapse. We then locations and cannulated the femoral canal, which was incrementally reamed up to 17 mm to accommodate the Redapt diaphyseal engaging stem. The stem was trailed and then implanted for stable diaphyseal fixation. . The hip was reduced, and stability and leg length were assessed and confirmed. The wound was irrigated thoroughly and hemostasis was achieved. The capsule and short external rotators were repaired with #5 FiberWire. The fascia was closed with #1 absorbable suture, subcutaneous tissue with 2-0 absorbable suture, and the skin with marco. A wound vacuum-assisted closure (VAC) dressing was applied. The patient was transferred to the recovery room in stable condition. Condition Fair Disposition 2 Still a Patient JUANJOSE JORDAN DO Apr 23, 2025 14:09 DICTATED BY:JUANJOSE JORDAN DO DICTATED DATE/TIME:04/23/251408 ELECTRONICALLY SIGNED BY:JUANJOSE JORDAN DO 04/23/251408 ELECTRONICALLY CO-SIGNED BY: [facility] [id number] [facility] [id number] Ph: [phone] DIAGNOSTIC IMAGING Diagnostic Imaging Report : [id number] Signed PATIENT: KERRY BARRON ACCT: [id number] UNIT: [id number] : 1940 LOC: [facility] ROOM / BED: [facility] / A AGE / SEX: 85 / F ADM STATUS: ADM IN SERVICE 46 ORDERING PHYSICIAN: YOBANI COTA MD PROCEDURE(s): ECIDC - ECHO 2D MODE CARDIAC DOP REASON: cad ORDER NUMBER(s): [id number], ACCESSION NUMBER(s): [id number] APPROVED REPORT EXAM: Two-dimensional and M-mode echocardiogram with Doppler and color Doppler. Blood Pressure: 125/83 mmHg INDICATION CAD RISK FACTORS Height: 5'2, Weight: 139 DIMENSIONS LVDd 4.7 (3.8-5.7cm) LA (2D) 3.8 (1.9-4.0cm) Aortic Root 2.5 (2.0- 3.7cm) LVDs 3.3 (2.5-4.0cm) LA (MM) (1.9-4.0cm) Aortic Cusp Exc 1.8 (1.5- 2.0cm) EF (%) 56.0 (55-70%) Rt. Atrium 4.3 (1.9-4.0cm) Asc. Aorta 3.1 cm IVSd 1.0 (0.7-1.1cm) RV (D) (1.8-2.4cm) PWd 1.1 (0.7-1.1cm) Mitral Valve Mitral Mitral Stenosis E wave 0.89m/s MV Mean GR. mmHg A wave 0.97m/s MV Peak GR. mmHg E/A ratio 0.9 2D MVA cm2 DECEL Time 172ms PRESS 1/2 Time ms Aortic Valve Aortic Valve Aortic Stenosis V1 1.36m/s AO Mean GR. 4mmHg V2 1.51m/s AO Peak GR. 9mmHg LVOT Diameter 1.9 (1.8-2.4cm) Doppler ELIZA 2.55cm2 Pulmonic Valve V2 0.93m/s Tricuspid Valve TR Velocity 2.78m/s RVSP 31mmHg Conclusion lvef 60% mild LVH RV enlarged biatrial enlargement moderate to severe tricuspid regurg SIGNED BY: SHAZIA ROJAS MD SIGNED DATE/TIME: 04/23/25 09 CC: Operations or Procedures [place] [id number] Ph: [phone] DIAGNOSTIC IMAGING Diagnostic Imaging Report : [id number] Signed PATIENT: KERRY BARRON ACCT: [id number] UNIT: [id number] : 1940 LOC: [facility] ROOM / BED: [address] [place] [address] AGE / SEX: 85 / F ADM STATUS: ADM IN SERVICE 8 ORDERING PHYSICIAN: PETE ESCOBEDO PROCEDURE(s): LHIP - L HIP COMPLETE XRAY REASON: Hip fracture ORDER NUMBER(s): [id number], ACCESSION NUMBER(s): [id number] vilateral HIP RADIOGRAPH. CLINICAL INDICATION: Hip fracture TECHNIQUE: 4 views of the bilatearl hip were obtained. FINDINGS: Post surgical changes bilateral femurs with 3 surgical screws right proximal femur and intramedullar savanna and screws in left femur. There is no evidence of fracture, subluxation or dislocation.The alignment is within normal limits.The bony mineralization is normal.No radiopaque foreign body is identified. IMPRESSION: 1. No evidence of acute bony injury. ATED BY: CARI COTA MD DICTATED DATE/TIME: 04/22/251118 SIGNED BY: CARI COTA MD SIGNED DATE/TIME: 04/22/25 111 CC: [place] [id number] Ph: [phone] DIAGNOSTIC IMAGING Diagnostic Imaging Report : [id number] Signed PATIENT: KERRY BARRON ACCT: [id number] UNIT: [id number] : 1940 LOC: [facility] AGE / SEX: 85 / F ADM STATUS: ADM IN SERVICE 0939 ORDERING PHYSICIAN: PETE ESCOBEDO PROCEDURE(s): RHIP - R HIP COMPLETE XRAY REASON: Hip fracture ORDER NUMBER(s): [id number], ACCESSION NUMBER(s): [id number] vilateral HIP RADIOGRAPH. CLINICAL INDICATION: Hip fracture TECHNIQUE: 4 views of the bilatearl hip were obtained. FINDINGS: Post surgical changes bilateral femurs with 3 surgical screws right proximal femur and intramedullar savanna and screws in left femur. There is no evidence of fracture, subluxation or dislocation.The alignment is within normal limits.The bony mineralization is normal.No radiopaque foreign body is identified. IMPRESSION: 1. No evidence of acute bony injury. ATED BY: CARI COTA MD DICTATED DATE/TIME: 04/22/25 111 SIGNED BY: CARI COTA MD SIGNED DATE/TIME: 04/22/25 1119 CC: [place] [id number] Ph: [phone] DIAGNOSTIC IMAGING Diagnostic Imaging Report : [id number] Signed PATIENT: KERRY BARRON ACCT: [id number] UNIT: [id number] : 1940 LOC: [facility] ROOM / BED: [facility] / A AGE / SEX: 85 / F ADM STATUS: ADM IN SERVICE ORDERING PHYSICIAN: PETE ESCOBEDO PROCEDURE(s): RHIP - R HIP COMPLETE XRAY REASON: Hip fracture ORDER NUMBER(s): [id number], ACCESSION NUMBER(s): [id number] vilateral HIP RADIOGRAPH. CLINICAL INDICATION: Hip fracture TECHNIQUE: 4 views of the bilatearl hip were obtained. FINDINGS: Post surgical changes bilateral femurs with 3 surgical screws right proximal femur and intramedullar savanna and screws in left femur. There is no evidence of fracture, subluxation or dislocation.The alignment is within normal limits.The bony mineralization is normal.No radiopaque foreign body is identified. IMPRESSION: 1. No evidence of acute bony injury. ATED BY: CARI COTA MD DICTATED DATE/TIME: 04/22/251118 SIGNED BY: CARI COTA MD SIGNED DATE/TIME: 04/22/251118 CC: [place] [id number] Ph: [phone] DIAGNOSTIC IMAGING Diagnostic Imaging Report : [id number] Signed PATIENT: KERRY BARRON ACCT: [id number] UNIT: [id number] : 1940 LOC: [facility] ROOM / BED: [facility] / A AGE / SEX: 85 / F ADM STATUS: ADM IN SERVICE 8 ORDERING PHYSICIAN: PETE ESCOBEDO RESIDENT PROCEDURE(s): RHIP - R HIP COMPLETE XRAY REASON: Hip fracture ORDER NUMBER(s): [id number], ACCESSION NUMBER(s): [id number] vilateral HIP RADIOGRAPH. CLINICAL INDICATION: Hip fracture TECHNIQUE: 4 views of the bilatearl hip were obtained. FINDINGS: Post surgical changes bilateral femurs with 3 surgical screws right proximal femur and intramedullar savanna and screws in left femur. There is no evidence of fracture, subluxation or dislocation.The alignment is within normal limits.The bony mineralization is normal.No radiopaque foreign body is identified. IMPRESSION: 1. No evidence of acute bony injury. ATED BY: CARI COTA MD DICTATED DATE/TIME: 04/22/251118 SIGNED BY: CARI COTA MD SIGNED DATE/TIME: 04/22/251118 CC: [place] [id number] Ph: [phone] DIAGNOSTIC IMAGING Diagnostic Imaging Report : [id number] Signed PATIENT: KERRY BARRON ACCT: [id number] UNIT: [id number] : 1940 LOC: [facility] AGE / SEX: 85 / F ADM STATUS: ADM IN SERVICE 1300 ORDERING PHYSICIAN: LUCIANA RAUSCH NP PROCEDURE(s): RFEM - R FEMUR XRAY REASON: postop ORDER NUMBER(s): [id number], ACCESSION NUMBER(s): [id number] CLINICAL INDICATION: postop TECHNIQUE: XYXY R FEMUR XRAY, right Comparison: XY R HIP 1V XRAY on DOS: 04/23/25, XY R HIP COMPLETE XRAY on DOS: 04/22/25, CT HIP RIGHT WO on DOS: 04/05/25, XR HIP RIGHT 2-3 VIEW on DOS: 03/27/25, XR PELVIS 1-2 VIEW on DOS: 03/27/25 FINDINGS/IMPRESSION: : Right hip arthroplasty appears well positioned and aligned. No immediate complications. Expected postsurgical changes including skin marco and soft tissue gas. ATED BY: CARI COTA MD DICTATED DATE/TIME: 04/23/25 1545 SIGNED BY: CARI COTA MD SIGNED DATE/TIME: 04/23/25 1545 CC: [place] [id number] Ph: [phone] DIAGNOSTIC IMAGING Diagnostic Imaging Report : [id number] Signed PATIENT: KERRY BARRON ACCT: [id number] UNIT: [id number] : 1940 LOC: [facility] AGE / SEX: 85 / F ADM STATUS: ADM IN SERVICE 1416 ORDERING PHYSICIAN: JUANJOSE JORDAN DO PROCEDURE(s): RHIP1 - R HIP 1V XRAY REASON: RIGHT HIP HEMIARTHROPLASTY, REMOVAL OF HIP HARDWARE ORDER NUMBER(s): [id number], ACCESSION NUMBER(s): [id number] C-ARM FLUOROSCOPY: PROCEDURE: Right hip hemiarthroplasty FLUOROSCOPY TIME: 10.1 sec DAP: 0.75 mgy FINDINGS: Spot intraoperative C arm radiographs demonstrating right hip hemiarthroplasty. IMPRESSION: Please refer to surgical report for detailed findings. ATED BY: CARI COTA MD DICTATED DATE/TIME: 04/23/251443 SIGNED BY: CARI COTA MD SIGNED DATE/TIME: 04/23/251443 CC: [place] [id number] Ph: [phone] DIAGNOSTIC IMAGING Diagnostic Imaging Report : [id number] Signed PATIENT: KERRY BARRON ACCT: [id number] UNIT: [id number] : 1940 LOC: [facility] ROOM / BED: [facility] / AGE / SEX: 85 / F ADM STATUS: ADM IN SERVICE 16 ORDERING PHYSICIAN: JUANJOSE JORDAN DO PROCEDURE(s): CARM1 - C ARM FLUOROSCOPY UP TO 60MIN REASON: RIGHT HIP HEMIARTHROPLASTY, REMOVAL OF HIP HARDWARE ORDER NUMBER(s): [id number], ACCESSION NUMBER(s): [id number] C-ARM FLUOROSCOPY: PROCEDURE: Right hip hemiarthroplasty FLUOROSCOPY TIME: 10.1 sec DAP: 0.75 mgy FINDINGS: Spot intraoperative C arm radiographs demonstrating right hip hemiarthroplasty. IMPRESSION: Please refer to surgical report for detailed findings. ATED BY: CARI COTA MD DICTATED DATE/TIME: 04/23/251443 SIGNED BY: CARI COTA MD SIGNED DATE/TIME: 04/23/251443 CC: Patient Name: KERRY BARRON Acct: [id number] Room: [facility] /Bed: A Attending Physician: GISELL ALVARADO DNP Loc: [facility] Unit: [id number] CONSULTATION REPORT . ................................................................................ ............................................................................... Date of service: Apr 22, 2025 Reason for Consultation Right hip pain , hx of ORIF with outside provider History of Present Illness 85 yo F sp ORIF right hip a few months ago with outside provider with continued pain/swelling/inability to bear weight on right leg. Patient unable to bear weight onto that side. No cp/sob/abd pain/nausea/vomiting. Past Medical History osteoporosis Family History: Patient reports no known family medical history. Allergies: Coded Allergies: Memantine (Verified Allergy, Severe, 08/20/23) Home Meds Active Scripts Calamine (Calamine) 1 Lot Lot, 1 LOT EX BIDPRN PRN for 10 Days, #1 BOTTLE Prov:MACILOLITAJENNI RESIDENT 12/06/24 Meloxicam (Meloxicam) 7.5 Mg Tab, 7.5 MG PO DAILY PRN, #30 TAB Prov:[facility] 08/20/23 Reported Medications Acetaminophen W/ Codeine (Acetaminophen/Codeine) 1 Tab Tab, 1 TAB PO TID, #90 TAB 04/21/25 Prednisone (PREDNISONE) 1 Mg Tb, 5 MG PO DAILY, TAB 04/21/25 Aspirin (Aspirin Low Dose) 81 Mg Chw, 1 TAB PO DAILY, #30 TAB 3 Refills 04/21/25 Cholecalciferol (VITAMIN D3) 2,000 Unit Tab, 50 MCG PO DAILY, TAB 04/21/25 Ferrous Sulfate (FERROUS SULFATE) 325 Mg Tb, 1 TAB PO DAILY, #30 TAB 3 Refills 04/21/25 Potassium Chloride (Potassium Chloride ER) 20 Meq Tab, 20 MEQ PO DAILY, TAB 04/21/25 Rivaroxaban (XARELTO) 20 Mg Tab, 2.5 MG PO BID, TAB 04/21/25 Carvedilol (Carvedilol) 3.125 Mg Tab, 1 TAB PO BID, #60 TAB 3 Refills 04/21/25 Sildenafil Citrate (Viagra) 50 Mg Tab, 25 MG PO BID, TAB 04/21/25 Amlodipine Besylate (Amlodipine Besylate) 10 Mg Tab, 1 TAB PO DAILY 11/13/24 Hydroxyzine Hcl (Hydroxyzine Hcl) 25 Mg Tab, 1 TAB PO HS 11/13/24 Bumetanide (Bumetanide) 1 Mg Tab, 1 TAB PO BID 11/13/24 Alendronate Sodium (Alendronate Sodium) 70 Mg Tab, 1 TAB PO QWEEKLY 11/13/24 Prednisone (Prednisone) 5 Mg Tab, 1 TAB PO DAILY 11/13/24 Current Medications Current Medications Medications (Trade) Dose Ordered Sig/Santiago Route PRN Reason Start Time Stop Time Status Last Admin Amlodipine Besylate (Norvasc Tablet) 5 mg DAILY PO 04/22/25 10:00 Enoxaparin Sodium (Lovenox) 40 mg DAILY SC 04/22/25 10:00 04/22/25 10:00 Ferrous Sulfate 325 mg DAILY PO 04/22/25 10:00 04/22/25 10:00 Vital Signs Vital Signs Date Time Temp Pulse Resp B/P (MAP) Pulse Ox O2 Delivery O2 Flow Rate FiO2 04/23/25 05:00 98.4 85 19 125/83 (97) 96 98.4 04/22/25 20:00 Room Air* 0 21 Labs/Diagnostic Data Labs Test 04/23/25 06:46 04/22/25 23:10 04/22/25 20:57 04/22/25 20:17 Range/Units White Blood Count 12.4 #H 4.4-10.8 10^3/uL Red Blood Count 3.27 L 4.0-5.20 10^6/uL Hemoglobin 10.0 L 12.2-16.2 g/dL Hematocrit 30.9 #L 36.0-46.0 % Mean Corpuscular Volume 94.4 80.0-100.0 fL Mean Corpuscular Hemoglobin 30.4 28.0-32.0 pg Mean Corpuscular Hemoglobin Concent 32.2 32.0-36.0 g/dL Red Cell Distribution Width 31.0 H 11.8-14.3 % Platelet Count 294 140-450 10^3/uL Mean Platelet Volume 6.8 L 6.9-10.8 fL Neutrophils (%) (Auto) 37.0-80.0 % Lymphocytes (%) (Auto) 10.0-50.0 % Monocytes (%) (Auto) 0.0-12.0 % Eosinophils (%) (Auto) 0.0-7.0 % Basophils (%) (Auto) 0.0-2.0 % Neutrophils # (Auto) 1.6-8.6 10 ^3/uL Lymphocytes # (Auto) 0.4-5.4 10 ^3/uL Monocytes # (Auto) 0-1.3 10 ^3/uL Sodium Level 141 136-145 mmol/L Potassium Level 4.8 3.5-5.1 mmol/L Chloride Level 108 H 98-107 mmol/L Carbon Dioxide Level 25 20-31 mmol/L Anion Gap 8 5-15 Blood Urea Nitrogen 31 H 9-23 mg/dL Creatinine 0.97 0.550-1.02 mg/dL Glomerular Filtration Rate Calc 57 >90 mL/min BUN/Creatinine Ratio 32.0 H 10.0-20.0 Serum Glucose 84 74-106 mg/dL Calcium Level 9.2 8.7-10.4 mg/dL Urine Color Light-yellow Yellow Urine Clarity Clear Clear Urine pH 6.5 5.0-9.0 Urine Specific [place] 1.024 1.001-1.035 Urine Protein Negative Negative Urine Ketones Negative Negative Urine Blood Negative Negative /uL Urine Nitrite Negative Negative Urine Bilirubin Negative Negative Urine Urobilinogen Normal Negative mg/dL Urine Leukocyte Esterase 1+ Negative /uL Urine RBC None seen 0 - 4 /hpf Urine Microscopic WBC 7 H 0-5 /HPF Urine Squamous Epithelial Cells Few <5 /hpf Urine Bacteria None seen None Seen /hpf Urine Glucose Normal Normal mg/dL Urine Opiates Screen Neg NEGATIVE Urine Fentanyl Screen Neg NEGATIVE Urine Barbiturates Screen Neg NEGATIVE Urine Phencyclidine Screen Neg NEGATIVE Urine Amphetamines Screen Neg NEGATIVE Urine Benzodiazepines Screen Neg NEGATIVE Urine Cocaine Screen Neg NEGATIVE Urine Cannabinoids Screen Neg NEGATIVE Stool for White Cells None seen HIV (1&2) Antibody Negative Negative Test 04/22/25 10:45 04/22/25 05:13 12/6/25 14:06 Range/Units Prothrombin Time 11.5 9.3-11.8 sec Prothrombin Time INR 1.09 0.9-1.15 Activated Partial Thromboplast Time 26.8 24.5-34.5 SEC Nucleated Red Blood Cells 5.0 % Poikilocytosis (manual) Slight Anisocytosis (manual) Marked Target Cells Few Tear Drop Cells Few Ovalocytes Moderate Schistocytes Moderate Hemoglobin A1c 6.1 H <5.7 % A1C Phosphorus Level 4.2 2.4-5.1 mg/dL Magnesium Level 2.3 1.6-2.6 mg/dL Total Bilirubin 0.5 0.2-1.0 mg/dL Aspartate Amino Transferase (AST) 25 13-40 U/L Alanine Aminotransferase (ALT) 12 7-40 U/L Alkaline Phosphatase 81 46-116 U/L Total Protein 6.1 5.7-8.2 g/dL Albumin 3.4 3.2-4.8 g/dL Vitamin B12 Level 539 211-911 pg/mL Vitamin D 25-Hydroxy 52.2 30.0-100 ng/mL Thyroid Stimulating Hormone (TSH) 1.76 0.55-4.78 uIU/mL Troponin I High Sensitivity 5 </=34 ng/L Plan/Recommendation 85 yo F with failed ORIF right hip with right hip femoral neck fracture 1. Discussed hardware removal with conversion to right total hip arthroplasty as patient continues to be wheelchair bound and losing quality of life - Failed CRPP of hip -- patient will require arthroplasty surgery 2. Risk benefits options and alternatives reviewed in depth. RIsks include but not exclusive to bleeding infection nerve injury hardware failure leg length discrepancy blood clots cardiac and pulmonary complications dislocation amputation and . Patient and family understand the morbidity and mortality of surgery and wish to proceed plan for right hip arthroplasty, hardware removal with Dr. Jordan/Lazara 3. npo/ivf 4. pain control Plan discussed with: Patient, Daughter YOBANI COTA MD Apr 23, 2025 08:18 DICTATED BY:YOBANI COTA MD DICTATED DATE/TIME:04/23/25817 ELECTRONICALLY SIGNED BY:YOBANI COTA MD 04/23/25817 ELECTRONICALLY CO-SIGNED BY: Condition at Discharge: Stable Final Diagnosis/Problems List s/p Right hip hardware removal with conversion to right total hip arthroplasty # Elective surgery for right total hip replacement - completed 04/24/2025 # History of bilateral hip repair # Multiple mechanical falls with no loss of consciousness # Degenerative disc disease # History of chronic mild compression fractures of L L2, L5 and T12 # History of right 4th digit fracture # Osteopenia # Hypereosinophilia # Rule out hypereosinophilic syndrome (questionable endomyocardial fibrosis) # Chronic diastolic congestive heart failure (HFpEF, LVEF 55-60%) # Moderate Pulmonary hypertension (RVSP 55-60 mmHg) # Moderate tricuspid regurgitation # Hypereosinophilia # Thrombocytosis # Severe Normocytic anemia #Probable mild cognitive impairment Discharge Disposition: [facility] Facility Discharge Instruct/Medications Diet: Consistent carbohydrate, Cardiac 2g Na,low cholest Activity: See Comment Activity comment: As per physical therapy recommended Follow Up/Referral: MD at [facility] Orthopedic surgeon PCP Scheduled Acetaminophen W/ Codeine (Acetaminophen/Codeine), 1 TAB PO TID, (Reported) Alendronate Sodium (Alendronate Sodium), 1 TAB PO QWEEKLY, (Reported) Amlodipine Besylate (Amlodipine Besylate), 1 TAB PO DAILY, (Reported) Aspirin (Aspirin Low Dose), 1 TAB PO DAILY, (Reported) Bumetanide (Bumetanide), 1 TAB PO BID, (Reported) Carvedilol (Carvedilol), 1 TAB PO BID, (Reported) Cholecalciferol (Vitamin D3), 50 MCG PO DAILY, (Reported) Clobetasol Propionate (Clobetasol Propionate), CRE TOP UD, (Reported) Docusate Sodium (Docusate Sodium), 2 CAP PO HS, (Reported) Ferrous Sulfate (Ferrous Sulfate), 1 TAB PO DAILY, (Reported) Hydroxyzine Hcl (Hydroxyzine Hcl), 1 TAB PO HS, (Reported) Latanoprost (Latanoprost), 1 DROP EACHEYE QPM, (Reported) Potassium Chloride (Potassium Chloride ER), 20 MEQ PO DAILY, (Reported) Prednisone (Prednisone), 1 TAB PO DAILY, (Reported) Pregabalin (Pregabalin), 1 CAP PO BID, (Reported) Rivaroxaban (Xarelto), 1 TAB PO BID, (Reported) Sildenafil Citrate (Viagra), 25 MG PO BID, (Reported) Tacrolimus (Tacrolimus), 1 APPLIC TOP BID PRN, (Reported) Scheduled PRN Calamine (Calamine), 1 LOT EX BIDPRN PRN Meloxicam (Meloxicam), 7.5 MG PO DAILY PRN Discontinued Medications Prednisone (Prednisone), 5 MG PO DAILY, (Reported) Discontinued Reason: Prescription changed Rivaroxaban (Xarelto), 2.5 MG PO BID, (Reported) Discontinued Reason: Prescription changed Discharge Statement: "Patient was advised to return to the ER or call 911 if any headaches, dizziness, shortness of breath, chest pain, abdominal pain, bleeding, fevers, or worsening of medical condition. Patient was counseled about treatment plan, medications, possible side effects, patientverbalized understanding. All questions were answered to the best of my ability. This discharge took greater then 30 minutes in planning, reviewing documentation, counseling the patient, and discussing with other team members." ASSESSMENT ASSESSMENT Assessment # Elective surgery for right total hip replacement - completed 04/24/2025 # History of bilateral hip repair # Multiple mechanical falls with no loss of consciousness # Degenerative disc disease # History of chronic mild compression fractures of L L2, L5 and T12 # History of right 4th digit fracture # Osteopenia # Hypereosinophilia # Rule out hypereosinophilic syndrome (questionable endomyocardial fibrosis) # Chronic diastolic congestive heart failure (HFpEF, LVEF 55-60%) # Moderate Pulmonary hypertension (RVSP 55-60 mmHg) # Moderate tricuspid regurgitation # Hypereosinophilia # Thrombocytosis # Severe Normocytic anemia Probable mild cognitive impairment Visit Coding STANDARD RES Billing Provider: TAVON RANGEL MD Date of Service if different f: Apr 25, 2025 Common Visit Codes: 50232-TSL/OBS DISCH DAY >30min TEJINDER LOW RESIDENT Apr 25, 2025 17:36 PETE ESCOBEDO RESIDENT Apr 25, 2025 23:25
[2025-04-26 01:00] VITALS: BP 109/64; PULSE 99; RESP 18; TEMP 99.5; O2SAT 92
--- NOTE | 2025-04-26 07:45 | DVHPN2 ---
Progress Note Date Seen: Apr 26, 2025 Medical Necessity Reason Pt with a Central, PICC or Fol: No Subjective Patient reports: No new complaints Objective vital signs Vital Sign Date Time Temp Pulse Resp B/P (MAP) Pulse Ox O2 Delivery O2 Flow Rate FiO2 04/26/25 01:00 99.5 99 18 109/64 (79) 92 99.5 04/25/25 20:00 Room Air* 0 21 Total Intake and Output 04/25/25 04/25/25 04/26/25 15:00 23:00 07:00 Intake Total 950 ml 240 ml Balance 950 ml 240 ml medications Current Medications Medications Dose Ordered Sig/Santiago Route Start Time Stop Time Status Last Admin Dose Admin Amlodipine Besylate 5 mg DAILY PO 04/22/25 10:00 04/25/25 09:15 5 MG Sodium Chloride 10 ml Q8HR IV 04/21/25 22:00 04/26/25 07:33 10 ML Acetaminophen/ Hydrocodone Bitart 1 tab Q4HP PRN PO 04/21/25 21:15 04/26/25 02:59 1 TAB Ondansetron HCl 4 mg Q4HP PRN IV 04/21/25 21:15 Docusate Sodium 100 mg BIDPRN PRN PO 04/21/25 21:15 Acetaminophen 650 mg Q6HP PRN PO 04/21/25 21:15 04/22/25 08:49 650 MG Ferrous Sulfate 325 mg DAILY PO 04/22/25 10:00 04/25/25 09:11 325 MG Cefazolin Sodium 50 ml @ 100 mls/hr Q8HR IV 04/23/25 14:00 04/25/25 21:58 100 MLS/HR Examination: GENERAL:Normal, MSK:Abnormal laboratory and microbiology Laboratory Tests 04/25/25 06:54 Test 04/25/25 06:54 Range/Units Serum Glucose 89 74-106 mg/dL Problem List/Assessment/Plan Problem List/Assessment/Plan 85 year old female who is s/p Right hip hardware removal with conversion to right total hip arthroplasty POD 3 1. Pain control 2. WBAT 3. PT 4. DVT ppx 5. anemia has improved 6. patient to follow up on 05/08/2025 at 9:00 as scheduled 7. prescriptions for pain medication and DVT prophylaxis sent to preferred pharmacy for post-SNF 8. dressings to remain intact until first postop visit 9. patient is clear for discharge from orthopedic standpoint with the following discharge recommendations: POSTOPERATIVE Posterior Total Hip INSTRUCTIONS Activity: 1. You can bear as much weight as you tolerate on your hip unless specifically instructed otherwise. You may use the walking aid which you were discharged with and switch to a cane whenever you feel comfortable doing so. You should use an assistive device until you can walk comfortably without it. Keep in mind that every patient moves at their own speed of recovery so take your time. 2. A physical therapist will visit you at home. 3. Although guarantees against a dislocation do not exist, the hip was noted to be sufficiently stable in surgery. Below are motions that you should dischargenot do for 4-6 weeks, depending on the surgical approach used. If there are questions, please call the office. a. Bend forward past 90 degrees b. Sit on a regular low chair, couch, car seat etc... c. Cross your legs d. Use a regular low toilet seat. e. Sleep on your stomach or on either side. 3. High impact activity such as jumping, aerobics, tennis, and skiing are not permitted during the first 3 months after surgery. These activities can contribute to accelerated wear and should be done with caution after this time. Discuss this with your surgeon if you have questions. 4. Although a bath or whirlpool is NOT permitted during the first 2-3 weeks, you may shower as soon as you get home from the hospital provided you are able to keep your bandage clean and dry and there is no wound drainage. If you are unable to place a secured covering over your bandage bed bath/sponge bath may likely be the more appropriate option. 5. Swimming is not permitted until the wound is healed, which typically occurs approximately 3-4 weeks after surgery. Wound Management: If the wound is draining please change the gauze pad on the wound until it stops. If drainage persists past 10 days please notify our office. If there is a sticky gel dressing over your wound, you may leave this in place for as long as it is clean and dry. If it becomes loose or causes skin irritation, it is OK to remove it and place clean gauze over your wound. 1. You might notice some bruising around the surgical site, this is normal. 2. Check your temperature on a daily basis. Please note that a low-grade temp below 101 is not uncommon after surgery especially during the first 3 days. Notify the office if your temperature spikes above 101.5 after the 3rd post- operative date. 3. Many patients experience significant swelling in the thigh, this may extend below the knee and sometimes to the ankle. Swelling increases during the first week and subsides during the following week. 4. Provided you have been on a blood thinner since surgery and have been up and about at least three times per day, the risk of a blood clot is low and this swelling is an expected part of recovery. It will largely or completely resolve by your first post-operative visit. 5. Concrete, if present, will be removed at 2 weeks during initial post-op visit. Medications: 1. You will be discharged with pain medication, Aspirin as a blood thinner and sometimes an anti-inflammatory medication such as Celebrex or Mobic might be prescribed. Please follow the instructions regarding these medicines as provided by your nurse at the hospital. 2. Narcotic pain medication has side effects, including constipation. Please ensure you continue to take stool softeners (Colace, Senna) while taking your pain medication to help protect against constipation. Getting up and moving around at least a few times per day helps with this also. 3. Lovenox 40 Sq x 12 days followed by one regular strength 325 mg coated aspirin daily for 4 weeks after surgery. Then, take one baby aspirin, 81 mg daily for 6 weeks more. A major, yet preventable, complication of Orthopaedic Surgery is a blood clot (DVT). It is important not to miss any doses of this important medication. 4. You should restart all of your prescription medications once discharged unless specifically instructed otherwise. 5. Herbal supplements may be restarted 2 weeks after surgery. Miscellaneous issues: 1. Driving is not permitted within the first 2 weeks. 2. Your first postoperative visit will take place 2weeks after discharge. Please call the office to arrange this appointment. 3. Antibiotic preventative treatment is required before dental or other invasive procedures. Please ask your surgeon about this at your first postoperative visit. Your hip replacement contains metal which may activate metal detectors. You may wish to carry a letter from your surgeon to communicate this to security personnel. If you experience chest pain, shortness of breath or severe painful calf swelling, go to the nearest emergency room to be evaluated. Please call our office once your situation is stabilized. Plan discussed with: Patient Date of Service: Apr 26, 2025 Billing Provider: YOBANI COTA MD Common Visit Codes: NOT BILLABLE LUCIANA RAUSCH NP Apr 26, 2025 07:45
[2025-04-26 09:00] VITALS: BP 99/60; PULSE 74; RESP 18; TEMP 99.2; O2SAT 90
[2025-04-26 11:50] VITALS: BP 111/56; PULSE 96; RESP 20; TEMP 98.3; O2SAT 95
--- NOTE | 2025-04-26 15:59 | DVHPNRES ---
Progress Note Date Seen: Apr 26, 2025 Resident Creating Document: TEJINDER LOW Medical Necessity Reason Pt with a Central, PICC or Fol: No Subjective Review of Systems Gabriela Lunsford is a 85-year-old female patient who presents to the ED with chief complaint of requirement of admission due to elective right total hip replacement surgery (patient has rods placed which have to be exchange) with previous medical clearance. Patient was seen the outpatient clinic by Dr. Gaspar who completed stress test. Patient denies any symptoms. Past medical history: Hypertension, bilateral hip fracture secondary to mechanical fall status postop. Surgical history: Bilateral hip fracture repair with rods Family history: Noncontributory Social history: Lives in [place] with family (next of kin is daughter Frida). Denies tobacco, alcohol and other drug abuse Allergies: Memantine Home medication: Patient seen and examined at bedside. Labs and chart reviewed Hemoglobin today 8.3 Pending placement for SNF for physical therapy Objective vital signs Vital Sign Date Time Temp Pulse Resp B/P (MAP) Pulse Ox O2 Delivery O2 Flow Rate FiO2 04/26/25 11:50 98.3 96 20 111/56 (74) 95 98.3 04/26/25 08:00 Room Air* 0 21 Total Intake and Output 04/25/25 04/25/25 04/26/25 15:00 23:00 07:00 Intake Total 950 ml 240 ml Balance 950 ml 240 ml medications Current Medications Medications Dose Ordered Sig/Santiago Route Start Time Stop Time Status Last Admin Dose Admin Amlodipine Besylate 5 mg DAILY PO 04/22/25 10:00 04/25/25 09:15 5 MG Sodium Chloride 10 ml Q8HR IV 04/21/25 22:00 04/26/25 10:48 10 ML Acetaminophen/ Hydrocodone Bitart 1 tab Q4HP PRN PO 04/21/25 21:15 04/26/25 02:59 1 TAB Ondansetron HCl 4 mg Q4HP PRN IV 04/21/25 21:15 Docusate Sodium 100 mg BIDPRN PRN PO 04/21/25 21:15 Acetaminophen 650 mg Q6HP PRN PO 04/21/25 21:15 04/22/25 08:49 650 MG Ferrous Sulfate 325 mg DAILY PO 04/22/25 10:00 04/26/25 10:48 325 MG Cefazolin Sodium 50 ml @ 100 mls/hr Q8HR IV 04/23/25 14:00 04/26/25 13:02 100 MLS/HR Examination General examination- awake, alert HEENT- PEERLA, no acute nasal discharge Cardiovascular- S1-S2 audible, rate and rhythm regular, no murmur Respiratory- CTAB, no wheeze or rhonchi Gastrointestinal-nontender, bowel sound+. Nondistended Musculoskeletal-no acute joint swelling or tenderness or redness Lower extremity- right lower extremity hip bandage Neurological- cranial nerves intact, no acute dysarthria or dysphagia Psychiatry- denies depression or SI or HI Skin- no acute rash or purpura laboratory and microbiology Laboratory Tests 04/25/25 06:54 Test 04/25/25 06:54 Range/Units Serum Glucose 89 74-106 mg/dL Problem List/Assessment/Plan Problem List/Assessment/Plan Problem List/Assessment/Plan Elective surgery for right total hip replacement History of bilateral hip repair Multiple mechanical falls with no loss of consciousness Degenerative disc disease History of chronic mild compression fractures of L L2, L5 and T12 History of right 4th digit fracture Osteopenia 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 Removal of hardware, application of wound vac Postoperative C-arm fluoroscopy revealed- Spot intraoperative C arm radiographs demonstrating right hip hemiarthroplasty. -pending placement for SNF Hypereosinophilia Rule out hypereosinophilic syndrome (questionable endomyocardial fibrosis) Chronic diastolic congestive heart failure (HFpEF, LVEF 55-60%) Moderate Pulmonary hypertension (RVSP 55-60 mmHg) Moderate tricuspid regurgitation Patient has above 5000 eosinophils (6039, leukocytes 9.9 and eosinophils 61%). Troponin negative x2 (6-5) Last echocardiogram completed was on 11/2024 which showed LVEF 55-60%, mild LVH, mild diastolic dysfunction, RV mildly dilated with normal function, moderate TR and moderate pulmonary hypertension (RVSP 55-60 mmHg) -Monica antibody< 0.02, SSS/RO antibody 3.8, SSB/La antibody< 0.02, speech antibody< 0.2, OFFLINE CUTTER 0.8, Scl 70 scleroderma antibody 0.2, double-stranded DNA antibody 2, chromatin antibody< 0.02, centromere B antibody< 0.2 Cardiology consulted (Dr Gaspar), patient had completed stress test in the outpatient setting, pending results. Hypereosinophilia Thrombocytosis Normocytic anemia Patient may eventually benefit from bone marrow biopsy Probable mild cognitive impairment Follow up as outpatient Patient is allergic to memantine Goals of care discussed with patient for over 25 minutes: Full code status Discussed plan with Dr. Rangel, patient and nurses: Plan discussed with: Patient, Other (RN) Visit Coding STANDARD RES Billing Provider: TAVON RANGEL MD Date of Service if different f: Apr 26, 2025 Common Visit Codes: [id number] INP/OBS CARE(HIGH) TEJINDER LOW RESIDENT Apr 26, 2025 15:59
[2025-04-26 16:44] VITALS: BP 99/60; TEMP 36.8
[2025-04-26 16:50] LABS: Hematocrit 24.9 % (36.0-46.0); Hemoglobin 8.4 g/dL (12.2-16.2); Mean Corpuscular Hemoglobin 29.6 pg (28.0-32.0); Mean Corpuscular Volume 88.1 fL (80.0-100.0)
[2025-04-26 16:51] VITALS: BP 119/69; PULSE 94; RESP 18; TEMP 98.3; O2SAT 98
[2025-04-26 17:18] LABS: Total Cells Counted 100.0 (100)
[2025-04-26 17:19] LABS: Anisocytosis Moderate
[2025-04-26 21:00] VITALS: BP 101/56; PULSE 104; RESP 18; TEMP 100.2; O2SAT 92
[2025-04-27] VITALS (7 sets, daily range): BP systolic 103–117; BP diastolic 61–70; PULSE 91–98; RESP 16–18; TEMP 37; O2SAT 92–99
--- NOTE | 2025-04-27 15:29 | DVHPNRES ---
Progress Note Date Seen: Apr 27, 2025 Resident Creating Document: TEJINDER LOW Medical Necessity Reason Pt with a Central, PICC or Fol: No Subjective Review of Systems Gabriela Lunsford is a 85-year-old female patient who presents to the ED with chief complaint of requirement of admission due to elective right total hip replacement surgery (patient has rods placed which have to be exchange) with previous medical clearance. Patient was seen the outpatient clinic by Dr. Gaspar who completed stress test. Patient denies any symptoms. Past medical history: Hypertension, bilateral hip fracture secondary to mechanical fall status postop. Surgical history: Bilateral hip fracture repair with rods Family history: Noncontributory Social history: Lives in [place] with family (next of kin is daughter Frida). Denies tobacco, alcohol and other drug abuse Allergies: Memantine Home medication: Patient seen and examined at bedside. Labs and chart reviewed Hemoglobin today 8.3 P[address] placement for SNF for physical therapy Objective vital signs Vital Sign Date Time Temp Pulse Resp B/P (MAP) Pulse Ox O2 Delivery O2 Flow Rate FiO2 04/27/25 13:10 37.0 04/27/25 12:56 98 16 103/61 (75) 94 04/27/25 08:00 Room Air* 0 21 Total Intake and Output 04/26/25 04/26/25 04/27/25 15:00 23:00 07:00 Intake Total 50 ml 640 ml 300 ml Output Total 400 ml Balance 50 ml 240 ml 300 ml medications Current Medications Medications Dose Ordered Sig/Santiago Route Start Time Stop Time Status Last Admin Dose Admin Amlodipine Besylate 5 mg DAILY PO 04/22/25 10:00 04/27/25 10:04 5 MG Sodium Chloride 10 ml Q8HR IV 04/21/25 22:00 04/27/25 06:16 10 ML Acetaminophen/ Hydrocodone Bitart 1 tab Q4HP PRN PO 04/21/25 21:15 04/26/25 02:59 1 TAB Ondansetron HCl 4 mg Q4HP PRN IV 04/21/25 21:15 Docusate Sodium 100 mg BIDPRN PRN PO 04/21/25 21:15 Acetaminophen 650 mg Q6HP PRN PO 04/21/25 21:15 04/22/25 08:49 650 MG Ferrous Sulfate 325 mg DAILY PO 04/22/25 10:00 04/27/25 10:04 325 MG Cefazolin Sodium 50 ml @ 100 mls/hr Q8HR IV 04/23/25 14:00 04/27/25 13:58 100 MLS/HR Examination General examination- awake, alert HEENT- PEERLA, no acute nasal discharge Cardiovascular- S1-S2 audible, rate and rhythm regular, no murmur Respiratory- CTAB, no wheeze or rhonchi Gastrointestinal-nontender, bowel sound+. Nondistended Musculoskeletal-no acute joint swelling or tenderness or redness Lower extremity- right lower extremity hip bandage Neurological- cranial nerves intact, no acute dysarthria or dysphagia Psychiatry- denies depression or SI or HI Skin- no acute rash or purpura laboratory and microbiology Laboratory Tests 04/26/25 16:32 04/25/25 06:54 Test 04/25/25 06:54 Range/Units Serum Glucose 89 74-106 mg/dL Problem List/Assessment/Plan Problem List/Assessment/Plan Problem List/Assessment/Plan Elective surgery for right total hip replacement History of bilateral hip repair Multiple mechanical falls with no loss of consciousness Degenerative disc disease History of chronic mild compression fractures of L L2, L5 and T12 History of right 4th digit fracture Osteopenia 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 Removal of hardware, application of wound vac Postoperative C-arm fluoroscopy revealed- Spot intraoperative C arm radiographs demonstrating right hip hemiarthroplasty. -patient is scheduled to go to SNF today Hypereosinophilia Rule out hypereosinophilic syndrome (questionable endomyocardial fibrosis) Chronic diastolic congestive heart failure (HFpEF, LVEF 55-60%) Moderate Pulmonary hypertension (RVSP 55-60 mmHg) Moderate tricuspid regurgitation Patient has above 5000 eosinophils (6039, leukocytes 9.9 and eosinophils 61%). Troponin negative x2 (6-5) Last echocardiogram completed was on 11/2024 which showed LVEF 55-60%, mild LVH, mild diastolic dysfunction, RV mildly dilated with normal function, moderate TR and moderate pulmonary hypertension (RVSP 55-60 mmHg) -Monica antibody< 0.02, SSS/RO antibody 3.8, SSB/La antibody< 0.02, speech antibody< 0.2, INSTRUMENT REPAIR TECHNICIAN 0.8, Scl 70 scleroderma antibody 0.2, double-stranded DNA antibody 2, chromatin antibody< 0.02, centromere B antibody< 0.2 Cardiology consulted (Dr Gaspar), patient had completed stress test in the outpatient setting, pending results. Hypereosinophilia Thrombocytosis Normocytic anemia Patient may eventually benefit from bone marrow biopsy Probable mild cognitive impairment Follow up as outpatient Patient is allergic to memantine Goals of care discussed with patient for over 25 minutes: Full code status Discussed plan with Dr. Rangel, patient and nurses: Plan discussed with: Patient, Other (RN) Visit Coding STANDARD RES Billing Provider: TAVON RANGEL MD Date of Service if different f: Apr 27, 2025 Common Visit Codes: [id number] INP/OBS CARE(HIGH) TEJINDER LOW RESIDENT Apr 27, 2025 15:29
== END 2025-04-27 19:50 | DRG 499 ==
LOC: ER 12:36 → OVERFLOW 21:11 → TELE-WESTW 23:51 → WEST WING 04-25 08:51
PROVIDERS: ADMIT Internal Medicine Geriatric Medicine; ATTEND Internal Medicine Geriatric Medicine
PROC: 0QPB04Z Removal of Internal Fixation Device from Right Lower Femur, Open Approach (ICD-10-PCS; principal; 2025-04-23 10:04)
PROC: 30233N1 Transfusion of Nonautologous Red Blood Cells into Peripheral Vein, Percutaneous Approach (ICD-10-PCS; 2025-04-24)
DX: S72.001A Fracture of unspecified part of neck of right femur, initial encounter for closed fracture (principal); D72.19 Other eosinophilia; I10 Essential (primary) hypertension; D75.839 Thrombocytosis, unspecified; M81.0 Age-related osteoporosis without current pathological fracture; Z96.641 Presence of right artificial hip joint; W19.XXXA Unspecified fall, initial encounter; Z90.710 Acquired absence of both cervix and uterus; Y92.008 Other place in unspecified non-institutional (private) residence as the place of occurrence of the external cause; Y93.89 Activity, other specified; Y99.8 Other external cause status
CPT/HCPCS: 36415; 71045; 73501; 73502; 73562; 76000; 80048; 80053; 80074; 80307; 81001; 82306; 82607; 83036; 83516; 83735; 84100; 84443; 84484; 85007; 85014; 85018; 85025; 85027; 85048; 85610; 85730; 86225; 86235; 86703; 86850; 86900; 86901; 86920; 93005; 93306; 97110; 97116; 97163; 97530; G0378; J0131; J1100; J1885; J2250; J2405; J2704; J3490